=== PATIENT | male | born 1940 | race African-American/Black ===

== ENCOUNTER 2020-07-24 10:15 | Inpatient (IN) | payer OTHER ==
[~2020-07-24] VITALS: Ht 172.7 cm; Wt 78.9 kg
--- NOTE | 2020-07-24 00:32 | NUR ---
NURSE NOTES: Pt is on cardiac monitoring Afib and asymptomatic. Pt in confused and states no history of Afib. Notified MD. Will continue to monitor.
[2020-07-24 10:20] VITALS: BP 150/84
--- NOTE | 2020-07-24 10:20 | NUR ---
ED Nurse Note: Patient from home and brought in by RA 34 due to back pain and ,upper abd pain and chest pain x 4 days. States pain is worse when breathing. AAO x4, ambulatory with SOB upon exertion. Normally on oxygen at 5LPM.
--- NOTE | 2020-07-24 10:22 | Emergency Room Report ---
History of Present Illness General Chief Complaint: Chest Pain Source: Patient, EMS Present Illness HPI 79-year-old male past medical history of emphysema, history of smoking presents with abdominal pain sharp left lower abdomen to right abdomen severity is moderate, constant no known aggravating or alleviating factors, he states the pain also radiates to his chest patient denies shortness of breath no nausea no vomiting no fevers no chills, patient presents for evaluation and treatment no dysuria Allergies: Coded Allergies: No Known Allergies (Unverified , 07/24/20) COVID-19 Screening Contact w/high risk pt: No Experienced COVID-19 symptoms?: No COVID-19 Testing performed CLINICAL IMPLEMENTATION SPECIALIST: No Patient History Past Medical History: see triage record Reviewed Nursing Documentation: PMH: Agreed; PSxH: Agreed Nursing Documentation-PMH Past Medical History: No History, Except For Hx Hypertension: Yes Hx COPD: Yes Review of Systems All Other Systems: negative except mentioned in HPI Physical Exam Vital Signs Date Time Temp Pulse Resp B/P (MAP) Pulse Ox O2 Delivery O2 Flow Rate FiO2 07/24/20 10:10 97.9 66 18 118/68 (85) 99 Nasal Cannula 3.0 Sp02 EP Interpretation: reviewed, normal General Appearance: well appearing, no apparent distress, alert Head: normocephalic, atraumatic Eyes: bilateral eye PERRL, bilateral eye EOMI ENT: uvula midline, moist mucus membranes Neck: supple, thyroid normal, supple/symm/no masses Respiratory: no respiratory distress, no retraction, no accessory muscle use, decreased breath sounds Cardiovascular #1: normal peripheral pulses, no edema, no gallop, no murmur, irregularly irregular Gastrointestinal: soft, no guarding, no rebound, tenderness - Left middle left lower Musculoskeletal: normal inspection Neurologic: alert, oriented x3 Psychiatric: mood/affect normal Skin: no rash, warm/dry Medical Decision Making Diagnostic Impression: Primary Impression: Chest pain Qualified Codes: R07.9 - Chest pain, unspecified Additional Impression: Lung mass ER Course 79-year-old male presents with chest pain, abdominal pain differential includes AAA, pulmonary embolism, dissection CTA negative CTA shows a right pulmonary lung mass Patient will be admitted for ACS work-up as well as work-up of his pulmonary mass Patient admitted to Dr. Garcia Laboratory Tests Test 07/24/20 10:25 07/24/20 11:40 White Blood Count 6.8 K/UL (4.8-10.8) Red Blood Count 3.49 M/UL (4.70-6.10) L Hemoglobin 10.8 G/DL (14.2-18.0) L Hematocrit 33.7 % (42.0-52.0) L Mean Corpuscular Volume 96 FL (80-99) Mean Corpuscular Hemoglobin 30.9 PG (27.0-31.0) Mean Corpuscular Hemoglobin Concent 32.1 G/DL (32.0-36.0) Red Cell Distribution Width 14.1 % (11.6-14.8) Platelet Count 195 K/UL (150-450) Mean Platelet Volume 6.7 FL (6.5-10.1) Neutrophils (%) (Auto) 48.1 % (45.0-75.0) Lymphocytes (%) (Auto) 41.6 % (20.0-45.0) Monocytes (%) (Auto) 8.7 % (1.0-10.0) Eosinophils (%) (Auto) 0.2 % (0.0-3.0) Basophils (%) (Auto) 1.4 % (0.0-2.0) Prothrombin Time 12.4 SEC (9.30-11.50) H Prothrombin Time INR 1.1 (0.9-1.1) Activated Partial Thromboplast Time 32 SEC (23-33) Sodium Level 131 MMOL/L (136-145) L Potassium Level 4.3 MMOL/L (3.5-5.1) Chloride Level 100 MMOL/L (98-107) Carbon Dioxide Level 28 MMOL/L (21-32) Anion Gap 3 mmol/L (5-15) L Blood Urea Nitrogen 20 mg/dL (7-18) H Creatinine 1.4 MG/DL (0.55-1.30) H Estimated Glomerular Filtration Rate 59.4 mL/min (>60) Glucose Level 98 MG/DL (74-106) Calcium Level 12.0 MG/DL (8.5-10.1) H Total Bilirubin 0.4 MG/DL (0.2-1.0) Aspartate Amino Transferase (AST) 14 U/L (15-37) L Alanine Aminotransferase (ALT) 15 U/L (12-78) Alkaline Phosphatase 78 U/L (46-116) Troponin I 0.010 ng/mL (0.000-0.056) Pro-B-Type Natriuretic Peptide 1032 pg/mL (0-125) H Total Protein 8.7 G/DL (6.4-8.2) H Albumin 2.4 G/DL (3.4-5.0) L Globulin 6.3 g/dL Albumin/Globulin Ratio 0.4 (1.0-2.7) L Lipase 37 U/L (73-393) L Urine Color Pale yellow Urine Appearance Clear Urine pH 5 (4.5-8.0) Urine Specific [place] 1.010 (1.005-1.035) Urine Protein Negative (NEGATIVE) Urine Glucose (UA) Negative (NEGATIVE) Urine Ketones Negative (NEGATIVE) Urine Blood Negative (NEGATIVE) Urine Nitrite Negative (NEGATIVE) Urine Bilirubin Negative (NEGATIVE) Urine Urobilinogen Normal MG/DL (0.0-1.0) Urine Leukocyte Esterase Negative (NEGATIVE) Microbiology Date/Time Source Procedure Growth Status 07/24/20 10:25 Nasopharynx SARS-CoV-2 RdRp Gene Assay - Final Complete EKG Diagnostic Results Troponin ordered: Yes When was troponin ordered?: Jul 24, 2020 - 1013 EKG Time: 10:14 EP Interpretation: Atrial fibrillation, rate 71, QTc 393, no acute associations, left axis dev Rhythm Strip Diag. Results Rhythm Strip Time: 10:22 EP Interpretation: yes Rate: 71 Rhythm: other - Atrial fibrillation Chest X-Ray Diagnostic Results Chest X-Ray Diagnostic Results : Chest X-Ray Ordered: Yes # of Views/Limited/Complete: 1 View Indication: Chest Pain EP Interpretation: Yes Interpretation: no consolidation, no effusion, no pneumothorax, no acute cardiopulmonary disease Impression: No acute disease Electronically Signed by: Robin Fuchs MD CT/MRI/US Diagnostic Results CT/MRI/US Diagnostic Results : Impression Procedure: CTA Chest w Contrast ndication: Chest pain Technique: IV administration nonionic contrast. Spiral acquisitions obtained from the lung bases to the lung apices. Multiplanar and 3-D reconstructions were generated. Total dose length product 468 mGycm. CTDIvol(s) 3, 62, 4, 4 mGy. Dose reduction achieved using automated exposure control Comparison: none Findings: The pulmonary arteries are well-opacified. No intraluminal filling defects or other findings to suggest acute pulmonary embolus are evident. The main pulmonary artery is dilated, measuring 4.3 cm in diameter, and the right and left pulmonary arteries are also dilated. The ascending thoracic aorta is ectatic although not frankly aneurysmal, measuring up to 4.3 cm in diameter. There is a mass in the right upper lobe. This demonstrates peripheral enhancement, central attenuations just above necrosis. This measures 7 x 6.5 x 7 cm. There is right hilar adenopathy, with multiple nodes in the right hilum, largest measuring 4 cm in diameter, also demonstrating some central low-attenuation. There is also mediastinal lymphadenopathy, the largest precarinal node measuring 3.7 cm long axis dimension. The lymphadenopathy results in mild narrowing of some of the segmental pulmonary arteries. The lungs are hyperinflated. There is centrilobular emphysema and bilateral bullous changes, the latter predominantly in the upper lobes but with also considerable mostly interstitial bullae in the lower lobes. Areas of scarring are demonstrated bilaterally. There is a small left pleural effusion No infiltrates are demonstrated. The heart size is normal. There is a pericardial effusion mostly anteriorly which measures up to 11 mm in thickness. The included thyroid is unremarkable. There is bilateral gynecomastia. There is diffuse mild edema of the subcutaneous fat. Please refer to report of abdominal pelvic CT performed the same time for findings in the upper abdomen. Impression: Negative for evidence of acute pulmonary embolus or other acute pulmonary pathology. 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 Pericardial effusion Incidental finding of bilateral gynecomastia Evidence of mild anasarca, with diffuse edema of the subcutaneous fat. The CT scanner at [facility] is accredited by the [employer] and the scans are performed using protocols designed to limit radiation exposure to as low as reasonably achievable to attain images of sufficient resolution adequate for diagnostic evaluation. Dictated By: Joseph Mares MD Electronically Signed By:Joseph Mares MD Signed Date/Time07/24/20 1303 CC: Robin Fuchs MD Procedure: CT Abdomen Pelvis w/Contrast Clinical Indication: Abdominal pain Technique: No oral contrast utilized, per emergency room physician request IV administration nonionic contrast. Venous phase spiral acquisition obtained through the abdomen and pelvis. Multiplanar reconstructions were generated. Total dose length product 468 mGycm. CTDIvol(s) 3, 62, 4, 4 mGy. Dose reduction achieved using automated exposure control Comparison: none Findings: Lack of enteric contrast limits assessment of the GI tract. No evidence of colonic diverticulosis or diverticulitis. The appendix is not definitely visualized, but no findings to suggest acute appendicitis are evident. No small bowel distention. No free or loculated intraperitoneal gas or fluid is evident. Distal esophagus, stomach, duodenum are unremarkable. The gallbladder contains gallstones. No biliary ductal dilatation. The liver, bile ducts, pancreas, spleen, adrenals are unremarkable. The kidneys demonstrate multiple cysts. There is a complex septated cyst with calcification in the right upper pole. There are numerous subcentimeter low-attenuation renal lesions bilaterally, too small to characterize but most likely representing benign simple cysts. The bladder is markedly distended. It demonstrates numerous diverticula, several large. The prostate is mildly enlarged. There are degenerative changes of the lumbar spine. There is also evidence of multilevel prior laminectomies. Please refer to separate CTA chest report for findings in the visualized lung bases Impression: Limited assessment of the GI tract, due to lack of enteric contrast administration Markedly distended bladder. 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 Evidence of prior lumbar spine surgery Please refer to separate chest CT angiogram report for findings in the chest The CT scanner at [facility] is accredited by the [employer] and the scans are performed using protocols designed to limit radiation exposure to as low as reasonably achievable to attain images of sufficient resolution adequate for diagnostic evaluation. Dictated By: Joseph Mares MD Electronically Signed By:Joseph Mares MD Signed Date/Time07/24/20 1310 CC: Robin Fuchs MD Last Vital Signs Date Time Temp Pulse Resp B/P (MAP) Pulse Ox O2 Delivery O2 Flow Rate FiO2 07/24/20 10:10 97.9 66 18 118/68 (85) 99 Nasal Cannula 3.0 Disposition: ADMITTED INPATIENT Condition: Stable Robin Fuchs MD Jul 24, 2020 10:22
[2020-07-24] MEDS ORDERED: Morphine Sulfate 4mg/ml Inj (IV USE ONLY) IVP ONE (10:30)
[2020-07-24] MEDS ORDERED: Omnipaque 350 100ml vial INJ PRN (10:30)
[2020-07-24] MEDS ORDERED: Omnipaque-300 100ml vial INJ PRN (10:30)
--- NOTE | 2020-07-24 10:46 | NUR ---
ED Nurse Note: Collected blood and covid19 swab then sent.
--- NOTE | 2020-07-24 10:59 | NUR ---
ED Nurse Note: automotive brake technician Alysa at the bed side for CXR.
[2020-07-24 11:02] LABS: BASOPHILS % (AUTO) 1.4 % (0.0-2.0); EOSINOPHILS % (AUTO) 0.2 % (0.0-3.0); HEMATOCRIT 33.7 % (42.0-52.0); HEMOGLOBIN 10.8 G/DL (14.2-18.0); LYMPHOCYTES % (AUTO) 41.6 % (20.0-45.0); MEAN CORPUSCULAR VOLUME 96 FL (80-99); MONOCYTES % (AUTO) 8.7 % (1.0-10.0); NEUTROPHILS % (AUTO) 48.1 % (45.0-75.0); PLATELET COUNT 195 K/UL (150-450); RED BLOOD COUNT 3.49 M/UL (4.70-6.10); RED CELL DISTRIBUTION WIDTH 14.1 % (11.6-14.8); WHITE BLOOD COUNT 6.8 K/UL (4.8-10.8)
[2020-07-24 11:09] LABS: INR 1.1 (0.9-1.1)
[2020-07-24 11:10] LABS: CREATININE 1.4 MG/DL (0.55-1.30); POTASSIUM 4.3 MMOL/L (3.5-5.1)
[2020-07-24 11:20] LABS: ALBUMIN 2.4 G/DL (3.4-5.0); ALBUMIN/GLOBULIN RATIO 0.4 (1.0-2.7); BILIRUBIN,TOTAL 0.4 MG/DL (0.2-1.0)
--- NOTE | 2020-07-24 11:45 | NUR ---
ED Nurse Note: Collected urine specimen then sent.
--- NOTE | 2020-07-24 11:48 | NUR ---
ED Nurse Note: Left AC 20G IV placed for CTA
--- NOTE | 2020-07-24 11:53 | NUR ---
ED Nurse Note: Patient taken to CT via gurney in stable condition. Consent for CTA signed by patient.
[2020-07-24 11:54] LABS: APPEARANCE,URINE CLEAR; BILIRUBIN, URINE NEGATIVE (NEGATIVE); COLOR,URINE PALE YELLOW; GLUCOSE, URINE (UA) NEGATIVE (NEGATIVE); KETONES,URINE NEGATIVE (NEGATIVE); LEUKOCYTE ESTERASE ,URINE NEGATIVE (NEGATIVE); NITRITE,URINE NEGATIVE (NEGATIVE); PH,URINE 5 (4.5-8.0); PROTEIN,URINE NEGATIVE (NEGATIVE); UROBILINOGEN,URINE NORMAL MG/DL (0.0-1.0)
[2020-07-24 12:23] VITALS: BP 123/97
--- NOTE | 2020-07-24 13:08 | Diagnostic Imaging Report ---
ndication: Chest pain Technique: IV administration nonionic contrast. Spiral acquisitions obtained from the lung bases to the lung apices. Multiplanar and 3-D reconstructions were generated. Total dose length product 468 mGycm. CTDIvol(s) 3, 62, 4, 4 mGy. Dose reduction achieved using automated exposure control Comparison: none Findings: The pulmonary arteries are well-opacified. No intraluminal filling defects or other findings to suggest acute pulmonary embolus are evident. The main pulmonary artery is dilated, measuring 4.3 cm in diameter, and the right and left pulmonary arteries are also dilated. The ascending thoracic aorta is ectatic although not frankly aneurysmal, measuring up to 4.3 cm in diameter. There is a mass in the right upper lobe. This demonstrates peripheral enhancement, central attenuations just above necrosis. This measures 7 x 6.5 x 7 cm. There is right hilar adenopathy, with multiple nodes in the right hilum, largest measuring 4 cm in diameter, also demonstrating some central low-attenuation. There is also mediastinal lymphadenopathy, the largest precarinal node measuring 3.7 cm long axis dimension. The lymphadenopathy results in mild narrowing of some of the segmental pulmonary arteries. The lungs are hyperinflated. There is centrilobular emphysema and bilateral bullous changes, the latter predominantly in the upper lobes but with also considerable mostly interstitial bullae in the lower lobes. Areas of scarring are demonstrated bilaterally. There is a small left pleural effusion No infiltrates are demonstrated. The heart size is normal. There is a pericardial effusion mostly anteriorly which measures up to 11 mm in thickness. The included thyroid is unremarkable. There is bilateral gynecomastia. There is diffuse mild edema of the subcutaneous fat. Please refer to report of abdominal pelvic CT performed the same time for findings in the upper abdomen. Impression: Negative for evidence of acute pulmonary embolus or other acute pulmonary pathology. 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 Pericardial effusion Incidental finding of bilateral gynecomastia Evidence of mild anasarca, with diffuse edema of the subcutaneous fat. The CT scanner at [facility] is accredited by the [employer] and the scans are performed using protocols designed to limit radiation exposure to as low as reasonably achievable to attain images of sufficient resolution adequate for diagnostic evaluation.
--- NOTE | 2020-07-24 13:15 | Diagnostic Imaging Report ---
Clinical Indication: Abdominal pain Technique: No oral contrast utilized, per emergency room physician request IV administration nonionic contrast. Venous phase spiral acquisition obtained through the abdomen and pelvis. Multiplanar reconstructions were generated. Total dose length product 468 mGycm. CTDIvol(s) 3, 62, 4, 4 mGy. Dose reduction achieved using automated exposure control Comparison: none Findings: Lack of enteric contrast limits assessment of the GI tract. No evidence of colonic diverticulosis or diverticulitis. The appendix is not definitely visualized, but no findings to suggest acute appendicitis are evident. No small bowel distention. No free or loculated intraperitoneal gas or fluid is evident. Distal esophagus, stomach, duodenum are unremarkable. The gallbladder contains gallstones. No biliary ductal dilatation. The liver, bile ducts, pancreas, spleen, adrenals are unremarkable. The kidneys demonstrate multiple cysts. There is a complex septated cyst with calcification in the right upper pole. There are numerous subcentimeter low-attenuation renal lesions bilaterally, too small to characterize but most likely representing benign simple cysts. The bladder is markedly distended. It demonstrates numerous diverticula, several large. The prostate is mildly enlarged. There are degenerative changes of the lumbar spine. There is also evidence of multilevel prior laminectomies. Please refer to separate CTA chest report for findings in the visualized lung bases Impression: Limited assessment of the GI tract, due to lack of enteric contrast administration Markedly distended bladder. 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 Evidence of prior lumbar spine surgery Please refer to separate chest CT angiogram report for findings in the chest The CT scanner at [facility] is accredited by the [employer] and the scans are performed using protocols designed to limit radiation exposure to as low as reasonably achievable to attain images of sufficient resolution adequate for diagnostic evaluation.
[2020-07-24 14:32] VITALS: BP 106/79
[2020-07-24 16:25] VITALS: BP 112/75
--- NOTE | 2020-07-24 16:31 | NUR ---
ED Nurse Note: Telephone report given to DC Lorenzo for continuity of care.
--- NOTE | 2020-07-24 16:41 | Diagnostic Imaging Report ---
Indication: Chest pain Technique: One view of the chest Comparison: None Findings: Ovoid 9 x 6 cm masslike opacity is seen in the right lung periphery. There is some infiltrate at the left lung base. There is interstitial disease in the mid and lower lungs bilaterally. The heart size is upper limits normal. Impression: Right lung mass, also demonstrated on subsequent CT scan Left basilar infiltrate Bilateral interstitial disease
--- NOTE | 2020-07-24 17:19 | NUR ---
NURSE NOTES: received report from ED at 1630, waiting for pt to arrive.
--- NOTE | 2020-07-24 18:06 | NUR ---
ED Nurse Note: Patient transferred to telemetry unit with all his belongings. Pt was on portable cardiac cath technician and in stable condition.
--- NOTE | 2020-07-24 18:15 | NUR ---
NURSE NOTES: pt admitted in stable condition , pt has tremors and is very unstable on his feet. Urinal at bedside. conveyor monitor on pt. no signs of cardiac or respiratory distress at this time . Iv on L AC 20 and R hand 20. pt on 2L O2. pt is not stable to get up on his own. Bed in lowest position call light within reach, bed alarm on for safety. Belongings were reviewed with pt.
--- NOTE | 2020-07-24 19:38 | NUR ---
Pt received from DC U[place]. Pt is resting in bed and denies pain. Pt is A/Ox4 and unstable on feet with shakiness; states that shakiness started a few days ago. Pt is on cardiac monitoring SR and asymptomatic. Pt is on NC 2LPM and breathing unlabored. Pt uses urinal at bedside. Pt has LAC 20G and RH 20G patent with skin dry and intact. Bed is locked in lowest position with call light within reach. Will continue to monitor. Addendum: 07/25/20 at 0039 by Myles Thompson RN Pt has afib and asymptomatic. Notified Will continue to monitor.
[2020-07-24 20:00] VITALS: BP 135/73
[2020-07-24] MEDS ORDERED: HYDROcodone/Acetamin 5/325 tab ORAL PRN (22:00)
--- NOTE | 2020-07-24 22:30 | NUR ---
Received admission orders from MD. Will continue to monitor.
--- NOTE | 2020-07-24 22:45 | NUR ---
NURSE NOTES: Pt states he is from [facility] and cannot recall health history. No family contact provided. Social service consult implemented. Will continue to monitor. Addendum: 07/25/20 at 0043 by Myles Thompson RN Pt states taking home medications and cannot recall the names of the medications. Attempted to contact residence for family. Will continue to monitor.
[2020-07-25] VITALS: BP 122/74
--- NOTE | 2020-07-25 01:57 | NUR ---
Pt is using 2W walker. Will return. Will continue to monitor.
[2020-07-25 04:00] VITALS: BP 138/84
[2020-07-25 06:21] LABS: ANION GAP 2 mmol/L (5-15); BLOOD UREA NITROGEN 18 mg/dL (7-18); CALCIUM 12.2 MG/DL (8.5-10.1); CARBON DIOXIDE 31 MMOL/L (21-32); CHLORIDE 100 MMOL/L (98-107); CREATININE 1.2 MG/DL (0.55-1.30); PHOSPHORUS 2.6 MG/DL (2.5-4.9); POTASSIUM 4.4 MMOL/L (3.5-5.1); SODIUM 133 MMOL/L (136-145)
--- NOTE | 2020-07-25 07:22 | NUR ---
NURSE HAND-OFF REPORT: Important Events on Shift:Pt admitted to tele. Patient Status: Stable Diet: Cardiac Diet Pending Orders: Pending Results/Labs:AM Labs Pending MD notification: Latest Vital Signs: Temperature 97.9 , Pulse 106 , B/P 138 /84 , Respiratory Rate 22 , O2 SAT 94 , Nasal Cannula, O2 Flow Rate 4.0 . Vital Sign Comment: VSS EKG Rhythm: Sinus Tachycardia Rhythm change?: N MD Notified?: Stefania Garcia MD Response: Latest Knox Fall Score: 75 Fall Risk: High Risk Safety Measures: Call light Within Reach, Bed Alarm Zone 1, Side Rails Side Rails x2, Bed position Low and Locked. Fall Precautions: Report given to DC Agustin.
[2020-07-25 08:00] VITALS: BP 138/79
--- NOTE | 2020-07-25 08:01 | NUR ---
NURSE NOTES: Recvd pt and report. Pt is AOx1, appears to be very confused. pt is on NC @2L with no sign of sob or resp distress. Right hand tremor was noted, no previous records were sent with pt who came from a facility, pt is not from home. Mag level 1.0 and will be be replaced with 4 bags of Mag. Pt pulled out two IVs, new IV started on right FA 22g running NS @75/hr. Bed in lowest locked position, call light within reach, will continue with plan of care
[2020-07-25] MEDS: Aspirin Baby 81mg ORAL SCH (08:40)
[2020-07-25] MEDS: Morphine Sulfate 4mg/ml Inj (IV USE ONLY) IVP PRN ×2 (09:08→15:39)
--- NOTE | 2020-07-25 09:37 | NUR ---
SPORTS CLERK NOTE SW left a vm to DC Escudero from [facility] for call back. Office: [phone]
--- NOTE | 2020-07-25 09:41 | History & Physical ---
History of Present Illness General Reason for Hospitalization: Chest Pain Present Illness HPI 79-year-old male past medical history of emphysema, history of smoking presents with abdominal pain sharp left lower abdomen to right abdomen severity is moderate, constant no known aggravating or alleviating factors, he states the pain also radiates to his chest patient denies shortness of breath no nausea no vomiting no fevers no chills, patient presents for evaluation and treatment no dysuria Allergies: Coded Allergies: No Known Allergies (Unverified , 07/24/20) COVID-19 Screening Contact w/high risk pt: No Experienced COVID-19 symptoms?: No Medication History Medications Narrative Impression: Negative for evidence of acute pulmonary embolus or other acute pulmonary pathology. 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 Pericardial effusion Incidental finding of bilateral gynecomastia Evidence of mild anasarca, with diffuse edema of the subcutaneous fat. Patient History Healthcare decision maker Resuscitation status Advanced Directive on File Review of Systems Review of Symptoms General ROS: no weight loss or fever Psychological ROS: no depression or mood changes, no memory loss Ophthalmic ROS: no visual changes or eye irritation ENT ROS: no nasal congestion, hearing loss, dizziness Allergy and Immunology ROS: no allergic symptoms or urticaria Hematological and Lymphatic ROS: no swollen glands, unusual bleeding or bruising Endocrine ROS: no polyuria, polydipsia, weight changes, temperature intolerance Respiratory ROS: no cough, shortness of breath, or wheezing Cardiovascular ROS: no chest pain or dyspnea on exertion Gastrointestinal ROS: denies abdominal pain, bright red blood in stool. Musculoskeletal ROS: no myalgias or arthralgias Neurological ROS: no TIA or stroke symptoms Dermatological ROS: no new or changing skin lesions, rashes or pruritis Physical Exam Physical Exam General appearance: alert, cooperative, no distress, appears stated age Head: Normocephalic, without obvious abnormality, atraumatic Eyes: conjunctivae/corneas clear. PERRL, EOM's intact. Fundi benign Throat: Lips, mucosa, and tongue normal. Teeth and gums normal Neck: supple, symmetrical, trachea midline, no adenopathy, thyroid: not enlarged, symmetric, no tenderness/mass/nodules, no carotid bruit and no JVD Lungs: clear to auscultation bilaterally Heart: irr irr, S1, S2 normal, no murmur, click, rub or gallop Abdomen: soft, non-tender. Bowel sounds normal. No masses, no organomegaly Extremities: extremities normal, atraumatic, no cyanosis or edema Pulses: 2+ and symmetric Skin: Skin color, texture, turgor normal. No rashes or lesions Neurologic: Grossly normal Last 24 Hour Vital Signs Date Time Temp Pulse Resp B/P (MAP) Pulse Ox O2 Delivery O2 Flow Rate FiO2 07/25/20 08:00 98.1 83 20 138/79 (98) 100 07/25/20 04:00 97.9 61 22 138/84 (102) 94 07/25/20 04:00 106 07/25/20 00:00 85 07/25/20 00:00 96.6 83 22 122/74 (90) 93 07/24/20 23:00 91 07/24/20 21:48 Nasal Cannula 4.0 07/24/20 20:00 97.0 109 24 135/73 (93) 90 07/24/20 18:06 98.7 75 16 134/72 97 Nasal Cannula 2.0 07/24/20 16:25 98.3 67 20 112/75 96 Nasal Cannula 2.0 07/24/20 14:32 98.6 81 19 106/79 93 Nasal Cannula 2.0 07/24/20 12:23 98.4 76 18 123/97 94 Nasal Cannula 2.0 07/24/20 11:09 97.9 07/24/20 10:20 66 18 Nasal Cannula 5.0 07/24/20 10:20 97.9 80 16 150/84 97 Nasal Cannula 2.0 07/24/20 10:10 97.9 66 18 118/68 (85) 99 Nasal Cannula 3.0 Intake and Output 07/24/20 07/25/20 19:00 07:00 Intake Total 0 ml Balance 0 ml Intake Oral 0 ml # Voids 3 Laboratory Tests Test 07/24/20 10:25 07/24/20 11:40 07/25/20 00:20 07/25/20 04:54 White Blood Count 6.8 K/UL (4.8-10.8) Red Blood Count 3.49 M/UL (4.70-6.10) L Hemoglobin 10.8 G/DL (14.2-18.0) L Hematocrit 33.7 % (42.0-52.0) L Mean Corpuscular Volume 96 FL (80-99) Mean Corpuscular Hemoglobin 30.9 PG (27.0-31.0) Mean Corpuscular Hemoglobin Concent 32.1 G/DL (32.0-36.0) Red Cell Distribution Width 14.1 % (11.6-14.8) Platelet Count 195 K/UL (150-450) Mean Platelet Volume 6.7 FL (6.5-10.1) Neutrophils (%) (Auto) 48.1 % (45.0-75.0) Lymphocytes (%) (Auto) 41.6 % (20.0-45.0) Monocytes (%) (Auto) 8.7 % (1.0-10.0) Eosinophils (%) (Auto) 0.2 % (0.0-3.0) Basophils (%) (Auto) 1.4 % (0.0-2.0) Prothrombin Time 12.4 SEC (9.30-11.50) H Prothromb Time International Ratio 1.1 (0.9-1.1) Activated Partial Thromboplast Time 32 SEC (23-33) Sodium Level 131 MMOL/L (136-145) L 133 MMOL/L (136-145) L Potassium Level 4.3 MMOL/L (3.5-5.1) 4.4 MMOL/L (3.5-5.1) Chloride Level 100 MMOL/L (98-107) 100 MMOL/L (98-107) Carbon Dioxide Level 28 MMOL/L (21-32) 31 MMOL/L (21-32) Anion Gap 3 mmol/L (5-15) L 2 mmol/L (5-15) L Blood Urea Nitrogen 20 mg/dL (7-18) H 18 mg/dL (7-18) Creatinine 1.4 MG/DL (0.55-1.30) H 1.2 MG/DL (0.55-1.30) Estimat Glomerular Filtration Rate 59.4 mL/min (>60) > 60 mL/min (>60) Glucose Level 98 MG/DL (74-106) 89 MG/DL (74-106) Calcium Level 12.0 MG/DL (8.5-10.1) H 12.2 MG/DL (8.5-10.1) H Total Bilirubin 0.4 MG/DL (0.2-1.0) Aspartate Amino Transf (AST/SGOT) 14 U/L (15-37) L Alanine Aminotransferase (ALT/SGPT) 15 U/L (12-78) Alkaline Phosphatase 78 U/L (46-116) Troponin I 0.010 ng/mL (0.000-0.056) 0.025 ng/mL (0.000-0.056) 0.015 ng/mL (0.000-0.056) Pro-B-Type Natriuretic Peptide 1032 pg/mL (0-125) H Total Protein 8.7 G/DL (6.4-8.2) H Albumin 2.4 G/DL (3.4-5.0) L Globulin 6.3 g/dL Albumin/Globulin Ratio 0.4 (1.0-2.7) L Lipase 37 U/L (73-393) L Urine Color Pale yellow Urine Appearance Clear Urine pH 5 (4.5-8.0) Urine Specific [place] 1.010 (1.005-1.035) Urine Protein Negative (NEGATIVE) Urine Glucose (UA) Negative (NEGATIVE) Urine Ketones Negative (NEGATIVE) Urine Blood Negative (NEGATIVE) Urine Nitrite Negative (NEGATIVE) Urine Bilirubin Negative (NEGATIVE) Urine Urobilinogen Normal MG/DL (0.0-1.0) Urine Leukocyte Esterase Negative (NEGATIVE) Phosphorus Level 2.6 MG/DL (2.5-4.9) Magnesium Level 1.0 MG/DL (1.8-2.4) L Microbiology Date/Time Source Procedure Growth Status 07/24/20 10:25 Nasopharynx SARS-CoV-2 RdRp Gene Assay - Final Complete Height (Feet): 5 Height (Inches): 9.00 Weight (Pounds): 176 Medications Current Medications Medications (Trade) Dose Ordered Sig/Jordan Route PRN Reason Start Time Stop Time Status Last Admin Dose Admin Acetaminophen (Tylenol) 650 mg Q4H PRN ORAL Mild Pain (Pain Scale 1-3) 07/24/20 22:00 08/23/20 21:59 Acetaminophen/ Hydrocodone Bitart ([place] 5/325) 1 tab Q4H PRN ORAL Moderate Pain (Pain Scale 4-6) 07/24/20 22:00 07/31/20 21:59 Aspirin (ASA) 81 mg DAILY ORAL 07/25/20 09:00 09/08/20 08:59 07/25/20 08:40 Atorvastatin Calcium (Lipitor) 80 mg BEDTIME ORAL 07/25/20 21:00 10/23/20 20:59 Iohexol (OMNIPAQUE-300 100ml) 100 ml NOW PRN INJ Radiology Procedure 07/24/20 10:30 07/26/20 10:29 Iohexol (Omnipaque 350 100ml) 100 ml NOW PRN INJ Radiology Procedure 07/24/20 10:30 07/26/20 10:29 Magnesium Sulfate 100 ml @ 100 mls/hr Q1H IVPB 07/25/20 08:30 07/25/20 12:29 07/25/20 08:40 Morphine Sulfate (Morphine Sulfate) 4 mg Q4H PRN IVP Severe Pain (Pain Scale 7-10) 07/24/20 22:00 07/31/20 21:59 07/25/20 09:08 Ondansetron HCl (Zofran) 4 mg Q4H PRN IVP Nausea & Vomiting 07/24/20 22:00 08/23/20 21:59 Sodium Chloride 1,000 ml @ 75 mls/hr [id number] IV 07/24/20 23:00 08/23/20 22:59 07/24/20 23:19 Assessment/Plan Diagnosis [place] I: # Hypercalcemia likely due to maligancacy # New vs Paroxsymal Afib # Acute vs Chronic Encephalopathy 2/2 Hypercalcemia, worsening Parkinson/dementia # 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, 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 # Pulmonary HTN likely Class 3 # Hypercalcemia 2/2 ?Malignancy (MM) vs vs paraneoplastic syndrome ( squamous cell cancer) vs PHPTH # ?Chronic HFpEF 2/2 ischemic vs non-ischemic vs tachyarrhythmia induced cardiomyopathy - compensated # ?Chronic Respiratory Acidosis on home O2 # Normocytic Anemia 2/2 ACD vs DEYANIRA # Hx of COPD # Hx of Dementia # ?Parkinson's related dementia # Essential HTN - admit inpatient - check free calcium - vitamin D - PTH - pulm eval - surg eval - IVF - s/p lasix - monitor calcium level - continue with steroids - check echo - monitor BP - avoid nephrotoxins [facility] Hospital declaration Disposition: Once the patient is stable to leave the hospital, I anticipate the patient will likely be discharged to the following environment: SNf Estimated discharge date: 07/28/20 I spent 70 minutes on this patient's case, and 35 minutes was dedicated to counseling and/or care coordination. MIPS (Merit-based Incentive Payment System) Applicable CPT: 30941, 63046 CHECK ALL THAT ARE MET: Measure #5 (CHF): All ages. Prescribe KELLY/ARB upon discharge for patients with left ventricular systolic dysfunction. If not, the reason is clearly documented in the medical chart. Measure #8 (CHF): All ages. Prescribe a beta geraldine upon discharge for patients with left ventricular systolic dysfunction. If not, the reason is clearly documented in the medical chart. Measure #47 Advance care plan or surrogate decision maker documented in the medical record. Measure #130 The provider has documented, updated, or reviewed the patients current medication list and has documented it in the patients note. Measure #374 (All): Send report to referring provider. Measure #407(Sepsis due to MSSA bacteremia): Age 18+ Patient treated with a beta-lactam antibiotic (Nafcillin, Oxacillin or Cefazolin) as definitive therapy. MEDICAL COMPLEXITY High complexity medical decision making (need 2/3 categories) Problem - need 4 points Acute/new problem with new plan for workup (4 points, 1 max) Acute/new problem without additional workup (3 points, 1 max) Unstable chronic problem actively being managed (2 point each, 2 max) Stable chronic problem actively being managed (1 point each, 2 max) Self-limited/transient process (constipation, muscle ache, etc) (1 point each, 2 max) Data - need 4 points Reviewed labs/imaging studies (1 points, 2 max) Independent review of imaging (EKG, xrays, etc) (2 points, 2 max) Discussed case with consult/other MD/RN (2 points, 2 max) High Risk - qualify if have one of the following: Severe exacerbation of acute problem, acute mental status change, IV narcotics, monitoring drug levels (vancomycin, INR, tacrolimus etc) Terence Garcia M.D. Jul 25, 2020 09:41
[2020-07-25 12:00] VITALS: BP 134/78
[2020-07-25] MEDS ORDERED: Lidocaine 1% Plain 30 ml INJ PRN (12:00)
--- NOTE | 2020-07-25 12:15 | NUR ---
CASE MANAGEMENT: INITIAL REVIEW 79 YO M PRESENTED TO ED FROM HOME CC: CP PMHx; COPD. HTN. SI:CP. VS: T 97.9 HR 66 RR 18 B/P 118/68 SATS 99% ON 3L/NC LABS: NA 131 BUN 20 CR 1.4 CA 12 AST 14 BNP 1032 IS: ASA PO X1 MORPHINE IV X1 ZOFRAN IV X1 CTA shows a right pulmonary lung mass PATIENT ADMITTED TO TELE 07/24/2020 @ 1327 DCP HOME PLAN OF CARE: PULMO EVAL CONCURRENT REVIEW FOR 07/25/2020 SI:CP. LUNG MASS. VS: T 98.1 HR 83 RR 20 B/P 138/79 SATS 100% ON 4L/NC LABS: NA 133 CA 12.2 MG 1 IS;NS @ 75 ML/HR LIPITOR PO QHS ASA PO QD MAG SULFATE IV Q1H DECADRON IV Q6H TELE DCP: HOME PLAN OF CARE: CT BIOPSY>> LUNG MASS
--- NOTE | 2020-07-25 12:26 | General Progress Note ---
Subjective ROS Limited/Unobtainable: Yes - patient AOx2, unable to answer most questions appropriately Allergies: Coded Allergies: No Known Allergies (Unverified , 07/24/20) Subjective Mr. Blum is a 79M with PMH of Parkinsons, COPD, and HTN who presents from [facility] for chest pain and weakness. No other hx able to be obtained due to patient being poor historian and confused. He is able to answer very basic questions but otherwise unable to answer most of historical questions. Currently resting comfortably in chair, but confused. Objective Last 24 Hour Vital Signs Date Time Temp Pulse Resp B/P (MAP) Pulse Ox O2 Delivery O2 Flow Rate FiO2 07/25/20 09:45 98.1 07/25/20 08:00 98.1 83 20 138/79 (98) 100 07/25/20 08:00 92 07/25/20 04:00 97.9 61 22 138/84 (102) 94 07/25/20 04:00 106 07/25/20 00:00 85 07/25/20 00:00 96.6 83 22 122/74 (90) 93 07/24/20 23:00 91 07/24/20 21:48 Nasal Cannula 4.0 07/24/20 20:00 97.0 109 24 135/73 (93) 90 07/24/20 18:06 98.7 75 16 134/72 97 Nasal Cannula 2.0 07/24/20 16:25 98.3 67 20 112/75 96 Nasal Cannula 2.0 07/24/20 14:32 98.6 81 19 106/79 93 Nasal Cannula 2.0 07/24/20 12:23 98.4 76 18 123/97 94 Nasal Cannula 2.0 Intake and Output 07/24/20 07/25/20 19:00 07:00 Intake Total 0 ml Balance 0 ml Intake Oral 0 ml # Voids 3 Laboratory Tests 07/25/20 00:20: Troponin I 0.025 07/25/20 04:54: Troponin I 0.015, Sodium Level 133L, Potassium Level 4.4, Chloride Level 100, Carbon Dioxide Level 31, Anion Gap 2L, Blood Urea Nitrogen 18, Creatinine 1.2, Estimat Glomerular Filtration Rate > 60, Glucose Level 89, Calcium Level 12.2H, Phosphorus Level 2.6, Magnesium Level 1.0L Height (Feet): 5 Height (Inches): 9.00 Weight (Pounds): 176 General Appearance: no apparent distress, alert, confused EENT: PERRL/EOMI, normal ENT inspection Neck: non-tender, normal inspection Cardiovascular: normal peripheral pulses, regularly irregular, no JVD Respiratory/Chest: lungs clear, normal breath sounds, respiratory distress Abdomen: non tender, soft, no organomegaly Extremities: normal range of motion, non-tender Edema: no edema noted Arm (L), no edema noted Arm (R), no edema noted Leg (L), no edema noted Leg (R), no edema noted Pedal (L), no edema noted Pedal (R), no edema noted Generalized Edema: trace edema 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 Blum is a 79M with PMH of Dementia, COPD, and HTN who presents from [facility] for chest pain, weakness. 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 # Pulmonary HTN likely Class 3 # Hypercalcemia 2/2 ?Malignancy (MM) vs vs paraneoplastic syndrome ( squamous cell cancer) vs PHPTH # ?Chronic HFpEF 2/2 ischemic vs non-ischemic vs tachyarrhythmia induced cardiomyopathy - compensated # ?Chronic Respiratory Acidosis on home O2 # Normocytic Anemia 2/2 ACD vs DEYANIRA # Hx of COPD # Hx of Dementia # ?Parkinson's related dementia # Essential HTN P: - hemodynamically stable - on 4L NC, Keep O2 > 88% - duonebs prn - CTA: neg PE; large 7 x 6.5 x 7 cm right lung mass w/ mediastinal lymphadenopathy; unsure if patient aware as he is poor historian - will need biopsy for diagnosing and staging - ECHO: EF 60%, mild diastolic dysfunction, RSVP 65 - trops neg - ekg: afib w/o RVR - CHADVASC: 4 - Has-bled: 2 - keep K > 4, Mg > 2 - metoprolol 25 mg BID, defer anticoags to cardio - monitor renal function - f/u PTH, Iron studies, Ferritin, B12, folic acid, TSH - f/u SPEP, Immunofixation, LDH, B2 microglobulin - consult Dr. Chester, Pulm, recs appreciated - consult Dr. Otero, Cardio, recs appreciated - consult Dr. Laura, Heme/onc, recs appreciated - tried calling [facility] several times for further history, unable to reach them several times, [phone] CODE: Full Diet: Cardio GI: none DVT: Heparin 5000U BID Dispo: pending cardiology evaluation, work up of lung mass and possible malignancies Time spent on this encounter was 45 minutes which included 25 minutes of counseling and care coordination. I discussed with the nurse at bedside. Time of note may not reflect time patient was seen. Indio Gunn D.O Jul 25, 2020 12:26
--- NOTE | 2020-07-25 12:35 | NUR ---
[employer] FAX [phone] TELE [phone] [facility]- NEVIN Herbert PENDING [facility] FAX [phone] TELE [phone] [facility] [id number]
[2020-07-25] MEDS ORDERED: HydrALAZINE 25mg tab ORAL PRN (12:45)
--- NOTE | 2020-07-25 13:09 | NUR ---
BACK WEDGER NOTE SW met w/ pt to discuss his emergency contact. Pt reports he is single and does not have any children. Pt resides alone in his apartment. Pt reports having sisters. Pt was unable to recall the numbers. Pt denies having POA/AD. PT uses a walker and does not have a caregiver. SW is awaiting for call back from the residential RN. Addendum: 07/25/20 at 1344 by MARTHA HURD SW received a call back from DC Escudero. Emergency contacts: Rosalina Blum (sister) [phone] and Yusuf Blum (brother) [phone]. Both living in [facility].
--- NOTE | 2020-07-25 13:14 | Diagnostic Imaging Report ---
Indication: Chest pain Technique: One view of the chest Comparison: 07/24/2020 Findings: Right lung mass, bilateral basilar reticular opacities are unchanged. Normal heart size. Impression: Unchanged, over one day, findings as above.
[2020-07-25] MEDS ORDERED: Albuterol/Ipratropium 3ml neb HHN PRN (13:15)
--- NOTE | 2020-07-25 13:30 | Consultation ---
DATE OF CONSULTATION: 07/25/2020 PULMONARY CONSULTATION CONSULTING PHYSICIAN: Solitario Chester MD. HISTORY OF PRESENT ILLNESS: This is a 79-year-old male with history of advanced emphysema, chronic tobacco use. He came to the hospital with left lower quadrant pain. He was seen, admitted for workup of this condition. He underwent imaging studies in the emergency room including a chest CT pulmonary angiogram, which showed evidence of a right upper lobe mass. There is also right hilar and mediastinal adenopathy. He has severe bullous emphysema as well as evidence of pulmonary arterial hypertension. The patient is a very poor historian and cannot provide any further information regarding his medical conditions. PAST MEDICAL HISTORY: Notable for hypertension, emphysema. CURRENT MEDICATIONS: Include Tylenol, aspirin, Lipitor, and [place]. REVIEW OF SYSTEMS: Denies any headaches, hematemesis, melena, hematochezia or night sweats. He admits to having weight loss. PHYSICAL EXAMINATION: GENERAL: Reveals a 79-year-old male. VITAL SIGNS: Blood pressure 130/70, heart rate 84, respirations , he is afebrile. HEENT: Unremarkable. CHEST: breath sounds bilaterally. HEART: Normal heart sounds. ABDOMEN: Soft. EXTREMITIES: There is no edema. LABORATORY DATA: Lab testing shows hemoglobin 10.8, otherwise normal CBC and BMP. Calcium is high at 12.0 with an albumin of 2.4. IMPRESSION: 1. Hypercalcemia, suspect secondary to malignancy. 2. Lung mass. 3. Emphysema. 4. Hypertension. DISCUSSION: Admit to the hospital. Agree with IV fluid hydration. We will request CT-guided lung biopsy. The patient will benefit from steroid, which I will initiate. We will follow carefully. Solitario Chester M.D. DR: CALVIN JOB#: [id number] CC:
--- NOTE | 2020-07-25 13:45 | NUR ---
DC NOTIFICATION TO [facility] DC Escudero RN from [facility] Office: [phone]
--- NOTE | 2020-07-25 14:13 | Consultation ---
History of Present Illness General Date patient seen: Jul 25, 2020 Reason for Hospitalization: Chest Pain Present Illness HPI this is a 79-year-old male with past medical history of emphysema, history of smoking presents with abdominal pain sharp left lower abdomen to right abdomen severity is moderate, constant no known aggravating or alleviating factors, he states the pain also radiates to his chest patient denies shortness of breath no nausea no vomiting no fevers no chills, patient presents for evaluation and treatment no dysuria Noted with large lung mass. surgery called to evaluate and assist with care Allergies: Coded Allergies: No Known Allergies (Unverified , 07/24/20) COVID-19 Screening Contact w/high risk pt: No Experienced COVID-19 symptoms?: No Medication History No Active Prescriptions or Reported Meds Patient History History Provided By: Patient, Medical Record, PMD Healthcare decision maker Resuscitation status Advanced Directive on File Past Medical/Surgical History Past Medical/Surgical History: (1) Lung mass (2) Chest pain Review of Systems Review of Symptoms General ROS: no weight loss or fever Psychological ROS: no depression or mood changes, no memory loss Ophthalmic ROS: no visual changes or eye irritation ENT ROS: no nasal congestion, hearing loss, dizziness Allergy and Immunology ROS: no allergic symptoms or urticaria Hematological and Lymphatic ROS: no swollen glands, unusual bleeding or bruising Endocrine ROS: no polyuria, polydipsia, weight changes, temperature intolerance Respiratory ROS: no cough, shortness of breath, or wheezing Cardiovascular ROS: no chest pain or dyspnea on exertion Gastrointestinal ROS: denies abdominal pain, bright red blood in stool. Musculoskeletal ROS: no myalgias or arthralgias Neurological ROS: no TIA or stroke symptoms Dermatological ROS: no new or changing skin lesions, rashes or pruritis Physical Exam Physical Exam General appearance: alert, cooperative, no distress, appears stated age Head: Normocephalic, without obvious abnormality, atraumatic Eyes: conjunctivae/corneas clear. PERRL, EOM's intact. Fundi benign Throat: Lips, mucosa, and tongue normal. Teeth and gums normal Neck: supple, symmetrical, trachea midline, no adenopathy, thyroid: not enlarged, symmetric, no tenderness/mass/nodules, no carotid bruit and no JVD Lungs: clear to auscultation bilaterally Heart: regular rate and rhythm, S1, S2 normal, no murmur, click, rub or gallop Abdomen: soft, non-tender. Bowel sounds normal. No masses, no organomegaly Extremities: extremities normal, atraumatic, no cyanosis or edema Pulses: 2+ and symmetric Skin: Skin color, texture, turgor normal. No rashes or lesions Neurologic: Grossly normal Last 24 Hour Vital Signs Date Time Temp Pulse Resp B/P (MAP) Pulse Ox O2 Delivery O2 Flow Rate FiO2 07/25/20 12:00 97.5 65 20 134/78 (96) 98 07/25/20 12:00 82 07/25/20 09:45 98.1 07/25/20 09:00 Room Air 07/25/20 08:00 98.1 83 20 138/79 (98) 100 07/25/20 08:00 92 07/25/20 04:00 97.9 61 22 138/84 (102) 94 07/25/20 04:00 106 07/25/20 00:00 85 07/25/20 00:00 96.6 83 22 122/74 (90) 93 07/24/20 23:00 91 07/24/20 21:48 Nasal Cannula 4.0 07/24/20 20:00 97.0 109 24 135/73 (93) 90 07/24/20 18:06 98.7 75 16 134/72 97 Nasal Cannula 2.0 07/24/20 16:25 98.3 67 20 112/75 96 Nasal Cannula 2.0 07/24/20 14:32 98.6 81 19 106/79 93 Nasal Cannula 2.0 Intake and Output 07/24/20 07/25/20 19:00 07:00 Intake Total 0 ml Balance 0 ml Intake Oral 0 ml # Voids 3 Laboratory Tests Test 07/25/20 00:20 07/25/20 04:54 Troponin I 0.025 ng/mL (0.000-0.056) 0.015 ng/mL (0.000-0.056) Sodium Level 133 MMOL/L (136-145) L Potassium Level 4.4 MMOL/L (3.5-5.1) Chloride Level 100 MMOL/L (98-107) Carbon Dioxide Level 31 MMOL/L (21-32) Anion Gap 2 mmol/L (5-15) L Blood Urea Nitrogen 18 mg/dL (7-18) Creatinine 1.2 MG/DL (0.55-1.30) Estimat Glomerular Filtration Rate > 60 mL/min (>60) Glucose Level 89 MG/DL (74-106) Calcium Level 12.2 MG/DL (8.5-10.1) H Phosphorus Level 2.6 MG/DL (2.5-4.9) Magnesium Level 1.0 MG/DL (1.8-2.4) L Height (Feet): 5 Height (Inches): 9.00 Weight (Pounds): 176 Medications Current Medications Medications (Trade) Dose Ordered Sig/Jordan Route PRN Reason Start Time Stop Time Status Last Admin Dose Admin Acetaminophen (Tylenol) 650 mg Q4H PRN ORAL Mild Pain (Pain Scale 1-3) 07/24/20 22:00 08/23/20 21:59 Acetaminophen/ Hydrocodone Bitart (Wellpinit 5/325) 1 tab Q4H PRN ORAL Moderate Pain (Pain Scale 4-6) 07/24/20 22:00 07/31/20 21:59 Albuterol/ Ipratropium (Albuterol/ Ipratropium) 3 ml Q4H PRN HHN Shortness of Breath 07/25/20 13:15 07/30/20 13:14 Aspirin (ASA) 81 mg DAILY ORAL 07/25/20 09:00 09/08/20 08:59 07/25/20 08:40 Atorvastatin Calcium (Lipitor) 80 mg BEDTIME ORAL 07/25/20 21:00 10/23/20 20:59 Dexamethasone Sodium Phosphate (Decadron 4mg/ml vial) 4 mg Q6HR IVP 07/25/20 12:00 10/23/20 11:59 07/25/20 13:01 Heparin Sodium (Porcine) (Heparin 5000 units/ml) 5,000 units EVERY 12 HOURS SUBQ 07/25/20 21:00 09/08/20 20:59 Hydralazine HCl (Apresoline) 25 mg Q6HR PRN ORAL For High Blood Pressure >170 07/25/20 12:45 10/23/20 12:44 Iohexol (OMNIPAQUE-300 100ml) 100 ml NOW PRN INJ Radiology Procedure 07/24/20 10:30 07/26/20 10:29 Iohexol (Omnipaque 350 100ml) 100 ml NOW PRN INJ Radiology Procedure 07/24/20 10:30 07/26/20 10:29 Lidocaine HCl (Xylocaine 1% 30ml) 30 ml NOW PRN INJ Radiology Procedure 07/25/20 12:00 07/28/20 11:59 Metoprolol Tartrate (Lopressor) 25 mg Q12HR ORAL 07/25/20 21:00 10/23/20 20:59 Morphine Sulfate (Morphine Sulfate) 4 mg Q4H PRN IVP Severe Pain (Pain Scale 7-10) 07/24/20 22:00 07/31/20 21:59 07/25/20 09:08 Ondansetron HCl (Zofran) 4 mg Q4H PRN IVP Nausea & Vomiting 07/24/20 22:00 08/23/20 21:59 Sodium Chloride 1,000 ml @ 75 mls/hr [id number] IV 07/24/20 23:00 08/23/20 22:59 07/25/20 13:01 Assessment/Plan Problem List: (1) Abdominal pain ICD Codes: R10.9 - Unspecified abdominal pain SNOMED: 08736320 (2) Lung mass Assessment & Plan: The pulmonary arteries are well-opacified. No intraluminal filling defects or other findings to suggest acute pulmonary embolus are evident. The main pulmonary artery is dilated, measuring 4.3 cm in diameter, and the right and left pulmonary arteries are also dilated. The ascending thoracic aorta is ectatic although not frankly aneurysmal, measuring up to 4.3 cm in diameter. There is a mass in the right upper lobe. This demonstrates peripheral enhancement, central attenuations just above necrosis. This measures 7 x 6.5 x 7 cm. There is right hilar adenopathy, with multiple nodes in the right hilum, largest measuring 4 cm in diameter, also demonstrating some central low-attenuation. There is also mediastinal lymphadenopathy, the largest precarinal node measuring 3.7 cm long axis dimension. The lymphadenopathy results in mild narrowing of some of the segmental pulmonary arteries. The lungs are hyperinflated. There is centrilobular emphysema and bilateral bullous changes, the latter predominantly in the upper lobes but with also considerable mostly interstitial bullae in the lower lobes. Areas of scarring are demonstrated bilaterally. There is a small left pleural effusion No infiltrates are dem onstrated. The heart size is normal. There is a pericardial effusion mostly anteriorly which measures up to 11 mm in thickness. The included thyroid is unremarkable. There is bilateral gynecomastia. There is diffuse mild edema of the subcutaneous fat. Please refer to report of abdominal pelvic CT performed the same time for findings in the upper abdomen. Impression: Negative for evidence of acute pulmonary embolus or other acute pulmonary pathology. 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 Pericardial effusion Incidental finding of bilateral gynecomastia Evidence of mild anasarca, with diffuse edema of the subcutaneous fat. ICD Codes: R91.8 - Other nonspecific abnormal finding of lung field SNOMED: 905128810 (3) Chest pain ICD Codes: R07.9 - Chest pain, unspecified SNOMED: 53244943 Qualifiers: Qualified Codes: R07.9 - Chest pain, unspecified Pedro Burton Jul 25, 2020 14:13
[2020-07-25 15:20] LABS: FERRITIN 1120 NG/ML (8-388); LACTATE DEHYDROGENASE 200 U/L (81-234)
[2020-07-25 16:00] VITALS: BP 127/80
[2020-07-25 17:20] LABS: % IRON SATURATION 22 % (15-50); IRON 33 ug/dL (50-175); TOTAL IRON BINDING CAPACITY 150 ug/dL (250-450)
--- NOTE | 2020-07-25 19:20 | NUR ---
NURSE NOTES: Patient received from DC Agustin. Patient is A/O x 2. Patient is on 2 L Nasal cannula and no respiratory distress noted. Patient has no complains as of this moment. Patient's urinal is on his bed, able to reach. Patient has a sequential compression device on and running. Patient has a right forearm 22 gauge patent and flushed. Patient's bed is in lowest position and locked, call light within reach. Will continue to monitor.
[2020-07-25 20:00] VITALS: BP 135/63
--- NOTE | 2020-07-25 20:10 | NUR ---
NURSE NOTES: Notified and left a message to Dr. Gunn regarding patient's CT lung biopsy consent as patient is confused. Awaiting for call back.
[2020-07-25] MEDS: Heparin 5000 units/ml inj SUBQ SCH (21:00)
[2020-07-25] MEDS: Atorvastatin 80mg tab ORAL SCH (21:52)
[2020-07-26] VITALS (9 sets, daily range): BP systolic 120–157; BP diastolic 42–98
[2020-07-26] MEDS ORDERED: LORazepam 0.5mg tab ORAL PRN (06:45)
--- NOTE | 2020-07-26 07:14 | NUR ---
NURSES NOTES: Pt received from DC Pitts. Pt is resting in bed and denies pain. Pt is A/Ox1-2 and drowsy. Pt is on cardiac monitoring SR and asymptomatic. Pt is on NC 2LPM and SATing @ 96%. Pt has a condom catheter in place and draining well. No pain noted. Pt has LAC 20G which is patent with skin dry and intact. Bed is locked in lowest position with call light within reach. Will continue to monitor.
[2020-07-26 07:16] LABS: BASOPHILS % (AUTO) 0.6 % (0.0-2.0); HEMATOCRIT 32.6 % (42.0-52.0); HEMOGLOBIN 10.8 G/DL (14.2-18.0); LYMPHOCYTES % (AUTO) 22.1 % (20.0-45.0); MEAN CORPUSCULAR VOLUME 94 FL (80-99); MONOCYTES % (AUTO) 3.6 % (1.0-10.0); NEUTROPHILS % (AUTO) 73.7 % (45.0-75.0); PLATELET COUNT 202 K/UL (150-450); RED BLOOD COUNT 3.48 M/UL (4.70-6.10); RED CELL DISTRIBUTION WIDTH 14.3 % (11.6-14.8); WHITE BLOOD COUNT 5.7 K/UL (4.8-10.8)
[2020-07-26 07:20] LABS: ANION GAP 5 mmol/L (5-15); BLOOD UREA NITROGEN 21 mg/dL (7-18); CALCIUM 12.2 MG/DL (8.5-10.1); CARBON DIOXIDE 27 MMOL/L (21-32); CHLORIDE 103 MMOL/L (98-107); CREATININE 1.3 MG/DL (0.55-1.30); PHOSPHORUS 2.6 MG/DL (2.5-4.9); POTASSIUM 4.4 MMOL/L (3.5-5.1); SODIUM 135 MMOL/L (136-145)
--- NOTE | 2020-07-26 07:30 | NUR ---
NURSE HAND-OFF REPORT: Important Events on Shift:[Patient scheduled to have CT biopsy. Unable to have consent sign as patient is confused. Notified doctor and endorse to morning shift] Patient Status: [Stable] Diet: [NPO] Pending Orders: [] Pending Results/Labs:[] Pending MD notification:[] Latest Vital Signs: Temperature 96.8 , Pulse 69 , B/P 126 /67 , Respiratory Rate 24 , O2 SAT 97 , Nasal Cannula, O2 Flow Rate 2.0 . Vital Sign Comment: [] EKG Rhythm: SR with 1 degree AVB Rhythm change?: N MD Notified?: Stefania Garcia MD Response: Latest Knox Fall Score: 75 Fall Risk: High Risk Safety Measures: Call light Within Reach, Bed Alarm Zone 1, Side Rails Side Rails x2, Bed position Low and Locked. Fall Precautions: Yellow Socks Yellow Gown Door Sign Patient Fall Education Report given to [DC Ferrer].
--- NOTE | 2020-07-26 08:59 | Consultation ---
History of Present Illness General Chief Complaint: Chest Pain Present Illness Allergies: Coded Allergies: No Known Allergies (Unverified , 07/24/20) Patient History Healthcare decision maker Resuscitation status Advanced Directive on File Physical Exam Last 24 Hour Vital Signs Date Time Temp Pulse Resp B/P (MAP) Pulse Ox O2 Delivery O2 Flow Rate FiO2 07/26/20 04:00 69 07/26/20 04:00 96.8 72 24 126/67 (86) 97 07/26/20 00:00 68 07/26/20 00:00 96.7 79 22 157/93 (114) 100 07/25/20 21:52 81 135/63 07/25/20 21:00 Nasal Cannula 2.0 07/25/20 20:00 96.3 81 22 135/63 (87) 92 07/25/20 20:00 64 07/25/20 16:09 97.5 07/25/20 16:00 97.5 67 20 127/80 (96) 98 07/25/20 16:00 82 07/25/20 12:00 97.5 65 20 134/78 (96) 98 07/25/20 12:00 82 07/25/20 09:45 98.1 07/25/20 09:00 Room Air Intake and Output 07/25/20 07/26/20 19:00 07:00 Intake Total 520 ml Output Total 1750 ml 250 ml Balance -1230 ml -250 ml Intake Oral 120 ml IV Total 400 ml Output Urine Total 1750 ml 250 ml # Voids 1 Laboratory Tests Test 07/25/20 14:20 07/26/20 01:57 07/26/20 06:15 Calcium (Send out) Pending Iron Level 33 ug/dL (50-175) L Total Iron Binding Capacity 150 ug/dL (250-450) L Percent Iron Saturation 22 % (15-50) Unsaturated Iron Binding 117 ug/dL (112-346) Ferritin 1120 NG/ML (8-388) H Lactate Dehydrogenase 200 U/L (81-234) Total Protein (PEP) Pending Albumin (PEP) Pending Globulin (PEP) Pending Albumin/Globulin Ratio Pending [id number] Pending [id number] Pending Beta Globulins Pending [id number] Pending Beta Gamma Globulin Pending PEP Abnormal Protein Bands Pending Protein Electrophoresis Interpret Pending Vitamin B12 Level 828 PG/ML (193-986) Folate 43.0 NG/ML (8.6-58.9) Thyroid Stimulating Hormone (TSH) 0.668 uiU/mL (0.358-3.740) Parathyroid Hormone (Intact) Pending Immunoglobulin G Pending Immunoglobulin A Pending Immunoglobulin M Pending Immunofixation Screen Pending POC Whole Blood Glucose 146 MG/DL (74-106) H White Blood Count 5.7 K/UL (4.8-10.8) Red Blood Count 3.48 M/UL (4.70-6.10) L Hemoglobin 10.8 G/DL (14.2-18.0) L Hematocrit 32.6 % (42.0-52.0) L Mean Corpuscular Volume 94 FL (80-99) Mean Corpuscular Hemoglobin 31.1 PG (27.0-31.0) H Mean Corpuscular Hemoglobin Concent 33.1 G/DL (32.0-36.0) Red Cell Distribution Width 14.3 % (11.6-14.8) Platelet Count 202 K/UL (150-450) Mean Platelet Volume 6.8 FL (6.5-10.1) Neutrophils (%) (Auto) 73.7 % (45.0-75.0) Lymphocytes (%) (Auto) 22.1 % (20.0-45.0) Monocytes (%) (Auto) 3.6 % (1.0-10.0) Eosinophils (%) (Auto) 0.0 % (0.0-3.0) Basophils (%) (Auto) 0.6 % (0.0-2.0) Sodium Level 135 MMOL/L (136-145) L Potassium Level 4.4 MMOL/L (3.5-5.1) Chloride Level 103 MMOL/L (98-107) Carbon Dioxide Level 27 MMOL/L (21-32) Anion Gap 5 mmol/L (5-15) Blood Urea Nitrogen 21 mg/dL (7-18) H Creatinine 1.3 MG/DL (0.55-1.30) Estimat Glomerular Filtration Rate > 60 mL/min (>60) Glucose Level 114 MG/DL (74-106) H Calcium Level 12.2 MG/DL (8.5-10.1) H Ionized Calcium (Measured) Pending Phosphorus Level 2.6 MG/DL (2.5-4.9) Magnesium Level 1.5 MG/DL (1.8-2.4) L Vitamin D 25-Hydroxy Pending 25-Hydroxy Vitamin D2 Pending 25-Hydroxy Vitamin D3 Pending Height (Feet): 5 Height (Inches): 9.00 Weight (Pounds): 176 Medications Current Medications Medications (Trade) Dose Ordered Sig/Jordan Route PRN Reason Start Time Stop Time Status Last Admin Dose Admin Acetaminophen (Tylenol) 650 mg Q4H PRN ORAL Mild Pain (Pain Scale 1-3) 07/24/20 22:00 08/23/20 21:59 Acetaminophen/ Hydrocodone Bitart ([place] 5/325) 1 tab Q4H PRN ORAL Moderate Pain (Pain Scale 4-6) 07/24/20 22:00 07/31/20 21:59 Albuterol/ Ipratropium (Albuterol/ Ipratropium) 3 ml Q4H PRN HHN Shortness of Breath 07/25/20 13:15 07/30/20 13:14 Aspirin (ASA) 81 mg DAILY ORAL 07/25/20 09:00 09/08/20 08:59 07/25/20 08:40 Atorvastatin Calcium (Lipitor) 80 mg BEDTIME ORAL 07/25/20 21:00 10/23/20 20:59 07/25/20 21:52 Dexamethasone Sodium Phosphate (Decadron 4mg/ml vial) 4 mg Q6HR IVP 07/25/20 12:00 10/23/20 11:59 07/26/20 06:00 Heparin Sodium (Porcine) (Heparin 5000 units/ml) 5,000 units EVERY 12 HOURS SUBQ 07/25/20 21:00 09/08/20 20:59 Hydralazine HCl (Apresoline) 25 mg Q6HR PRN ORAL For High Blood Pressure >170 07/25/20 12:45 10/23/20 12:44 Iohexol (OMNIPAQUE-300 100ml) 100 ml NOW PRN INJ Radiology Procedure 07/24/20 10:30 07/26/20 10:29 Iohexol (Omnipaque 350 100ml) 100 ml NOW PRN INJ Radiology Procedure 07/24/20 10:30 07/26/20 10:29 Lidocaine HCl (Xylocaine 1% 30ml) 30 ml NOW PRN INJ Radiology Procedure 07/25/20 12:00 07/28/20 11:59 Lorazepam (Ativan) 0.5 mg Q4H PRN ORAL For Anxiety 07/26/20 06:45 08/02/20 06:44 Magnesium Sulfate 100 ml @ 100 mls/hr ONCE ONCE IVPB 07/26/20 09:00 07/26/20 09:59 Metoprolol Tartrate (Lopressor) 25 mg Q12HR ORAL 07/25/20 21:00 10/23/20 20:59 07/25/20 21:52 Morphine Sulfate (Morphine Sulfate) 4 mg Q4H PRN IVP Severe Pain (Pain Scale 7-10) 07/24/20 22:00 07/31/20 21:59 07/25/20 15:39 Ondansetron HCl (Zofran) 4 mg Q4H PRN IVP Nausea & Vomiting 07/24/20 22:00 08/23/20 21:59 Pamidronate Disodium 60 mg/ Sodium Chloride 550 ml @ 137.5 mls/ hr ONCE ONCE IVPB 07/26/20 10:00 07/26/20 13:59 Sodium Chloride 1,000 ml @ 150 mls/hr Q6H40M IV 07/24/20 23:00 08/23/20 22:59 07/26/20 02:28 Assessment/Plan Assessment/Plan: Oncology Consultation RESrinivasa MD: Genny RFC: Primary Lung mass DOS 07/26/2020 HPI 79-year-old male past medical history of emphysema, history of smoking presents with abdominal pain sharp left lower abdomen to right abdomen severity is moderate, constant no known aggravating or alleviating factors, he states the pain also radiates to his chest patient denies shortness of breath no nausea no vomiting no fevers no chills, patient presents for evaluation and treatment no dysuria Noted with large lung mass and onc was consulted. Allergies: No Known Allergies (Unverified , 07/24/20) COVID-19 Screening Contact w/high risk pt: No Experienced COVID-19 symptoms?: No Medication History Medications Narrative ImaginG: Impression: Negative for evidence of acute pulmonary embolus or other acute pulmonary pathology. 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 Pericardial effusion Incidental finding of bilateral gynecomastia Evidence of mild anasarca, with diffuse edema of the subcutaneous fat. Patient History Healthcare decision maker Resuscitation status Review of Systems General: no weight loss or fever Psychological: no depression or mood changes, no memory loss Ophthalmic no visual changes or eye irritation ENT ROS: no nasal congestion, hearing loss, dizziness Allergy and Immunology ROS: no allergic symptoms or urticaria Hematological and Lymphatic ROS: no swollen glands, unusual bleeding or bruising Endocrine ROS: no polyuria, polydipsia, weight changes, temperature intolerance Respiratory ROS: no cough, shortness of breath, or wheezing Cardiovascular ROS: no chest pain or dyspnea on exertion Gastrointestinal ROS: denies abdominal pain, bright red blood in stool. Musculoskeletal ROS: no myalgias or arthralgias Neurological ROS: no TIA or stroke symptoms Dermatological ROS: no new or changing skin lesions, rashes or pruritis Physical Exam General appearance: alert, cooperative, no distress Heent: Normocephalic, without obvious abnormality, atraumatic, EOM's intact. Fundi benign supple, symmetrical, trachea midline, no adenopathy Lungs: clear to auscultation bilaterally CV: irr irr, S1, S2 normal, no murmur, click, rub or gallop Abd: soft, non-tender. 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 (stage III v IV) --> recommend a ct guided biopsy --> also r/o mets with ct a/p-->unremarkable --> PET recommend outpatient --> tumor markers have been ordered # Hypercalcemia likely due to maligancacy --> ivfs as needed, zometa/pamidronate if remains elevated --> lasix can be given prn # New vs Paroxsymal Afib --> as per cards # Acute vs Chronic Encephalopathy 2/2 Hypercalcemia, worsening Parkinson/dementia --> r/o infectious etiology # Normocytic Anemia 2/2 ACD vs DEYANIRA --> anemia panel if lower # Pulmonary HTN likely Class 3 # ?Chronic HFpEF 2/2 ischemic vs non-ischemic vs tachyarrhythmia induced cardiomyopathy - compensated # ?Chronic Respiratory Acidosis on home O2 # Hx of COPD # Hx of Dementia # ?Parkinson's related dementia # Essential HTN Appreciate consultation and dw Al Lema MD Jul 26, 2020 08:59
[2020-07-26] MEDS: Heparin 5000 units/ml inj SUBQ SCH ×2 (09:00→21:30)
[2020-07-26] MEDS: Aspirin Baby 81mg ORAL SCH (09:27)
--- NOTE | 2020-07-26 09:32 | NUR ---
NURSES NOTES: Heparin on hold due to procedure today clicked medication as administered but was not administered.
--- NOTE | 2020-07-26 09:34 | General Progress Note ---
Subjective ROS Limited/Unobtainable: Yes - altered, unable to answer any question appropriately Allergies: Coded Allergies: No Known Allergies (Unverified , 07/24/20) Subjective no acute events overnight. Patient a little more confused today. Does not follow any commands. Scheduled for CT guided biopsy. Objective Last 24 Hour Vital Signs Date Time Temp Pulse Resp B/P (MAP) Pulse Ox O2 Delivery O2 Flow Rate FiO2 07/26/20 04:00 69 07/26/20 04:00 96.8 72 24 126/67 (86) 97 07/26/20 00:00 68 07/26/20 00:00 96.7 79 22 157/93 (114) 100 07/25/20 21:52 81 135/63 07/25/20 21:00 Nasal Cannula 2.0 07/25/20 20:00 96.3 81 22 135/63 (87) 92 07/25/20 20:00 64 07/25/20 16:09 97.5 07/25/20 16:00 97.5 67 20 127/80 (96) 98 07/25/20 16:00 82 07/25/20 12:00 97.5 65 20 134/78 (96) 98 07/25/20 12:00 82 07/25/20 09:45 98.1 Intake and Output 07/25/20 07/26/20 19:00 07:00 Intake Total 520 ml Output Total 1750 ml 250 ml Balance -1230 ml -250 ml Intake Oral 120 ml IV Total 400 ml Output Urine Total 1750 ml 250 ml # Voids 1 Laboratory Tests 07/25/20 14:20: Calcium (Send out) 12.3H, Iron Level 33L, Total Iron Binding Capacity 150L, Percent Iron Saturation 22, Unsaturated Iron Binding 117, Ferritin 1120H, Lactate Dehydrogenase 200, Total Protein (PEP) [Pending], Albumin (PEP) [Pending], Globulin (PEP) [Pending], Albumin/Globulin Ratio [Pending], Cbivy-8-Gbgkkdqpk [Pending], Qncbe-9-Yvcdrwwpk [Pending], Beta Globulins [Pending], Livz-3-Jmmamlxcxcsjc [Pending], Beta Gamma Globulin [Pending], PEP Abnormal Protein Bands [Pending], Protein Electrophoresis Interpret [Pending], Vitamin B12 Level 828, Folate 43.0, Thyroid Stimulating Hormone (TSH) 0.668, PTH (Intact) Whole Molecule Comment, Parathyroid Hormone (Intact) 11L, Immunoglobulin G [Pending], Immunoglobulin A [Pending], Immunoglobulin M [Pending], Immunofixation Screen [Pending] 07/26/20 01:57: POC Whole Blood Glucose 146H 07/26/20 06:15: White Blood Count 5.7, Red Blood Count 3.48L, Hemoglobin 10.8L, Hematocrit 32.6L , Mean Corpuscular Volume 94, Mean Corpuscular Hemoglobin 31.1H, Mean Corpuscular Hemoglobin Concent 33.1, Red Cell Distribution Width 14.3, Platelet Count 202, Mean Platelet Volume 6.8, Neutrophils (%) (Auto) 73.7, Lymphocytes (%) (Auto) 22.1, Monocytes (%) (Auto) 3.6, Eosinophils (%) (Auto) 0.0, Basophils (%) (Auto) 0.6, Sodium Level 135L, Potassium Level 4.4, Chloride Level 103, Carbon Dioxide Level 27, Anion Gap 5, Blood Urea Nitrogen 21H, Creatinine 1.3, Estimat Glomerular Filtration Rate > 60, Glucose Level 114H, Calcium Level 12.2H , Ionized Calcium (Measured) [Pending], Phosphorus Level 2.6, Magnesium Level 1.5L, Vitamin D 25-Hydroxy [Pending], 25-Hydroxy Vitamin D2 [Pending], 25- Hydroxy Vitamin D3 [Pending] Height (Feet): 5 Height (Inches): 9.00 Weight (Pounds): 176 General Appearance: no apparent distress, confused EENT: PERRL/EOMI Neck: non-tender, supple Cardiovascular: normal rate, regular rhythm, no JVD Respiratory/Chest: lungs clear, normal breath sounds, respiratory distress Abdomen: normal bowel sounds, non tender, soft Extremities: normal range of motion, non-tender Edema: no edema noted Arm (L), no edema noted Arm (R), no edema noted Leg (L), no edema noted Leg (R), no edema noted Pedal (L), no edema noted Pedal (R), no edema noted Generalized 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 Blum is a 79M with PMH of Dementia, COPD, and HTN who presents from [facility] for chest pain, weakness. 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 # Pulmonary HTN likely Class 3 # Hypercalcemia 2/2 ?Malignancy (MM) vs vs paraneoplastic syndrome ( squamous cell cancer) vs PHPTH # New vs Chronic HFpEF 2/2 ischemic vs non-ischemic vs tachyarrhythmia induced cardiomyopathy - compensated # Chronic Respiratory Failure on home O2 # Normocytic Anemia 2/2 ACD vs DEYANIRA # Hx of COPD # Hx of Dementia # ?Parkinson's related dementia # Essential HTN P: - hemodynamically stable - on 4L NC, Keep O2 > 88% - duonebs prn - CTA: neg PE; large 7 x 6.5 x 7 cm right lung mass w/ mediastinal lymphadenopathy; unsure if patient aware as he is poor historian - scheduled for CT guided biopsy; patient does not have capacity or POA or any contacts. This procedure is required in the best interest of the patient as a diagnosis is required to assess this lung mass w/ lymphadenopathy. Without biopsy we will be unable to manage his issues with the best care. - ECHO: EF 60%, mild diastolic dysfunction, RSVP 65 - ekg: afib w/o RVR - CHADVASC: 4 - Has-bled: 2 - keep K > 4, Mg > 2 - metoprolol 25 mg BID, defer anticoags to cardio - monitor renal function - PTH low > indicating secondary causes of hypercalcemia likely malignancy - s/p Pamidronate - aggressive IVF - TSH, Folic acid, B12 WNL - f/u SPEP, Immunofixation, LDH, B2 microglobulin - consult Dr. Chester, Pulm, recs appreciated - consult Dr. Otero, Cardio, recs appreciated - consult Dr. Laura, Heme/onc, recs appreciated - CM/SW - for POA and medical decision making, patient with no family in records and apparently came from home. He likely has lung cancer 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 and advanced Parkinson's, will need to know who is making medical decisions for patient as he has zero capacity at this time. CODE: Full Diet: Cardio GI: none DVT: Heparin 5000U BID Dispo: pending cardiology evaluation, work up of lung mass and possible malignancies, and SW for POA and medical decision making Time spent on this encounter was 35 minutes which included 25 minutes of counseling and care coordination. I discussed with the nurse at bedside. Time of note may not reflect time patient was seen. Indio Gunn D.O Jul 26, 2020 09:34
[2020-07-26] MEDS ORDERED: Pamidronate Disodium Inj 60 MG in Sodium Chloride 550 ML IVPB ONE (10:00)
--- NOTE | 2020-07-26 10:20 | Pulmonology Progress Note ---
Subjective ROS Limited/Unobtainable: Yes - altered, unable to answer any question appropriately Interval Events: Awake and comfortable Constitutional: Reports: no symptoms HEENT: Repors: no symptoms Respiratory: Reports: no symptoms Cardiovascular: Reports: no symptoms Gastrointestinal/Abdominal: Reports: no symptoms Genitourinary: Reports: no symptoms Allergies: Coded Allergies: No Known Allergies (Unverified , 07/24/20) Objective Last 24 Hour Vital Signs Date Time Temp Pulse Resp B/P (MAP) Pulse Ox O2 Delivery O2 Flow Rate FiO2 07/26/20 09:27 70 124/67 07/26/20 04:00 69 07/26/20 04:00 96.8 72 24 126/67 (86) 97 07/26/20 00:00 68 07/26/20 00:00 96.7 79 22 157/93 (114) 100 07/25/20 21:52 81 135/63 07/25/20 21:00 Nasal Cannula 2.0 07/25/20 20:00 96.3 81 22 135/63 (87) 92 07/25/20 20:00 64 07/25/20 16:09 97.5 07/25/20 16:00 97.5 67 20 127/80 (96) 98 07/25/20 16:00 82 07/25/20 12:00 97.5 65 20 134/78 (96) 98 07/25/20 12:00 82 Intake and Output 07/25/20 07/26/20 18:59 06:59 Intake Total 520 ml Output Total 1750 ml 250 ml Balance -1230 ml -250 ml Intake Oral 120 ml IV Total 400 ml Output Urine Total 1750 ml 250 ml # Voids 1 General Appearance: no acute distress HEENT: normocephalic Respiratory: chest wall non-tender, decreased breath sounds Cardiovascular: normal peripheral pulses, normal rate Abdomen: normal bowel sounds Extremities: no cyanosis Microbiology Date/Time Source Procedure Growth Status 07/24/20 10:25 Nasopharynx SARS-CoV-2 RdRp Gene Assay - Final Complete Laboratory Tests 07/25/20 14:20: Calcium (Send out) 12.3H, Iron Level 33L, Total Iron Binding Capacity 150L, Percent Iron Saturation 22, Unsaturated Iron Binding 117, Ferritin 1120H, Lactate Dehydrogenase 200, Total Protein (PEP) [Pending], Albumin (PEP) [Pending], Globulin (PEP) [Pending], Albumin/Globulin Ratio [Pending], Aobqz-5-Pckhcqgan [Pending], Ascks-1-Oeqpqpksx [Pending], Beta Globulins [Pending], Njgg-9-Ajxkstkiccdau [Pending], Beta Gamma Globulin [Pending], PEP Abnormal Protein Bands [Pending], Protein Electrophoresis Interpret [Pending], Vitamin B12 Level 828, Folate 43.0, Thyroid Stimulating Hormone (TSH) 0.668, PTH (Intact) Whole Molecule Comment, Parathyroid Hormone (Intact) 11L, Immunoglobulin G [Pending], Immunoglobulin A [Pending], Immunoglobulin M [Pending], Immunofixation Screen [Pending] 07/26/20 01:57: POC Whole Blood Glucose 146H 07/26/20 06:15: White Blood Count 5.7, Red Blood Count 3.48L, Hemoglobin 10.8L, Hematocrit 32.6L , Mean Corpuscular Volume 94, Mean Corpuscular Hemoglobin 31.1H, Mean Corpuscular Hemoglobin Concent 33.1, Red Cell Distribution Width 14.3, Platelet Count 202, Mean Platelet Volume 6.8, Neutrophils (%) (Auto) 73.7, Lymphocytes (%) (Auto) 22.1, Monocytes (%) (Auto) 3.6, Eosinophils (%) (Auto) 0.0, Basophils (%) (Auto) 0.6, Sodium Level 135L, Potassium Level 4.4, Chloride Level 103, Carbon Dioxide Level 27, Anion Gap 5, Blood Urea Nitrogen 21H, Creatinine 1.3, Estimat Glomerular Filtration Rate > 60, Glucose Level 114H, Calcium Level 12.2H , Ionized Calcium (Measured) [Pending], Phosphorus Level 2.6, Magnesium Level 1.5L, Vitamin D 25-Hydroxy [Pending], 25-Hydroxy Vitamin D2 [Pending], 25- Hydroxy Vitamin D3 [Pending] Current Medications Medications (Trade) Dose Ordered Sig/Jordan Route PRN Reason Start Time Stop Time Status Last Admin Dose Admin Acetaminophen (Tylenol) 650 mg Q4H PRN ORAL Mild Pain (Pain Scale 1-3) 07/24/20 22:00 08/23/20 21:59 Acetaminophen/ Hydrocodone Bitart (Canaan 5/325) 1 tab Q4H PRN ORAL Moderate Pain (Pain Scale 4-6) 07/24/20 22:00 07/31/20 21:59 Albuterol/ Ipratropium (Albuterol/ Ipratropium) 3 ml Q4H PRN HHN Shortness of Breath 07/25/20 13:15 07/30/20 13:14 Aspirin (ASA) 81 mg DAILY ORAL 07/25/20 09:00 09/08/20 08:59 07/26/20 09:27 Atorvastatin Calcium (Lipitor) 80 mg BEDTIME ORAL 07/25/20 21:00 10/23/20 20:59 07/25/20 21:52 Dexamethasone Sodium Phosphate (Decadron 4mg/ml vial) 4 mg Q6HR IVP 07/25/20 12:00 10/23/20 11:59 07/26/20 06:00 Heparin Sodium (Porcine) (Heparin 5000 units/ml) 5,000 units EVERY 12 HOURS SUBQ 07/25/20 21:00 09/08/20 20:59 Hydralazine HCl (Apresoline) 25 mg Q6HR PRN ORAL For High Blood Pressure >170 07/25/20 12:45 10/23/20 12:44 Iohexol (OMNIPAQUE-300 100ml) 100 ml NOW PRN INJ Radiology Procedure 07/24/20 10:30 07/26/20 10:29 Iohexol (Omnipaque 350 100ml) 100 ml NOW PRN INJ Radiology Procedure 07/24/20 10:30 07/26/20 10:29 Lidocaine HCl (Xylocaine 1% 30ml) 30 ml NOW PRN INJ Radiology Procedure 07/25/20 12:00 07/28/20 11:59 Lorazepam (Ativan) 0.5 mg Q4H PRN ORAL For Anxiety 07/26/20 06:45 08/02/20 06:44 Metoprolol Tartrate (Lopressor) 25 mg Q12HR ORAL 07/25/20 21:00 10/23/20 20:59 07/26/20 09:27 Morphine Sulfate (Morphine Sulfate) 4 mg Q4H PRN IVP Severe Pain (Pain Scale 7-10) 07/24/20 22:00 07/31/20 21:59 07/25/20 15:39 Ondansetron HCl (Zofran) 4 mg Q4H PRN IVP Nausea & Vomiting 07/24/20 22:00 08/23/20 21:59 Pamidronate Disodium 60 mg/ Sodium Chloride 550 ml @ 137.5 mls/ hr ONCE ONCE IVPB 07/26/20 10:00 07/26/20 13:59 Sodium Chloride 1,000 ml @ 150 mls/hr Q6H40M IV 07/24/20 23:00 08/23/20 22:59 07/26/20 02:28 Assessment/Plan Assessment/Plan IMPRESSION: 1. Hypercalcemia, suspect secondary to malignancy. 2. Lung mass. 3. Emphysema. 4. Hypertension. DISCUSSION: Continue IV fluid hydration. Await CT-guided lung biopsy. Continue Decadron I attest that a lung biopsy is necessary to diagnose and potentially treat a life-threatening process (lung cancer possibly) No next of kin available Oly Lara Omar Syed MD Jul 26, 2020 10:20
--- NOTE | 2020-07-26 10:34 | NUR ---
CHANNEL SALES MANAGER NOTE SW spoke w/ Rosalina Blum [phone] that pt does not have POA/children. Per Rosalina Blum, she would not be able to provide any consent for pt. Rosalina encouraged this SW to contact her brother, Yusuf Blum [phone], if he does not answer, call other sister, Homer Esteves home:[phone]/cell:[phone]. VICKEY attempted to call all numbers above 2x and left voicemail for call back.
--- NOTE | 2020-07-26 11:00 | NUR ---
NURSES NOTES: Spoke to Dr. Chester regarding radiology refusing to do biopsy because family has not returned any calls and they are saying it not medically urgent. Dr. Chester called radiology himself.
--- NOTE | 2020-07-26 11:18 | NUR ---
NURSES NOTES: Tried calling Yusuf Blum and Homer Esteves regarding consent for a lung biopsy that was ordered. Voicemail left on all numbers that were provided by VICKEY. Awaiting a callback.
--- NOTE | 2020-07-26 12:23 | NUR ---
SUPERVISOR CARPENTERS NOTE SW received a return call from pt's brother, Yusuf Blum cell#[phone] and obtained consent for lung biopsy. Pt's brother is willing to provide consent for pt in the future. Assigned RN was notified of this consent.
--- NOTE | 2020-07-26 12:31 | NUR ---
CASE MANAGEMENT:REVIEW 07/26/20 SI: ATYPICAL CHEST PAIN. PAFIB. PULM MASS DEMENTIA. PARKINSON'S 97.9 68 18 132/57 97% ON RA H/H-10.8/32.6 NA-135 BUN+21 MAG-1.5 IS: IV AREDIA X1 IVF@150/HR IV DECADRON Q6HRS HEPARIN SQ Q12 LOPRESSOR PO Q12 LIPITOR PO QHS ASA PO QD : TELEMETRY STATUS DCP: FROM HOME ALONE PLAN: CT GUIDED LUNG BIOPSY PATIENT IS CONFUSED ~ BROTHER WAS CONTACTED FOR CONSENT WILL NEED SNF PLACEMENT UPON DISCHARGE ~ AMBULATING 25 FT
--- NOTE | 2020-07-26 13:20 | Nephrology Progress Note ---
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 # Pulmonary HTN likely Class 3 # Hypercalcemia 2/2 ?Malignancy (MM) vs vs paraneoplastic syndrome ( squamous cell cancer) vs PHPTH # ?Chronic HFpEF 2/2 ischemic vs non-ischemic vs tachyarrhythmia induced cardiomyopathy - compensated # ?Chronic Respiratory Acidosis on home O2 # Normocytic Anemia 2/2 ACD vs DEYANIRA # Hx of COPD # Hx of Dementia # ?Parkinson's related dementia # Essential HTN - monitor free calcium - pamindronate 60 today - will give NS + lasix - pulm eval - surg eval - monitor calcium level - continue with steroids - check echo - monitor BP - avoid nephrotoxins Subjective ROS Limited/Unobtainable: No Constitutional: Reports: weakness HEENT: Denies: no symptoms, eye pain, blurred vision, tearing, double vision, ear pain, ear discharge, nose pain, nose congestion, throat pain, throat swelling, mouth pain, mouth swelling, other Neurologic/Psychiatric: Denies: no symptoms, anxiety, depressed, emotional problems, headache, numbness, paresthesia, pre-existing deficit, seizure, tingli ng, tremors, weakness, other Subjective intermittently agitated and combative continues to have tremors Will add sinemet Objective Objective Last 24 Hour Vital Signs Date Time Temp Pulse Resp B/P (MAP) Pulse Ox O2 Delivery O2 Flow Rate FiO2 07/26/20 12:00 70 07/26/20 12:00 96.6 75 20 120/98 (105) 97 07/26/20 09:27 70 124/67 07/26/20 09:00 Nasal Cannula 2.0 07/26/20 08:00 88 07/26/20 08:00 96.6 60 22 141/56 (84) 92 07/26/20 04:00 69 07/26/20 04:00 96.8 72 24 126/67 (86) 97 07/26/20 00:00 68 07/26/20 00:00 96.7 79 22 157/93 (114) 100 07/25/20 21:52 81 135/63 07/25/20 21:00 Nasal Cannula 2.0 07/25/20 20:00 96.3 81 22 135/63 (87) 92 07/25/20 20:00 64 07/25/20 16:09 97.5 07/25/20 16:00 97.5 67 20 127/80 (96) 98 07/25/20 16:00 82 Intake and Output 07/25/20 07/26/20 19:00 07:00 Intake Total 520 ml Output Total 1750 ml 250 ml Balance -1230 ml -250 ml Intake Oral 120 ml IV Total 400 ml Output Urine Total 1750 ml 250 ml # Voids 1 Laboratory Tests 07/25/20 14:20: Calcium (Send out) 12.3H, Iron Level 33L, Total Iron Binding Capacity 150L, Percent Iron Saturation 22, Unsaturated Iron Binding 117, Ferritin 1120H, Lactate Dehydrogenase 200, Total Protein (PEP) [Pending], Albumin (PEP) [Pending], Globulin (PEP) [Pending], Albumin/Globulin Ratio [Pending], Wvpin-0-Dhwapjrcy [Pending], Evhfs-6-Smphwyhmc [Pending], Beta Globulins [Pending], Drbq-2-Pthjyezhxssfk [Pending], Beta Gamma Globulin [Pending], PEP Abnormal Protein Bands [Pending], Protein Electrophoresis Interpret [Pending], Vitamin B12 Level 828, Folate 43.0, Thyroid Stimulating Hormone (TSH) 0.668, PTH (Intact) Whole Molecule Comment, Parathyroid Hormone (Intact) 11L, Immunoglobulin G [Pending], Immunoglobulin A [Pending], Immunoglobulin M [Pending], Immunofixation Screen [Pending] 07/26/20 01:57: POC Whole Blood Glucose 146H 07/26/20 06:15: White Blood Count 5.7, Red Blood Count 3.48L, Hemoglobin 10.8L, Hematocrit 32.6L , Mean Corpuscular Volume 94, Mean Corpuscular Hemoglobin 31.1H, Mean Corpus cular Hemoglobin Concent 33.1, Red Cell Distribution Width 14.3, Platelet Count 202, Mean Platelet Volume 6.8, Neutrophils (%) (Auto) 73.7, Lymphocytes (%) (Auto) 22.1, Monocytes (%) (Auto) 3.6, Eosinophils (%) (Auto) 0.0, Basophils (%) (Auto) 0.6, Sodium Level 135L, Potassium Level 4.4, Chloride Level 103, Carbon Dioxide Level 27, Anion Gap 5, Blood Urea Nitrogen 21H, Creatinine 1.3, Estimat Glomerular Filtration Rate > 60, Glucose Level 114H, Calcium Level 12.2H, Ionized Calcium (Measured) 1.59H, Phosphorus Level 2.6, Magnesium Level 1.5L, Vitamin D 25-Hydroxy [Pending], 25-Hydroxy Vitamin D2 [Pending], 25-Hydroxy Vitamin D3 [Pending] Height (Feet): 5 Height (Inches): 9.00 Weight (Pounds): 176 General Appearance: no apparent distress EENT: PERRL/EOMI Neck: non-tender Cardiovascular: normal rate, regular rhythm, regularly irregular Respiratory/Chest: chest wall non-tender Abdomen: normal bowel sounds, non tender, soft Extremities: non-tender Terence Garcia M.D. Jul 26, 2020 13:20
[2020-07-26] MEDS: Haloperidol 5mg/ml Inj IM PRN ×2 (14:46→21:11)
--- NOTE | 2020-07-26 15:59 | NUR ---
P.T Note: Skilled P.T services not performed despite attempts due to pt being uncooperative and resistive. RN present/aware during attempt.
--- NOTE | 2020-07-26 16:19 | Surgery Progress Note ---
Surgery Progress Note Subjective Additional Comments labs noted exam stable pending ct biopsy Objective Last 24 Hour Vital Signs Date Time Temp Pulse Resp B/P (MAP) Pulse Ox O2 Delivery O2 Flow Rate FiO2 07/26/20 15:24 88 20 142/75 (97) 98 07/26/20 15:19 85 18 129/72 (91) 98 07/26/20 15:14 89 18 138/72 (94) 99 07/26/20 14:39 82 2.0 07/26/20 12:00 70 07/26/20 12:00 96.6 75 20 120/98 (105) 97 07/26/20 09:27 70 124/67 07/26/20 09:00 Nasal Cannula 2.0 07/26/20 08:00 88 07/26/20 08:00 96.6 60 22 141/56 (84) 92 07/26/20 04:00 69 07/26/20 04:00 96.8 72 24 126/67 (86) 97 07/26/20 00:00 68 07/26/20 00:00 96.7 79 22 157/93 (114) 100 07/25/20 21:52 81 135/63 07/25/20 21:00 Nasal Cannula 2.0 07/25/20 20:00 96.3 81 22 135/63 (87) 92 07/25/20 20:00 64 I&O Intake and Output 07/25/20 07/26/20 19:00 07:00 Intake Total 520 ml Output Total 1750 ml 250 ml Balance -1230 ml -250 ml Intake Oral 120 ml IV Total 400 ml Output Urine Total 1750 ml 250 ml # Voids 1 Dressing: saturated Cardiovascular: RSR Respiratory: decreased breath sounds Abdomen: non-tender, present bowel sounds Extremities: no tenderness, no cyanosis Laboratory Tests Test 07/26/20 01:57 07/26/20 06:15 POC Whole Blood Glucose 146 MG/DL (74-106) H White Blood Count 5.7 K/UL (4.8-10.8) Red Blood Count 3.48 M/UL (4.70-6.10) L Hemoglobin 10.8 G/DL (14.2-18.0) L Hematocrit 32.6 % (42.0-52.0) L Mean Corpuscular Volume 94 FL (80-99) Mean Corpuscular Hemoglobin 31.1 PG (27.0-31.0) H Mean Corpuscular Hemoglobin Concent 33.1 G/DL (32.0-36.0) Red Cell Distribution Width 14.3 % (11.6-14.8) Platelet Count 202 K/UL (150-450) Mean Platelet Volume 6.8 FL (6.5-10.1) Neutrophils (%) (Auto) 73.7 % (45.0-75.0) Lymphocytes (%) (Auto) 22.1 % (20.0-45.0) Monocytes (%) (Auto) 3.6 % (1.0-10.0) Eosinophils (%) (Auto) 0.0 % (0.0-3.0) Basophils (%) (Auto) 0.6 % (0.0-2.0) Sodium Level 135 MMOL/L (136-145) L Potassium Level 4.4 MMOL/L (3.5-5.1) Chloride Level 103 MMOL/L (98-107) Carbon Dioxide Level 27 MMOL/L (21-32) Anion Gap 5 mmol/L (5-15) Blood Urea Nitrogen 21 mg/dL (7-18) H Creatinine 1.3 MG/DL (0.55-1.30) Estimat Glomerular Filtration Rate > 60 mL/min (>60) Glucose Level 114 MG/DL (74-106) H Calcium Level 12.2 MG/DL (8.5-10.1) H Ionized Calcium (Measured) 1.59 mmol/L (1.10-1.35) H Phosphorus Level 2.6 MG/DL (2.5-4.9) Magnesium Level 1.5 MG/DL (1.8-2.4) L Vitamin D 25-Hydroxy Pending 25-Hydroxy Vitamin D2 Pending 25-Hydroxy Vitamin D3 Pending Plan Problems: (1) Abdominal pain (2) Lung mass Assessment & Plan: ct guided biopsy pending path likely neoplasm The pulmonary arteries are well-opacified. No intraluminal filling defects or other findings to suggest acute pulmonary embolus are evident. The main pulmonary artery is dilated, measuring 4.3 cm in diameter, and the right and left pulmonary arteries are also dilated. The ascending thoracic aorta is ectatic although not frankly aneurysmal, measuring up to 4.3 cm in diameter. There is a mass in the right upper lobe. This demonstrates peripheral enhancement, central attenuations just above necrosis. This measures 7 x 6.5 x 7 cm. There is right hilar adenopathy, with multiple nodes in the right hilum, largest measuring 4 cm in diameter, also demonstrating some central low-attenuation. There is also mediastinal lymphadenopathy, the largest precarinal node measuring 3.7 cm long axis dimension. The lymphadenopathy results in mild narrowing of some of the segmental pulmonary arteries. The lungs are hyperinflated. There is centrilobular emphysema and bilateral bullous changes, the latter predominantly in the upper lobes but with also considerable mostly interstitial bullae in the lower lobes. Areas of scarring are demonstrated bilaterally. There is a small left pleural effusion No infiltrates are demonstrated. The heart size is normal. There is a pericardial effusion mostly anteriorly which measures up to 11 mm in thickness. The included thyroid is unremarkable. There is bilateral gynecomastia. There is diffuse mild edema of the subcutaneous fat. Please refer to report of abdominal pelvic CT performed the same time for findings in the upper abdomen. Impression: Negative for evidence of acute pulmonary embolus or other acute pulmonary pathology. 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 Pericardial effusion Incidental finding of bilateral gynecomastia Evidence of mild anasarca, with diffuse edema of the subcutaneous fat. (3) Chest pain Pedro Burton Jul 26, 2020 16:19
[2020-07-26] MEDS ORDERED: Tubing IV Secondary IV ONE (16:34)
[2020-07-26] MEDS ORDERED: NS 275ml ONE (16:34)
--- NOTE | 2020-07-26 16:43 | NUR ---
PAINTINGS CONSERVATOR NOTE CALL RECEIVED FROM [facility] [phone] [facility], ANY ORDERS FOR DC PLANNING AND SNF PLACEMENT TO BE FAXED TO [phone]
--- NOTE | 2020-07-26 17:12 | Brief Operative Note ---
Immediate Post Operative Note Operative Note Pre-op Diagnosis: Lung mass Procedure: Lung bx Post-op Diagnosis: same as pre-op Surgeon: Brian Friedman Anesthesia: local Specimen: none Complications: none Fluids: none Implant(s) used?: No Joseph Friedman MD Jul 26, 2020 17:12
[2020-07-26] MEDS: Levodopa/Carbidopa 10/100 tab ORAL SCH (17:13)
--- NOTE | 2020-07-26 18:09 | Diagnostic Imaging Report ---
Indication: Post lung biopsy Technique: One view of the chest Comparison: 07/25/2020 Findings: No pneumothorax, status post lung biopsy. Large right lung mass is again demonstrated. Interstitial changes are stable. Impression: No evidence of postbiopsy pneumothorax.
--- NOTE | 2020-07-26 18:20 | Diagnostic Imaging Report ---
Indication: Right lung mass Technique: Prior imaging studies reviewed. Emergency physician consent was on the chart, improved mild risk management. Procedural timeout performed. Localizing spiral acquisitions obtained through the chest. Intended puncture site was marked, sterilely prepped and draped. Local anesthesia with 1% lidocaine. Under CT visualization, a 17-gauge guide needle was advanced into the periphery of the target lesion. Total 3 needle passes then made using coaxially inserted 18-gauge automated biopsy gun. Specimens placed in formalin, submitted to pathology. Follow-up CT images demonstrated a small amount of air within the target lesion, and a small superficial hematoma at the puncture site. The patient otherwise tolerated the procedure well, without immediate complication. Total dose length product 900 mGycm. CTDIvol(s) 4, 6.7 x 9 mGy. Radiation dose was minimized using automated exposure control Comparison: none Findings: Intraoperative images document successful needle placement into the target lesion. Final images demonstrate small superficial hematoma at the puncture site Impression: Apparently successful right lung mass biopsy, as described. Final pathology pending The CT scanner at [facility] is accredited by the [employer] and the scans are performed using protocols designed to limit radiation exposure to as low as reasonably achievable to attain images of sufficient resolution adequate for diagnostic evaluation.
--- NOTE | 2020-07-26 19:05 | NUR ---
NURSE HAND-OFF REPORT: Important Events on Shift: Luing biospy done and awaiting results. 3gm Mag given. along with 60mg of Aremida for elevated calcium Patient Status: Stable but has bad sundowners Diet: Cardiac Pending Orders: Pending Results/Labs: Pending MD notification: Latest Vital Signs: Temperature 98.0 , Pulse 86 , B/P 142 /75 , Respiratory Rate 20 , O2 SAT 98 , Nasal Cannula, O2 Flow Rate 2.0 . Vital Sign Comment: EKG Rhythm: SR with 1 AVB Rhythm change?: N Notified?: Stefania Garcia MD Response: Latest Knox Fall Score: 75 Fall Risk: High Risk Safety Measures: Call light Within Reach, Bed Alarm Zone 1, Side Rails Side Rails x2, Bed position Low and Locked. Fall Precautions: Yellow Socks Yellow Gown Door Sign Patient Fall Education Report given to win.
--- NOTE | 2020-07-26 19:10 | NUR ---
NURSE NOTES: Patient received from DC Ferrer. Patient is A/O x 1. Patient is confused and tries to get out of bed. Patient also tries to stand up but appears to be weak. Needs to be assisted. Patient has 20 gauge IV on his left hand. Patient is on 2 L nasal cannula satting at 95% with no respiratory distress noted. Patient's bed is in the lowest position and locked, call light within reach. Will continue to monitor.
[2020-07-26] MEDS: Atorvastatin 80mg tab ORAL SCH (21:28)
--- NOTE | 2020-07-26 23:43 | Psychiatric Progress Note ---
Psychiatry Progress Note Psychiatry Progress Note Medications Current Medications Medications (Trade) Dose Ordered Sig/Jordan Route PRN Reason Start Time Stop Time Status Last Admin Dose Admin Acetaminophen (Tylenol) 650 mg Q4H PRN ORAL Mild Pain (Pain Scale 1-3) 07/24/20 22:00 08/23/20 21:59 Acetaminophen/ Hydrocodone Bitart ([place] 5/325) 1 tab Q4H PRN ORAL Moderate Pain (Pain Scale 4-6) 07/24/20 22:00 07/31/20 21:59 Albuterol/ Ipratropium (Albuterol/ Ipratropium) 3 ml Q4H PRN HHN Shortness of Breath 07/25/20 13:15 07/30/20 13:14 Aspirin (ASA) 81 mg DAILY ORAL 07/25/20 09:00 09/08/20 08:59 07/26/20 09:27 Atorvastatin Calcium (Lipitor) 80 mg BEDTIME ORAL 07/25/20 21:00 10/23/20 20:59 07/26/20 21:28 Carbidopa/Levodopa (Sinemet 10/100) 1 tab THREE TIMES A DAY ORAL 07/26/20 18:00 08/25/20 17:59 07/26/20 17:13 Dexamethasone Sodium Phosphate (Decadron 4mg/ml vial) 4 mg Q6HR IVP 07/25/20 12:00 10/23/20 11:59 07/26/20 17:13 Haloperidol Lactate (Haldol) 5 mg Q6H PRN IM Agitation 07/26/20 13:30 09/09/20 13:29 07/26/20 21:11 Heparin Sodium (Porcine) (Heparin 5000 units/ml) 5,000 units EVERY 12 HOURS SUBQ 07/25/20 21:00 09/08/20 20:59 07/26/20 21:30 Hydralazine HCl (Apresoline) 25 mg Q6HR PRN ORAL For High Blood Pressure >170 07/25/20 12:45 10/23/20 12:44 Lidocaine HCl (Xylocaine 1% 30ml) 30 ml NOW PRN INJ Radiology Procedure 07/25/20 12:00 07/28/20 11:59 Metoprolol Tartrate (Lopressor) 25 mg Q12HR ORAL 07/25/20 21:00 10/23/20 20:59 07/26/20 21:29 Morphine Sulfate (Morphine Sulfate) 4 mg Q4H PRN IVP Severe Pain (Pain Scale 7-10) 07/24/20 22:00 07/31/20 21:59 07/25/20 15:39 Ondansetron HCl (Zofran) 4 mg Q4H PRN IVP Nausea & Vomiting 07/24/20 22:00 08/23/20 21:59 Quetiapine Fumarate (SEROqueL) 50 mg BEDTIME ORAL 07/26/20 21:00 09/09/20 20:59 07/26/20 21:28 Sodium Chloride 1,000 ml @ 150 mls/hr Q6H40M IV 07/24/20 23:00 08/23/20 22:59 07/26/20 17:13 Allergies: Coded Allergies: No Known Allergies (Unverified , 07/24/20) Objective Data Height (Feet): 5 Height (Inches): 9.00 Weight (Pounds): 176 General Appearance: no apparent distress, confused Froilan Lee MD Jul 26, 2020 23:43
[2020-07-27] VITALS (8 sets, daily range): BP systolic 121–159; BP diastolic 75–86
--- NOTE | 2020-07-27 03:45 | Consultation ---
DATE OF CONSULTATION: 07/26/2020 CONSULTING PHYSICIAN: Froilan Lee MD HISTORY OF PRESENT ILLNESS: This is a 79-year-old male with a history of multiple medical issues who has been admitted to the hospital for medical stabilization. The patient has a history of dementia, emphysema, and chronic who is presenting with waxing and waning consciousness and agitation. He is attempting to come out of the bed and pulling out lines. He is not able to be engaged during the evaluation. PAST PSYCHIATRIC HISTORY: Significant for dementia. PAST MEDICAL HISTORY: Significant for emphysema. ALLERGIES: No known drug allergies. SUBSTANCE ABUSE HISTORY: No known history of illicit drugs or alcohol. MENTAL STATUS EXAMINATION: The patient is awake, oriented to self only, confused, disoriented. Mood is agitated. Affect is flat. Thought process, there is a paucity of thought content. Thought content, no suicidal or homicidal ideation. Cognition is impaired. Insight and judgment, impaired. ASSESSMENT: [place] I Dementia with behavior disturbance. Acute toxic encephalopathy. [place] II Deferred. [place] III Emphysema. [place] IV Low. [place] V 20. PLAN: 1. Seroquel 25 mg at bedtime. 2. Discussed with the nurse and primary physician. Froilan Lee M.D. DR: ANDIE JOB#: [id number] CC:
[2020-07-27] MEDS: Haloperidol 5mg/ml Inj IM PRN ×2 (05:05→15:18)
--- NOTE | 2020-07-27 07:10 | NUR ---
NURSES NOTES: Pt received from DC Pitts. Pt is resting in bed and denies pain. Pt is A/Ox1and sleep. Pt is on cardiac monitoring SR. Pt is on NC 2LPM and SATing @ 97%. Pt continues to get out of bed. Education given but unable to comprehend. Bed is locked in lowest position with call light within reach. Will continue to monitor.
--- NOTE | 2020-07-27 07:15 | NUR ---
NURSE HAND-OFF REPORT: Important Events on Shift:[Patient has been trying to get up and take out his IV line. Patient confused, weak gait] Patient Status: [Stable] Diet: [] Pending Orders: [] Pending Results/Labs:[] Pending MD notification:[] Latest Vital Signs: Temperature 98.8 , Pulse 87 , B/P 121 /75 , Respiratory Rate 20 , O2 SAT 100 , Nasal Cannula, O2 Flow Rate 2.0 . Vital Sign Comment: [] EKG Rhythm: SR w/ PAC, 1st degree AV block Rhythm change?: Y Notified?: N -Dr. Radha ANDERSON Response: Latest Knox Fall Score: 75 Fall Risk: High Risk Safety Measures: Call light Within Reach, Bed Alarm Zone 1, Side Rails Side Rails x3, Bed position Low and Locked. Fall Precautions: Yellow Socks Yellow Gown Door Sign Patient Fall Education Report given to [DC Ferrer].
--- NOTE | 2020-07-27 08:53 | General Progress Note ---
Subjective ROS Limited/Unobtainable: Yes - altered, encephalopathic Allergies: Coded Allergies: No Known Allergies (Unverified , 07/24/20) Subjective no acute events overnight. Patient per nurse. CT guided biopsy completed yesterday. Labs not drawn yet. Objective Last 24 Hour Vital Signs Date Time Temp Pulse Resp B/P (MAP) Pulse Ox O2 Delivery O2 Flow Rate FiO2 07/27/20 04:00 98.8 87 20 121/75 (90) 100 07/27/20 04:00 63 07/27/20 00:00 97.9 92 18 138/75 (96) 100 07/27/20 00:00 108 07/26/20 21:29 89 151/65 07/26/20 21:00 Nasal Cannula 2.0 07/26/20 20:00 97.9 89 16 151/65 (93) 98 07/26/20 20:00 82 07/26/20 16:00 86 07/26/20 15:24 88 20 142/75 (97) 98 07/26/20 15:19 85 18 129/72 (91) 98 07/26/20 15:14 89 18 138/72 (94) 99 07/26/20 14:39 82 2.0 07/26/20 12:00 70 07/26/20 12:00 96.6 75 20 120/98 (105) 97 07/26/20 09:27 70 124/67 07/26/20 09:00 Nasal Cannula 2.0 Intake and Output 07/26/20 07/27/20 19:00 07:00 Intake Total 120 ml Balance 120 ml Intake Oral 120 ml # Voids 2 Height (Feet): 5 Height (Inches): 9.00 Weight (Pounds): 176 General Appearance: confused, other - resting full body tremors EENT: PERRL/EOMI Neck: non-tender, normal inspection Cardiovascular: normal rate, regular rhythm, no JVD Respiratory/Chest: lungs clear, normal breath sounds, respiratory distress Abdomen: normal bowel sounds, non tender, soft Extremities: normal range of motion Edema: no edema noted Arm (L), no edema noted Arm (R), no edema noted Leg (L), no edema noted Leg (R), no edema noted Pedal (L), no edema noted Pedal (R), no edema noted Generalized Neurologic: deputy attorney general II-XII grossly normal, alert, disoriented Skin: normal pigmentation, warm/dry Assessment/Plan Assessment/Plan: Mr. Blum is a 79M with PMH of Dementia, COPD, and HTN who presents from [facility] for chest pain, weakness. 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 # Pulmonary HTN likely Class 3 # Hypercalcemia 2/2 Malignancy (MM) vs vs paraneoplastic syndrome ( squamous cell cancer) # New vs Chronic HFpEF 2/2 ischemic vs non-ischemic vs tachyarrhythmia induced cardiomyopathy - compensated # Chronic Respiratory Failure on home O2 # Normocytic Anemia 2/2 ACD vs DEYANIRA # Hx of COPD # Hx of Dementia # ?Parkinson's related dementia # Essential HTN P: - hemodynamically stable - on 2L NC, Keep O2 > 88% - duonebs prn - CTA: neg PE; large 7 x 6.5 x 7 cm right lung mass w/ mediastinal lymphadenopathy; unsure if patient aware as he is poor historian - f/u Biopsy results - outpatient PET per heme/onc - ECHO: EF 60%, mild diastolic dysfunction, RSVP 65 - ekg: afib w/o RVR - CHADVASC: 4 - Has-bled: 2 - keep K > 4, Mg > 2 - metoprolol 25 mg BID, defer anticoags to cardio - monitor renal function - s/p Pamidronate - aggressive IVF - s/p lasix 40 once - trend Calcium - f/u SPEP, Immunofixation, LDH, B2 microglobulin - consult Dr. Chester, Pulm, recs appreciated - consult Dr. Otero, Cardio, recs appreciated - consult Dr. Laura, Heme/onc, recs appreciated - CM/SW - patient with sister and step son who seemed reluctant to make medical decisions, but now seems they are willing to do so per SW note. CODE: Full Diet: Cardio GI: none DVT: Heparin 5000U BID Dispo: pending cardiology evaluation, f/u biopsy results, and SW for POA and medical decision making Time spent on this encounter was 31 minutes which included 21 minutes of counseling and care coordination. I discussed with the nurse at bedside. Time of note may not reflect time patient was seen. Indio Gunn D.O Jul 27, 2020 08:53
[2020-07-27] MEDS: Aspirin Baby 81mg ORAL SCH (09:17)
[2020-07-27] MEDS: Levodopa/Carbidopa 10/100 tab ORAL SCH ×3 (09:18→17:32)
[2020-07-27] MEDS: Heparin 5000 units/ml inj SUBQ SCH ×2 (09:22→21:07)
--- NOTE | 2020-07-27 09:29 | Pulmonology Progress Note ---
Subjective ROS Limited/Unobtainable: Yes - altered, encephalopathic Interval Events: Awake and comfortable Constitutional: Reports: no symptoms HEENT: Repors: no symptoms Respiratory: Reports: no symptoms Cardiovascular: Reports: no symptoms Gastrointestinal/Abdominal: Reports: no symptoms Genitourinary: Reports: no symptoms Allergies: Coded Allergies: No Known Allergies (Unverified , 07/24/20) Objective Last 24 Hour Vital Signs Date Time Temp Pulse Resp B/P (MAP) Pulse Ox O2 Delivery O2 Flow Rate FiO2 07/27/20 09:18 63 121/75 07/27/20 04:00 98.8 87 20 121/75 (90) 100 07/27/20 04:00 63 07/27/20 00:00 97.9 92 18 138/75 (96) 100 07/27/20 00:00 108 07/26/20 21:29 89 151/65 07/26/20 21:00 Nasal Cannula 2.0 07/26/20 20:00 97.9 89 16 151/65 (93) 98 07/26/20 20:00 82 07/26/20 16:00 86 07/26/20 15:24 88 20 142/75 (97) 98 07/26/20 15:19 85 18 129/72 (91) 98 07/26/20 15:14 89 18 138/72 (94) 99 07/26/20 14:39 82 2.0 07/26/20 12:00 70 07/26/20 12:00 96.6 75 20 120/98 (105) 97 Intake and Output 07/26/20 07/27/20 19:00 07:00 Intake Total 120 ml Balance 120 ml Intake Oral 120 ml # Voids 2 General Appearance: no acute distress HEENT: normocephalic Respiratory: chest wall non-tender, decreased breath sounds Cardiovascular: normal peripheral pulses, normal rate Abdomen: normal bowel sounds Extremities: no cyanosis Microbiology Date/Time Source Procedure Growth Status 07/24/20 10:25 Nasopharynx SARS-CoV-2 RdRp Gene Assay - Final Complete Current Medications Medications (Trade) Dose Ordered Sig/Jordan Route PRN Reason Start Time Stop Time Status Last Admin Dose Admin Acetaminophen (Tylenol) 650 mg Q4H PRN ORAL Mild Pain (Pain Scale 1-3) 07/24/20 22:00 08/23/20 21:59 Acetaminophen/ Hydrocodone Bitart ([place] 5/325) 1 tab Q4H PRN ORAL Moderate Pain (Pain Scale 4-6) 07/24/20 22:00 07/31/20 21:59 Albuterol/ Ipratropium (Albuterol/ Ipratropium) 3 ml Q4H PRN HHN Shortness of Breath 07/25/20 13:15 07/30/20 13:14 Aspirin (ASA) 81 mg DAILY ORAL 07/25/20 09:00 09/08/20 08:59 07/27/20 09:17 Atorvastatin Calcium (Lipitor) 80 mg BEDTIME ORAL 07/25/20 21:00 10/23/20 20:59 07/26/20 21:28 Carbidopa/Levodopa (Sinemet 10/100) 1 tab THREE TIMES A DAY ORAL 07/26/20 18:00 08/25/20 17:59 07/27/20 09:18 Dexamethasone Sodium Phosphate (Decadron 4mg/ml vial) 4 mg Q6HR IVP 07/25/20 12:00 10/23/20 11:59 07/27/20 07:17 Haloperidol Lactate (Haldol) 5 mg Q6H PRN IM Agitation 07/26/20 13:30 09/09/20 13:29 07/27/20 05:05 Heparin Sodium (Porcine) (Heparin 5000 units/ml) 5,000 units EVERY 12 HOURS SUBQ 07/25/20 21:00 09/08/20 20:59 07/27/20 09:22 Hydralazine HCl (Apresoline) 25 mg Q6HR PRN ORAL For High Blood Pressure >170 07/25/20 12:45 10/23/20 12:44 Lidocaine HCl (Xylocaine 1% 30ml) 30 ml NOW PRN INJ Radiology Procedure 07/25/20 12:00 07/28/20 11:59 Metoprolol Tartrate (Lopressor) 25 mg Q12HR ORAL 07/25/20 21:00 10/23/20 20:59 07/27/20 09:18 Morphine Sulfate (Morphine Sulfate) 4 mg Q4H PRN IVP Severe Pain (Pain Scale 7-10) 07/24/20 22:00 07/31/20 21:59 07/25/20 15:39 Ondansetron HCl (Zofran) 4 mg Q4H PRN IVP Nausea & Vomiting 07/24/20 22:00 08/23/20 21:59 Quetiapine Fumarate (SEROqueL) 50 mg BEDTIME ORAL 07/26/20 21:00 09/09/20 20:59 07/26/20 21:28 Sodium Chloride 1,000 ml @ 150 mls/hr Q6H40M IV 07/24/20 23:00 08/23/20 22:59 07/27/20 07:30 Assessment/Plan Assessment/Plan IMPRESSION: 1. Hypercalcemia, suspect secondary to malignancy. 2. Lung mass. 3. Emphysema. 4. Hypertension. DISCUSSION: Continue IV fluid hydration. S/P CT-guided lung biopsy. Continue Decadron DC O2 Transfer to P4 DC planning Oly Lara Omar Syed MD Jul 27, 2020 09:29
--- NOTE | 2020-07-27 09:46 | Nephrology Progress Note ---
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 # Pulmonary HTN likely Class 3 # Hypercalcemia 2/2 ?Malignancy (MM) vs vs paraneoplastic syndrome ( squamous cell cancer) vs PHPTH # ?Chronic HFpEF 2/2 ischemic vs non-ischemic vs tachyarrhythmia induced cardiomyopathy - compensated # ?Chronic Respiratory Acidosis on home O2 # Normocytic Anemia 2/2 ACD vs DEYANIRA # Hx of COPD # Hx of Dementia # ?Parkinson's related dementia # Essential HTN - monitor free calcium - pamindronate 60 today - will give NS + lasix - pulm eval - surg eval - monitor calcium level - continue with steroids - check echo - monitor BP - avoid nephrotoxins Subjective ROS Limited/Unobtainable: No Constitutional: Reports: weakness HEENT: Denies: no symptoms, eye pain, blurred vision, tearing, double vision, ear pain, ear discharge, nose pain, nose congestion, throat pain, throat swelling, mouth pain, mouth swelling, other Genitourinary: Denies: no symptoms, burning, discharge, frequency, flank pain, hematuria, incontinence, pain, urgency, other Neurologic/Psychiatric: Denies: no symptoms, anxiety, depressed, emotional problems, headache, numbness, paresthesia, pre-existing deficit, seizure, tingling, tremors, weakness, other Subjective intermittently agitated and combative continues to have tremors Will add sinemet Objective Objective Last 24 Hour Vital Signs Date Time Temp Pulse Resp B/P (MAP) Pulse Ox O2 Delivery O2 Flow Rate FiO2 07/27/20 09:18 63 121/75 07/27/20 04:00 98.8 87 20 121/75 (90) 100 07/27/20 04:00 63 07/27/20 00:00 97.9 92 18 138/75 (96) 100 07/27/20 00:00 108 07/26/20 21:29 89 151/65 07/26/20 21:00 Nasal Cannula 2.0 07/26/20 20:00 97.9 89 16 151/65 (93) 98 07/26/20 20:00 82 07/26/20 16:00 86 07/26/20 15:24 88 20 142/75 (97) 98 07/26/20 15:19 85 18 129/72 (91) 98 07/26/20 15:14 89 18 138/72 (94) 99 07/26/20 14:39 82 2.0 07/26/20 12:00 70 07/26/20 12:00 96.6 75 20 120/98 (105) 97 Intake and Output 07/26/20 07/27/20 19:00 07:00 Intake Total 120 ml Balance 120 ml Intake Oral 120 ml # Voids 2 Height (Feet): 5 Height (Inches): 9.00 Weight (Pounds): 176 Terence Garcia M.D. Jul 27, 2020 09:45
--- NOTE | 2020-07-27 13:01 | Surgery Progress Note ---
Surgery Progress Note Subjective Additional Comments no acute events comfortable no complaints no n/v/f/c lung biopsy noted Objective Last 24 Hour Vital Signs Date Time Temp Pulse Resp B/P (MAP) Pulse Ox O2 Delivery O2 Flow Rate FiO2 07/27/20 12:00 98.8 87 20 121/75 (90) 100 07/27/20 09:18 63 121/75 07/27/20 09:00 Nasal Cannula 2.0 07/27/20 08:00 58 07/27/20 08:00 98.8 87 20 121/75 (90) 100 07/27/20 04:00 98.8 87 20 121/75 (90) 100 07/27/20 04:00 63 07/27/20 00:00 97.9 92 18 138/75 (96) 100 07/27/20 00:00 108 07/26/20 21:29 89 151/65 07/26/20 21:00 Nasal Cannula 2.0 07/26/20 20:00 97.9 89 16 151/65 (93) 98 07/26/20 20:00 82 07/26/20 16:00 86 07/26/20 15:24 88 20 142/75 (97) 98 07/26/20 15:19 85 18 129/72 (91) 98 07/26/20 15:14 89 18 138/72 (94) 99 07/26/20 14:39 82 2.0 I&O Intake and Output 07/26/20 07/27/20 19:00 07:00 Intake Total 120 ml Balance 120 ml Intake Oral 120 ml # Voids 2 Dressing: saturated Cardiovascular: RSR Respiratory: decreased breath sounds Abdomen: non-tender, present bowel sounds Extremities: no edema, no tenderness, no cyanosis Plan Problems: (1) Abdominal pain (2) Lung mass Assessment & Plan: ct guided biopsy pending path likely neoplasm Prior imaging studies reviewed. Emergency physician consent was on the chart, improved mild risk management. Procedural timeout performed. Localizing spiral acquisitions obtained through the chest. Intended puncture site was marked, sterilely prepped and draped. Local anesthesia with 1% lidocaine. Under CT visualization, a 17-gauge guide needle was advanced into the periphery of the target lesion. Total 3 needle passes then made using coaxially inserted 18-gauge automated biopsy gun. Specimens placed in formalin, submitted to pathology. Follow-up CT images demonstrated a small amount of air within the target lesion, and a small superficial hematoma at the puncture site. The patient otherwise tolerated the procedure well, without immediate complication. Total dose length product 900 mGycm. CTDIvol(s) 4, 6.7 x 9 mGy. Radiation dose was minimized using automated exposure control Comparison: none Findings: Intraoperative images document successful needle placement into the target lesion. Final images demonstrate small superficial hematoma at the puncture site Impression: Apparently successful right lung mass biopsy, as described. Final pathology pending The pulmonary arteries are well-opacified. No intraluminal filling defects or other findings to suggest acute pulmonary embolus are evident. The main pulmonary artery is dilated, measuring 4.3 cm in diameter, and the right and left pulmonary arteries are also dilated. The ascending thoracic aorta is ectatic although not frankly aneurysmal, measuring up to 4.3 cm in diameter. There is a mass in the right upper lobe. This demonstrates peripheral enhancement, central attenuations just above necrosis. This measures 7 x 6.5 x 7 cm. There is right hilar adenopathy, with multiple nodes in the right hilum, largest measuring 4 cm in diameter, also demonstrating some central low-attenuation. There is also mediastinal lymphadenopathy, the largest precarinal node measuring 3.7 cm long axis dimension. The lymphadenopathy results in mild narrowing of some of the segmental pulmonary arteries. The lungs are hyperinflated. There is centrilobular emphysema and bilateral bullous changes, the latter predominantly in the upper lobes but with also considerable mostly interstitial bullae in the lower lobes. Areas of scarring are demonstrated bilaterally. There is a small left pleural effusion No infiltrates are demonstrated. The heart size is normal. There is a pericardial effusion mostly anteriorly which measures up to 11 mm in thickness. The included thyroid is unremarkable. There is bilateral gynecomastia. There is diffuse mild edema of the subcutaneous fat. Please refer to report of abdominal pelvic CT performed the same time for f indings in the upper abdomen. Impression: Negative for evidence of acute pulmonary embolus or other acute pulmonary pathology. 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 Pericardial effusion Incidental finding of bilateral gynecomastia Evidence of mild anasarca, with diffuse edema of the subcutaneous fat. (3) Chest pain Pedro Burton Jul 27, 2020 13:01
--- NOTE | 2020-07-27 13:10 | NUR ---
NURSES NOTES: Report given to FRANCISCO JAVIER Loya. Pt transferred via gurney to 4E to 411-2 in stable condition. Pt belongings gone over with pt and nurse. Endorsed that new IV placed because removed the other one. Also endorsed that pt does try to get out of the bed and is a high fall risk.
--- NOTE | 2020-07-27 13:15 | NUR ---
NURSE NOTES: RECEIVED PATIENT A/A/OX1, CONFUSED. PATIENT SHOWN TREMORS. PERSONAL BELONGINGS NOTED. ON O2 2L VIA NC. NO ACUTE RESP DISTRESS NOTED. SKIN ASSESSMENT RENDERED. SKIN IS INTACT. INCONTINENT X2. PIV PATENT AND INTACT. IVF INFUSING WELL. KEPT HOB ELEVATED FOR ADEQUATE VENTILATION. KEPT BED IN THE LOWEST POSITION. SIDERAILS ARE UP X3. BED BRAKES ENGAGED AND LOCK MODE @ ALL TIMES. WILL CONT TO MONITOR.
[2020-07-27 13:44] LABS: BASOPHILS % (AUTO) 0.7 % (0.0-2.0); HEMATOCRIT 32.3 % (42.0-52.0); HEMOGLOBIN 10.5 G/DL (14.2-18.0); LYMPHOCYTES % (AUTO) 17.1 % (20.0-45.0); MEAN CORPUSCULAR VOLUME 95 FL (80-99); MONOCYTES % (AUTO) 6.9 % (1.0-10.0); NEUTROPHILS % (AUTO) 75.4 % (45.0-75.0); PLATELET COUNT 194 K/UL (150-450); RED BLOOD COUNT 3.39 M/UL (4.70-6.10); RED CELL DISTRIBUTION WIDTH 13.9 % (11.6-14.8); WHITE BLOOD COUNT 9.9 K/UL (4.8-10.8)
[2020-07-27 14:03] LABS: ANION GAP 5 mmol/L (5-15); BLOOD UREA NITROGEN 29 mg/dL (7-18); CALCIUM 11.7 MG/DL (8.5-10.1); CARBON DIOXIDE 27 MMOL/L (21-32); CHLORIDE 105 MMOL/L (98-107); CREATININE 1.3 MG/DL (0.55-1.30); PHOSPHORUS 2.5 MG/DL (2.5-4.9); POTASSIUM 4.3 MMOL/L (3.5-5.1); SODIUM 136 MMOL/L (136-145)
--- NOTE | 2020-07-27 14:20 | NUR ---
NURSE NOTES: called Dr Gunn's office and spoke with Beverly. awaiting for a call back re: abnormal lab result. will cont to monitor. Addendum: 07/27/20 at 1447 [address] F[address]DER LVN [address] GUNN CALLED BACK AND MADE AWARE OF THE MG 1.4. HE WILL ENTER HIS ORDERS. WILL CONT TO MONITOR.
--- NOTE | 2020-07-27 15:23 | NUR ---
NURSE NOTES: patient appeared to be agitated and confused. attempted to get out of bed. Haldol IM 5mg given per MD order. HoB elevated. will cont to monitor.
--- NOTE | 2020-07-27 15:40 | NUR ---
NURSE NOTES: INITIATED BILATERAL SOFT WRISTS RESTRAINTS. MADE DR GUERRERO AWARE PATIENT CURRENT BEHAVIOR. PATIENT APPEARED TO BE NONCOMPLIANT, ATTEMPTED TO GET OUT OF BED AND PULLING OUT DEVICES. PATIENT IS CONFUSED. BED ALARM ACTIVATED AND LOCK @ ALL TIMES. WILL CONT TO MONITOR.
--- NOTE | 2020-07-27 19:34 | NUR ---
NURSE HAND-OFF: Important Events on Shift:[AGITATION AND ATTEMPTED TO GET OUT OF BED; SOFT WRSIT RESTRAINS BILATERAL ORDERED; D/C IVF; D/C HALDOL; PATIENT DESAT] Patient Status: [STABLE NOW] Diet: [CARDIAC] Pending Orders: [LABS] Pending Results/Labs:[AM] Pending MD notification:[] Latest Vital Signs: Temperature 98.1 , Pulse 90 , B/P 129 /86 , Respiratory Rate 18 , O2 SAT 94 , Nasal Cannula, O2 Flow Rate 2.0 . Vital Sign Comment: [] Latest Knox Fall Score: 75 Fall Risk: High Risk Safety Measures: Call light Within Reach, Bed Alarm Zone 1, Side Rails Side Rails x3, Bed position Low and Locked. Fall Precautions: Yellow Socks Yellow Gown Door Sign Patient Fall Education Report given to [JESUS].
--- NOTE | 2020-07-27 19:55 | NUR ---
NURSE NOTES: Patient in bed, awake and confused. On 2L oxygen via nasal cannula with no signs of distress or SOB. Bilat soft wrist restraints in progress for patient safety, no swelling, skin intact, pulses palpable. IV intact and patent. Bed locked and in lowest position. Call light in reach. Bed alarm on. Will cont plan of care.
[2020-07-27] MEDS ORDERED: NS 500ML ONE (20:56)
[2020-07-27] MEDS: Atorvastatin 80mg tab ORAL SCH (21:01)
--- NOTE | 2020-07-27 22:52 | NUR ---
NURSE NOTES: Patient's O2 sat noted to be dropping to 87-89% with nasal cannula on. Called RT. Patient now on on venturi mask at 55% - 14L. Patient's O2 sat currently 96%. Message left informing Dr. Chester.
[2020-07-28] VITALS (8 sets, daily range): BP systolic 135–165; BP diastolic 71–97
--- NOTE | 2020-07-28 07:01 | NUR ---
NURSE HAND-OFF: Important Events on Shift: Venturi mask, Restraints continued Patient Status: Stable Diet: Cardiac Pending Orders: N/A Pending Results/Labs: Ionized Ca, Phos, Mag, BMP, CBC Pending MD notification: N/A Latest Vital Signs: Temperature 99.0 , Pulse 77 , B/P 159 /81 , Respiratory Rate 24 , O2 SAT 95 , Nasal Cannula, O2 Flow Rate 2.0 . Vital Sign Comment: N/A Latest Knox Fall Score: 75 Fall Risk: High Risk Safety Measures: Call light Within Reach, Bed Alarm Zone 1, Side Rails Side Rails x3, Bed position Low and Locked. Fall Precautions: Yellow Socks Yellow Gown Door Sign Patient Fall Education Report given to FRANCISCO JAVIER Loya.
--- NOTE | 2020-07-28 07:09 | Hematology/Onc Progress Note ---
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) --> recommend a ct guided biopsy 07/26/20 done --> also r/o mets with ct a/p-->unremarkable --> PET recommend outpatient --> tumor markers have been ordered # Hypercalcemia likely due to maligancacy --> ivfs as needed, zometa/pamidronate if remains elevated --> lasix can be given prn # New vs Paroxsymal Afib --> as per cards # Acute vs Chronic Encephalopathy 2/2 Hypercalcemia, worsening Parkinson/dementia --> r/o infectious etiology # Normocytic Anemia 2/2 ACD vs DEYANIRA --> anemia panel if lower # Pulmonary HTN likely Class 3 # ?Chronic HFpEF 2/2 ischemic vs non-ischemic vs tachyarrhythmia induced cardiomyopathy - compensated # ?Chronic Respiratory Acidosis on home O2 # Hx of COPD # Hx of Dementia # ?Parkinson's related dementia # Essential HTN Appreciate consultation and dw RN Subjective Constitutional: Denies: no symptoms, chills, fever, malaise, weakness, other HEENT: Denies: no symptoms, eye pain, blurred vision, tearing, double vision, ear pain, ear discharge, nose pain, nose congestion, throat pain, throat swelling, mouth pain, mouth swelling, other Cardiovascular: Denies: no symptoms, chest pain, edema, irregular heart rate, lightheadedness, palpitations, syncope, other Respiratory: Denies: no symptoms, cough, shortness of breath, SOB with excertion, SOB at rest, sputum, wheezing, other Gastrointestinal/Abdominal: Denies: no symptoms, abdomen distended, abdominal pain, black stools, tarry stools, blood in stool, constipated, diarrhea, difficulty swallowing, nausea, poor appetite, poor fluid intake, rectal bleeding, vomiting, other Genitourinary: Denies: no symptoms, burning, discharge, frequency, flank pain, hematuria, incontinence, pain, urgency, other Neurologic/Psychiatric: Denies: no symptoms, anxiety, depressed, emotional problems, headache, numbness, paresthesia, pre-existing deficit, seizure, tingling, tremors, weakness, other Hematologic/Lymphatic: Denies: no symptoms, anemia, easy bleeding, easy bruising, adenopathy, other Allergies: Coded Allergies: No Known Allergies (Unverified , 07/24/20) Subjective 07/28 on restraints, on 14L on venturi mask, no bleeding, meds noted, hgb 10.5, biopsy done 07/26 Objective Objective Current Medications Medications (Trade) Dose Ordered Sig/Jordan Route PRN Reason Start Time Stop Time Status Last Admin Dose Admin Acetaminophen (Tylenol) 650 mg Q4H PRN ORAL Mild Pain (Pain Scale 1-3) 07/24/20 22:00 08/23/20 21:59 Acetaminophen/ Hydrocodone Bitart ([place] 5/325) 1 tab Q4H PRN ORAL Moderate Pain (Pain Scale 4-6) 07/24/20 22:00 07/31/20 21:59 Albuterol/ Ipratropium (Albuterol/ Ipratropium) 3 ml Q4H PRN HHN Shortness of Breath 07/25/20 13:15 07/30/20 13:14 Aspirin (ASA) 81 mg DAILY ORAL 07/25/20 09:00 09/08/20 08:59 07/27/20 09:17 Atorvastatin Calcium (Lipitor) 80 mg BEDTIME ORAL 07/25/20 21:00 10/23/20 20:59 07/27/20 21:01 Carbidopa/Levodopa (Sinemet 10/100) 1 tab THREE TIMES A DAY ORAL 07/26/20 18:00 08/25/20 17:59 07/27/20 17:32 Dexamethasone Sodium Phosphate (Decadron 4mg/ml vial) 4 mg Q6HR IVP 07/25/20 12:00 10/23/20 11:59 07/28/20 05:53 Furosemide (Lasix) 40 mg DAILY IV 07/28/20 09:00 08/27/20 08:59 Heparin Sodium (Porcine) (Heparin 5000 units/ml) 5,000 units EVERY 12 HOURS SUBQ 07/25/20 21:00 09/08/20 20:59 07/27/20 21:07 Hydralazine HCl (Apresoline) 25 mg Q6HR PRN ORAL For High Blood Pressure >170 07/25/20 12:45 10/23/20 12:44 Lidocaine HCl (Xylocaine 1% 30ml) 30 ml NOW PRN INJ Radiology Procedure 07/25/20 12:00 07/28/20 11:59 Metoprolol Tartrate (Lopressor) 25 mg Q12HR ORAL 07/25/20 21:00 10/23/20 20:59 07/27/20 21:01 Morphine Sulfate (Morphine Sulfate) 4 mg Q4H PRN IVP Severe Pain (Pain Scale 7-10) 07/24/20 22:00 07/31/20 21:59 07/25/20 15:39 Ondansetron HCl (Zofran) 4 mg Q4H PRN IVP Nausea & Vomiting 07/24/20 22:00 08/23/20 21:59 Quetiapine Fumarate (SEROqueL) 50 mg BEDTIME ORAL 07/26/20 21:00 09/09/20 20:59 07/27/20 21:01 Last 24 Hour Vital Signs Date Time Temp Pulse Resp B/P (MAP) Pulse Ox O2 Delivery O2 Flow Rate FiO2 07/28/20 04:00 99.0 77 24 159/81 (107) 95 07/28/20 00:00 97.7 81 24 157/79 (105) 94 07/27/20 21:01 79 159/82 07/27/20 21:00 Nasal Cannula 2.0 07/27/20 20:00 98.1 79 20 159/82 (107) 94 07/27/20 17:03 94 07/27/20 17:00 98.1 90 18 129/86 (100) 78 07/27/20 16:55 98.1 90 18 129/86 (100) 78 07/27/20 13:10 98.2 88 21 126/82 (97) 98 07/27/20 12:00 98.8 87 20 121/75 (90) 100 07/27/20 09:18 63 121/75 07/27/20 09:00 Nasal Cannula 2.0 07/27/20 08:00 58 07/27/20 08:00 98.8 87 20 121/75 (90) 100 07/27/20 04:00 98.8 87 20 121/75 (90) 100 07/27/20 04:00 63 07/27/20 00:00 97.9 92 18 138/75 (96) 100 07/27/20 00:00 108 07/26/20 21:29 89 151/65 07/26/20 21:00 Nasal Cannula 2.0 07/26/20 20:00 97.9 89 16 151/65 (93) 98 07/26/20 20:00 82 07/26/20 16:00 86 07/26/20 15:24 88 20 142/75 (97) 98 07/26/20 15:19 85 18 129/72 (91) 98 07/26/20 15:14 89 18 138/72 (94) 99 07/26/20 14:39 82 2.0 07/26/20 12:00 70 07/26/20 12:00 96.6 75 20 120/98 (105) 97 07/26/20 09:27 70 124/67 07/26/20 09:00 Nasal Cannula 2.0 07/26/20 08:00 88 07/26/20 08:00 96.6 60 22 141/56 (84) 92 07/26/20 07:10 88 20 98 Nasal Cannula 2.0 28 Intake and Output 07/27/20 07/28/20 19:00 07:00 Intake Total 880 ml Balance 880 ml Intake Oral 480 ml IV Total 400 ml # Voids 1 Labs Test 07/25/20 14:20 07/26/20 01:57 07/26/20 06:15 07/27/20 13:20 Calcium (Send out) 12.3 mg/dL (8.6-10.2) Iron Level 33 ug/dL (50-175) Total Iron Binding Capacity 150 ug/dL (250-450) Percent Iron Saturation 22 % (15-50) Unsaturated Iron Binding 117 ug/dL (112-346) Ferritin 1120 NG/ML (8-388) Lactate Dehydrogenase 200 U/L (81-234) Total Protein (PEP) 8.0 g/dL (6.0-8.5) Albumin (PEP) 2.9 g/dL (2.9-4.4) Globulin (PEP) 5.1 g/dL (2.2-3.9) Albumin/Globulin Ratio 0.6 (0.7-1.7) Crrxe-0-Ysbutztqs 0.4 g/dL (0.0-0.4) Tkysm-3-Ucmcyjuvs 0.9 g/dL (0.4-1.0) Beta Globulins 1.0 g/dL (0.7-1.3) Beta Gamma Globulin 2.9 g/dL (0.4-1.8) PEP Abnormal Protein Bands 2.3 g/dL (Not Observed) Protein Electrophoresis Interpret Comment (.) Vitamin B12 Level 828 PG/ML (193-986) Folate 43.0 NG/ML (8.6-58.9) Thyroid Stimulating Hormone (TSH) 0.668 uiU/mL (0.358-3.740) PTH (Intact) Whole Molecule Comment (.) Parathyroid Hormone (Intact) 11 pg/mL (15-65) POC Whole Blood Glucose 146 MG/DL (74-106) White Blood Count 5.7 K/UL (4.8-10.8) 9.9 K/UL (4.8-10.8) Red Blood Count 3.48 M/UL (4.70-6.10) 3.39 M/UL (4.70-6.10) Hemoglobin 10.8 G/DL (14.2-18.0) 10.5 G/DL (14.2-18.0) Hematocrit 32.6 % (42.0-52.0) 32.3 % (42.0-52.0) Mean Corpuscular Volume 94 FL (80-99) 95 FL (80-99) Mean Corpuscular Hemoglobin 31.1 PG (27.0-31.0) 30.9 PG (27.0-31.0) Mean Corpuscular Hemoglobin Concent 33.1 G/DL (32.0-36.0) 32.4 G/DL (32.0-36.0) Red Cell Distribution Width 14.3 % (11.6-14.8) 13.9 % (11.6-14.8) Platelet Count 202 K/UL (150-450) 194 K/UL (150-450) Mean Platelet Volume 6.8 FL (6.5-10.1) 6.8 FL (6.5-10.1) Neutrophils (%) (Auto) 73.7 % (45.0-75.0) 75.4 % (45.0-75.0) Lymphocytes (%) (Auto) 22.1 % (20.0-45.0) 17.1 % (20.0-45.0) Monocytes (%) (Auto) 3.6 % (1.0-10.0) 6.9 % (1.0-10.0) Eosinophils (%) (Auto) 0.0 % (0.0-3.0) 0.0 % (0.0-3.0) Basophils (%) (Auto) 0.6 % (0.0-2.0) 0.7 % (0.0-2.0) Sodium Level 135 MMOL/L (136-145) 136 MMOL/L (136-145) Potassium Level 4.4 MMOL/L (3.5-5.1) 4.3 MMOL/L (3.5-5.1) Chloride Level 103 MMOL/L (98-107) 105 MMOL/L (98-107) Carbon Dioxide Level 27 MMOL/L (21-32) 27 MMOL/L (21-32) Anion Gap 5 mmol/L (5-15) 5 mmol/L (5-15) Blood Urea Nitrogen 21 mg/dL (7-18) 29 mg/dL (7-18) Creatinine 1.3 MG/DL (0.55-1.30) 1.3 MG/DL (0.55-1.30) Estimat Glomerular Filtration Rate > 60 mL/min (>60) > 60 mL/min (>60) Glucose Level 114 MG/DL (74-106) 121 MG/DL (74-106) Calcium Level 12.2 MG/DL (8.5-10.1) 11.7 MG/DL (8.5-10.1) Ionized Calcium (Measured) 1.59 mmol/L (1.10-1.35) 1.55 mmol/L (1.10-1.35) Phosphorus Level 2.6 MG/DL (2.5-4.9) 2.5 MG/DL (2.5-4.9) Magnesium Level 1.5 MG/DL (1.8-2.4) 1.4 MG/DL (1.8-2.4) Test 07/27/20 16:46 POC Whole Blood Glucose 157 MG/DL (74-106) Height (Feet): 5 Height (Inches): 9.00 Weight (Pounds): 176 Objective Physical Exam General appearance: alert, cooperative, no distress Heent: Normocephalic, without obvious abnormality, atraumatic, EOM's intact. Fundi benign supple, symmetrical, trachea midline, no adenopathy Lungs: clear to auscultation bilaterally CV: irr irr, S1, S2 normal, no murmur, click, rub or gallop Abd: soft, non-tender. Bowel sounds normal Extremities: extremities normal, no cce Pulses: 2+ and symmetric Skin: Skin color, texture, turgor normal Neurologic: Grossly normal Al Laura MD Jul 28, 2020 07:09
--- NOTE | 2020-07-28 07:24 | NUR ---
NURSE NOTES: RECEIVED PATIENT A/A/OX1, CONFUSED. RESPONSE TO VOICE AND TACTILE STIMULI. ON VENTURI MASK 55% 14l WITH HOB ELEVATED. NO ACUTE RESP DISTRESS NOTED. INCONTINENT X2. PIV PATENT AND INTACT. SALINE LOCK. ON BILATERAL SOFT WRISTS RESTRAINTS FOR SAFETY. KEPT BED IN THE LOWEST POSITION. SIDERAILS ARE UP X3. BED BRAKES ENGAGED AND LOCK MODE @ ALL TIMES. WILL CONT TO MONITOR.
[2020-07-28] MEDS: Aspirin Baby 81mg ORAL SCH (09:05)
[2020-07-28] MEDS: Levodopa/Carbidopa 10/100 tab ORAL SCH ×3 (09:05→17:07)
[2020-07-28] MEDS: Heparin 5000 units/ml inj SUBQ SCH ×2 (09:07→21:40)
[2020-07-28 09:09] LABS: BASOPHILS % (AUTO) 0.8 % (0.0-2.0); HEMATOCRIT 34.3 % (42.0-52.0); HEMOGLOBIN 11.1 G/DL (14.2-18.0); LYMPHOCYTES % (AUTO) 14.7 % (20.0-45.0); MEAN CORPUSCULAR VOLUME 95 FL (80-99); MONOCYTES % (AUTO) 5.5 % (1.0-10.0); PLATELET COUNT 200 K/UL (150-450); RED BLOOD COUNT 3.61 M/UL (4.70-6.10); RED CELL DISTRIBUTION WIDTH 14.1 % (11.6-14.8); WHITE BLOOD COUNT 9.8 K/UL (4.8-10.8)
[2020-07-28 09:28] LABS: ANION GAP 2 mmol/L (5-15); BLOOD UREA NITROGEN 27 mg/dL (7-18); CALCIUM 10.6 MG/DL (8.5-10.1); CARBON DIOXIDE 28 MMOL/L (21-32); CHLORIDE 106 MMOL/L (98-107); CREATININE 1.1 MG/DL (0.55-1.30); PHOSPHORUS 2.3 MG/DL (2.5-4.9); POTASSIUM 3.7 MMOL/L (3.5-5.1); SODIUM 136 MMOL/L (136-145)
--- NOTE | 2020-07-28 10:51 | NUR ---
NURSE NOTES: CALLED DR IVERSON'S OFFICE AND SPOKE WITH ELDER RE: ABNORMAL LAB RESULT. AWAITING FOR A CALL BACK. Addendum: 07/28/20 at 1059 by TINA FELDER LVN RECEIVED NEW ORDER OBTAINED.
--- NOTE | 2020-07-28 11:00 | NUR ---
NURSE NOTES: DR HARRISON MADE AWARE OF PATIENT BEING ON VENTURI MASK. PATIENT IS DOING WELL AND O2 SATURATION IS IN ABOVE 95%. KEPT HOB ELEVATED. WILL CONT TO MONITOR.
--- NOTE | 2020-07-28 11:25 | Pulmonology Progress Note ---
Subjective ROS Limited/Unobtainable: No Interval Events: Tremolous, requiring increased FiO2 Constitutional: Reports: no symptoms HEENT: Repors: no symptoms Respiratory: Reports: no symptoms Cardiovascular: Reports: no symptoms Gastrointestinal/Abdominal: Reports: no symptoms Genitourinary: Reports: no symptoms Allergies: Coded Allergies: No Known Allergies (Unverified , 07/24/20) Objective Last 24 Hour Vital Signs Date Time Temp Pulse Resp B/P (MAP) Pulse Ox O2 Delivery O2 Flow Rate FiO2 07/28/20 09:05 85 136/97 07/28/20 08:00 97.9 85 19 136/97 (110) 95 07/28/20 04:00 99.0 77 24 159/81 (107) 95 07/28/20 00:00 97.7 81 24 157/79 (105) 94 07/27/20 21:01 79 159/82 07/27/20 21:00 Nasal Cannula 2.0 07/27/20 20:00 98.1 79 20 159/82 (107) 94 07/27/20 17:03 94 07/27/20 17:00 98.1 90 18 129/86 (100) 78 07/27/20 16:55 98.1 90 18 129/86 (100) 78 07/27/20 13:10 98.2 88 21 126/82 (97) 98 07/27/20 12:00 98.8 87 20 121/75 (90) 100 Intake and Output 07/27/20 07/28/20 19:00 07:00 Intake Total 880 ml Balance 880 ml Intake Oral 480 ml IV Total 400 ml # Voids 1 General Appearance: no acute distress HEENT: normocephalic Respiratory: chest wall non-tender, decreased breath sounds Cardiovascular: normal peripheral pulses, normal rate Abdomen: normal bowel sounds Extremities: no cyanosis Laboratory Tests 07/27/20 13:20: White Blood Count 9.9#, Red Blood Count 3.39L, Hemoglobin 10.5L, Hematocrit 32.3L, Mean Corpuscular Volume 95, Mean Corpuscular Hemoglobin 30.9, Mean Corpuscular Hemoglobin Concent 32.4, Red Cell Distribution Width 13.9, Platelet Count 194, Mean Platelet Volume 6.8, Neutrophils (%) (Auto) 75.4H, Lymphocytes (%) (Auto) 17.1L, Monocytes (%) (Auto) 6.9, Eosinophils (%) (Auto) 0.0, Basophils (%) (Auto) 0.7, Sodium Level 136, Potassium Level 4.3, Chloride Level 105, Carbon Dioxide Level 27, Anion Gap 5, Blood Urea Nitrogen 29H, Creatinine 1.3, Estimat Glomerular Filtration Rate > 60, Glucose Level 121H, Calcium Level 11.7H, Ionized Calcium (Measured) 1.55H, Phosphorus Level 2.5, Magnesium Level 1.4L 07/27/20 16:46: POC Whole Blood Glucose 157H 07/28/20 08:50: White Blood Count 9.8, Red Blood Count 3.61L, Hemoglobin 11.1L, Hematocrit 34.3L , Mean Corpuscular Volume 95, Mean Corpuscular Hemoglobin 30.8, Mean Corpuscular Hemoglobin Concent 32.4, Red Cell Distribution Width 14.1, Platelet Count 200, Mean Platelet Volume 7.4, Neutrophils (%) (Auto) 79.0H, Lymphocytes (%) (Auto) 14.7L, Monocytes (%) (Auto) 5.5, Eosinophils (%) (Auto) 0.0, Basophils (%) (Auto) 0.8, Sodium Level 136, Potassium Level 3.7, Chloride Level 106, Carbon Dioxide Level 28, Anion Gap 2L, Blood Urea Nitrogen 27H, Creatinine 1.1, Estimat Glomerular Filtration Rate > 60, Glucose Level 113H, Calcium Level 10.6H, Ionized Calcium (Measured) 1.46H, Phosphorus Level 2.3L, Magnesium Level 1.6L Current Medications Medications (Trade) Dose Ordered Sig/Jordan Route PRN Reason Start Time Stop Time Status Last Admin Dose Admin Acetaminophen (Tylenol) 650 mg Q4H PRN ORAL Mild Pain (Pain Scale 1-3) 07/24/20 22:00 08/23/20 21:59 Acetaminophen/ Hydrocodone Bitart ([place] 5/325) 1 tab Q4H PRN ORAL Moderate Pain (Pain Scale 4-6) 07/24/20 22:00 07/31/20 21:59 Albuterol/ Ipratropium (Albuterol/ Ipratropium) 3 ml Q4H PRN HHN Shortness of Breath 07/25/20 13:15 07/30/20 13:14 Aspirin (ASA) 81 mg DAILY ORAL 07/25/20 09:00 09/08/20 08:59 07/28/20 09:05 Atorvastatin Calcium (Lipitor) 80 mg BEDTIME ORAL 07/25/20 21:00 10/23/20 20:59 07/27/20 21:01 Carbidopa/Levodopa (Sinemet 10/100) 1 tab THREE TIMES A DAY ORAL 07/26/20 18:00 08/25/20 17:59 07/28/20 09:05 Dexamethasone Sodium Phosphate (Decadron 4mg/ml vial) 4 mg Q6HR IVP 07/25/20 12:00 10/23/20 11:59 07/28/20 05:53 Furosemide (Lasix) 40 mg DAILY IV 07/28/20 09:00 08/27/20 08:59 07/28/20 09:55 Heparin Sodium (Porcine) (Heparin 5000 units/ml) 5,000 units EVERY 12 HOURS SUBQ 07/25/20 21:00 09/08/20 20:59 07/28/20 09:07 Hydralazine HCl (Apresoline) 25 mg Q6HR PRN ORAL For High Blood Pressure >170 07/25/20 12:45 10/23/20 12:44 Lidocaine HCl (Xylocaine 1% 30ml) 30 ml NOW PRN INJ Radiology Procedure 07/25/20 12:00 07/28/20 11:59 Magnesium Sulfate 100 ml @ 100 mls/hr ONCE ONCE IVPB 07/28/20 11:00 07/28/20 11:59 Metoprolol Tartrate (Lopressor) 25 mg Q12HR ORAL 07/25/20 21:00 10/23/20 20:59 07/28/20 09:05 Morphine Sulfate (Morphine Sulfate) 4 mg Q4H PRN IVP Severe Pain (Pain Scale 7-10) 07/24/20 22:00 07/31/20 21:59 07/25/20 15:39 Ondansetron HCl (Zofran) 4 mg Q4H PRN IVP Nausea & Vomiting 07/24/20 22:00 08/23/20 21:59 Quetiapine Fumarate (SEROqueL) 50 mg BEDTIME ORAL 07/26/20 21:00 09/09/20 20:59 07/27/20 21:01 Assessment/Plan Assessment/Plan IMPRESSION: 1. Hypercalcemia, suspect secondary to malignancy. 2. Lung mass. 3. Emphysema. 4. Hypertension. DISCUSSION: DC IV fluid hydration. S/P CT-guided lung biopsy. Continue Decadron Continue O2 Minimize sedation Oly Lara Omar Syed MD Jul 28, 2020 11:25
--- NOTE | 2020-07-28 12:32 | Nephrology Progress Note ---
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 # Pulmonary HTN likely Class 3 # Hypercalcemia 2/2 ?Malignancy (MM) vs vs paraneoplastic syndrome ( squamous cell cancer) vs PHPTH # ?Chronic HFpEF 2/2 ischemic vs non-ischemic vs tachyarrhythmia induced cardiomyopathy - compensated # ?Chronic Respiratory Acidosis on home O2 # Normocytic Anemia 2/2 ACD vs DEYANIRA # Hx of COPD # Hx of Dementia # ?Parkinson's related dementia # Essential HTN - S/P CT-guided lung biopsy - follow path - monitor free calcium - s/p pamindronate - trial of sinemet for tremors - pulm eval - surg eval - monitor calcium level - continue with steroids - monitor BP - avoid nephrotoxins Subjective ROS Limited/Unobtainable: No Constitutional: Reports: weakness HEENT: Denies: no symptoms, eye pain, blurred vision, tearing, double vision, ear pain, ear discharge, nose pain, nose congestion, throat pain, throat swelling, mouth pain, mouth swelling, other Genitourinary: Denies: no symptoms, burning, discharge, frequency, flank pain, hematuria, incontinence, pain, urgency, other Neurologic/Psychiatric: Denies: no symptoms, anxiety, depressed, emotional problems, headache, numbness, paresthesia, pre-existing deficit, seizure, tingling, tremors, weakness, other Subjective S/P CT-guided lung biopsy intermittently agitated and combative continues to have tremors sinemet added free calcium downtrending Objective Objective Last 24 Hour Vital Signs Date Time Temp Pulse Resp B/P (MAP) Pulse Ox O2 Delivery O2 Flow Rate FiO2 07/28/20 12:00 98.2 85 20 135/85 (102) 98 07/28/20 09:05 85 136/97 07/28/20 08:00 97.9 85 19 136/97 (110) 95 07/28/20 04:00 99.0 77 24 159/81 (107) 95 07/28/20 00:00 97.7 81 24 157/79 (105) 94 07/27/20 21:01 79 159/82 07/27/20 21:00 Nasal Cannula 2.0 07/27/20 20:00 98.1 79 20 159/82 (107) 94 07/27/20 17:03 94 07/27/20 17:00 98.1 90 18 129/86 (100) 78 07/27/20 16:55 98.1 90 18 129/86 (100) 78 07/27/20 13:10 98.2 88 21 126/82 (97) 98 Intake and Output 07/27/20 07/28/20 19:00 07:00 Intake Total 880 ml Balance 880 ml Intake Oral 480 ml IV Total 400 ml # Voids 1 Laboratory Tests 07/27/20 13:20: White Blood Count 9.9#, Red Blood Count 3.39L, Hemoglobin 10.5L, Hematocrit 32.3L, Mean Corpuscular Volume 95, Mean Corpuscular Hemoglobin 30.9, Mean Corpuscular Hemoglobin Concent 32.4, Red Cell Distribution Width 13.9, Platelet Count 194, Mean Platelet Volume 6.8, Neutrophils (%) (Auto) 75.4H, Lymphocytes (%) (Auto) 17.1L, Monocytes (%) (Auto) 6.9, Eosinophils (%) (Auto) 0.0, Basophils (%) (Auto) 0.7, Sodium Level 136, Potassium Level 4.3, Chloride Level 105, Carbon Dioxide Level 27, Anion Gap 5, Blood Urea Nitrogen 29H, Creatinine 1.3, Estimat Glomerular Filtration Rate > 60, Glucose Level 121H, Calcium Level 11.7H, Ionized Calcium (Measured) 1.55H, Phosphorus Level 2.5, Magnesium Level 1.4L 07/27/20 16:46: POC Whole Blood Glucose 157H 07/28/20 08:50: White Blood Count 9.8, Red Blood Count 3.61L, Hemoglobin 11.1L, Hematocrit 34.3L , Mean Corpuscular Volume 95, Mean Corpuscular Hemoglobin 30.8, Mean Corpuscular Hemoglobin Concent 32.4, Red Cell Distribution Width 14.1, Platelet Count 200, Mean Platelet Volume 7.4, Neutrophils (%) (Auto) 79.0H, Lymphocytes (%) (Auto) 14.7L, Monocytes (%) (Auto) 5.5, Eosinophils (%) (Auto) 0.0, Basophils (%) (Auto) 0.8, Sodium Level 136, Potassium Level 3.7, Chloride Level 106, Carbon Dioxide Level 28, Anion Gap 2L, Blood Urea Nitrogen 27H, Creatinine 1.1, Estimat Glomerular Filtration Rate > 60, Glucose Level 113H, Calcium Level 10.6H, Ionized Calcium (Measured) 1.46H, Phosphorus Level 2.3L, Magnesium Level 1.6L Height (Feet): 5 Height (Inches): 9.00 Weight (Pounds): 176 Terence Garcia M.D. Jul 28, 2020 12:32
--- NOTE | 2020-07-28 12:43 | General Progress Note ---
Subjective ROS Limited/Unobtainable: Yes - advanced parkinson, dementia Allergies: Coded Allergies: No Known Allergies (Unverified , 07/24/20) Subjective Overniight patient desaturated and had to placed on simple mask. Currently sat well. Altered. Has restraints placed. Will try to call family for discussions regarding goals of care. Objective Last 24 Hour Vital Signs Date Time Temp Pulse Resp B/P (MAP) Pulse Ox O2 Delivery O2 Flow Rate FiO2 07/28/20 12:00 98.2 85 20 135/85 (102) 98 07/28/20 09:05 85 136/97 07/28/20 09:00 Nasal Cannula 2.0 07/28/20 08:00 97.9 85 19 136/97 (110) 95 07/28/20 04:00 99.0 77 24 159/81 (107) 95 07/28/20 00:00 97.7 81 24 157/79 (105) 94 07/27/20 21:01 79 159/82 07/27/20 21:00 Nasal Cannula 2.0 07/27/20 20:00 98.1 79 20 159/82 (107) 94 07/27/20 17:03 94 07/27/20 17:00 98.1 90 18 129/86 (100) 78 07/27/20 16:55 98.1 90 18 129/86 (100) 78 07/27/20 13:10 98.2 88 21 126/82 (97) 98 Intake and Output 07/27/20 07/28/20 19:00 07:00 Intake Total 880 ml Balance 880 ml Intake Oral 480 ml IV Total 400 ml # Voids 1 Laboratory Tests 07/27/20 13:20: White Blood Count 9.9#, Red Blood Count 3.39L, Hemoglobin 10.5L, Hematocrit 32.3L, Mean Corpuscular Volume 95, Mean Corpuscular Hemoglobin 30.9, Mean Corpuscular Hemoglobin Concent 32.4, Red Cell Distribution Width 13.9, Platelet Count 194, Mean Platelet Volume 6.8, Neutrophils (%) (Auto) 75.4H, Lymphocytes (%) (Auto) 17.1L, Monocytes (%) (Auto) 6.9, Eosinophils (%) (Auto) 0.0, Basophils (%) (Auto) 0.7, Sodium Level 136, Potassium Level 4.3, Chloride Level 105, Carbon Dioxide Level 27, Anion Gap 5, Blood Urea Nitrogen 29H, Creatinine 1.3, Estimat Glomerular Filtration Rate > 60, Glucose Level 121H, Calcium Level 11.7H, Ionized Calcium (Measured) 1.55H, Phosphorus Level 2.5, Magnesium Level 1.4L 07/27/20 16:46: POC Whole Blood Glucose 157H 07/28/20 08:50: White Blood Count 9.8, Red Blood Count 3.61L, Hemoglobin 11.1L, Hematocrit 34.3L , Mean Corpuscular Volume 95, Mean Corpuscular Hemoglobin 30.8, Mean Corpuscular Hemoglobin Concent 32.4, Red Cell Distribution Width 14.1, Platelet Count 200, Mean Platelet Volume 7.4, Neutrophils (%) (Auto) 79.0H, Lymphocytes (%) (Auto) 14.7L, Monocytes (%) (Auto) 5.5, Eosinophils (%) (Auto) 0.0, Basophils (%) (Auto) 0.8, Sodium Level 136, Potassium Level 3.7, Chloride Level 106, Carbon Dioxide Level 28, Anion Gap 2L, Blood Urea Nitrogen 27H, Creatinine 1.1, Estimat Glomerular Filtration Rate > 60, Glucose Level 113H, Calcium Level 10.6H, Ionized Calcium (Measured) 1.46H, Phosphorus Level 2.3L, Magnesium Level 1.6L Height (Feet): 5 Height (Inches): 9.00 Weight (Pounds): 176 General Appearance: confused, agitated, combative EENT: PERRL/EOMI Neck: non-tender, supple Cardiovascular: normal rate, regular rhythm, no JVD Respiratory/Chest: lungs clear, normal breath sounds, other - on simple face mask Abdomen: normal bowel sounds, non tender, soft Extremities: other - on UE restraints Neurologic: veneer measurer II-XII grossly normal, other - confused Skin: normal pigmentation, warm/dry Assessment/Plan Assessment/Plan: Mr. Blum is a 79M with PMH of Dementia, COPD, and HTN who presents from [facility] for chest pain, weakness. 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 # Hypercalcemia 2/2 Malignancy (MM) vs vs paraneoplastic syndrome ( squamous cell cancer) # Acute vs Chronic Encephalopathy 2/2 Hypercalcemia, worsening Parkinson/dementia # Atypical Chest Pain w/ ACS r/o # New vs Paroxsymal Afib # Pulmonary HTN likely Class 3 # New vs Chronic HFpEF 2/2 ischemic vs non-ischemic vs tachyarrhythmia induced cardiomyopathy - compensated # Chronic Respiratory Failure on home O2 # Normocytic Anemia 2/2 ACD vs DEYANIRA # Hx of COPD # Hx of Dementia # ?Parkinson's related dementia # Essential HTN P: - hemodynamically stable - overnight switchee to simple mask due to desaturation, Keep O2 > 88% - duonebs prn - f/u CXR - f/u Biopsy results of lung mass - outpatient PET per heme/onc - ECHO: EF 60%, mild diastolic dysfunction, RSVP 65 - ekg: afib w/o RVR - CHADVASC: 4 - Has-bled: 2 - keep K > 4, Mg > 2 - metoprolol 25 mg BID, defer anticoags to cardio - monitor renal function - s/p Pamidronate - off fluids, lasix - calcium improving - f/u SPEP, Immunofixation, LDH, B2 microglobulin - consult Dr. Chester, Pulm, recs appreciated - consult Dr. Otero, Cardio, recs appreciated - consult Dr. Laura, Heme/onc, recs appreciated - CM/SW - tried calling son and daughter Yusuf and Homer nava to discuss snf goals of care on both home and cell numbers, however, unable to reach them. Will continue to try. CODE: Full Diet: Cardio GI: none DVT: Heparin 5000U BID Dispo: f/u biopsy results, and SW for POA and medical decision making; d/c SNF once stable Time spent on this encounter was 39 minutes which included 21 minutes of counseling and care coordination. I discussed with the nurse at bedside. Time of note may not reflect time patient was seen. Indio Gunn D.O Jul 28, 2020 12:43
--- NOTE | 2020-07-28 15:11 | Cardiology Report ---
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
--- NOTE | 2020-07-28 16:25 | NUR ---
PT note Patient is now on venturi mask. Per RN, patient has been desaturating since last night. Will hold physical therapy today; check again in AM.
--- NOTE | 2020-07-28 19:09 | Surgery Progress Note ---
Surgery Progress Note Subjective Additional Comments shavon cute events comfortable stable Objective Last 24 Hour Vital Signs Date Time Temp Pulse Resp B/P (MAP) Pulse Ox O2 Delivery O2 Flow Rate FiO2 07/28/20 16:00 98.6 79 20 157/71 (99) 98 07/28/20 12:00 98.2 85 20 135/85 (102) 98 07/28/20 09:05 85 136/97 07/28/20 09:00 Nasal Cannula 2.0 07/28/20 08:00 97.9 85 19 136/97 (110) 95 07/28/20 04:00 99.0 77 24 159/81 (107) 95 07/28/20 00:00 97.7 81 24 157/79 (105) 94 07/27/20 21:01 79 159/82 07/27/20 21:00 Nasal Cannula 2.0 07/27/20 20:00 98.1 79 20 159/82 (107) 94 I&O Intake and Output 07/27/20 07/28/20 19:00 07:00 Intake Total 880 ml Balance 880 ml Intake Oral 480 ml IV Total 400 ml # Voids 1 Cardiovascular: RSR Respiratory: decreased breath sounds Abdomen: non-tender, present bowel sounds Extremities: no edema, no tenderness, no cyanosis Laboratory Tests Test 07/28/20 08:50 White Blood Count 9.8 K/UL (4.8-10.8) Red Blood Count 3.61 M/UL (4.70-6.10) L Hemoglobin 11.1 G/DL (14.2-18.0) L Hematocrit 34.3 % (42.0-52.0) L Mean Corpuscular Volume 95 FL (80-99) Mean Corpuscular Hemoglobin 30.8 PG (27.0-31.0) Mean Corpuscular Hemoglobin Concent 32.4 G/DL (32.0-36.0) Red Cell Distribution Width 14.1 % (11.6-14.8) Platelet Count 200 K/UL (150-450) Mean Platelet Volume 7.4 FL (6.5-10.1) Neutrophils (%) (Auto) 79.0 % (45.0-75.0) H Lymphocytes (%) (Auto) 14.7 % (20.0-45.0) L Monocytes (%) (Auto) 5.5 % (1.0-10.0) Eosinophils (%) (Auto) 0.0 % (0.0-3.0) Basophils (%) (Auto) 0.8 % (0.0-2.0) Sodium Level 136 MMOL/L (136-145) Potassium Level 3.7 MMOL/L (3.5-5.1) Chloride Level 106 MMOL/L (98-107) Carbon Dioxide Level 28 MMOL/L (21-32) Anion Gap 2 mmol/L (5-15) L Blood Urea Nitrogen 27 mg/dL (7-18) H Creatinine 1.1 MG/DL (0.55-1.30) Estimat Glomerular Filtration Rate > 60 mL/min (>60) Glucose Level 113 MG/DL (74-106) H Calcium Level 10.6 MG/DL (8.5-10.1) H Ionized Calcium (Measured) 1.46 mmol/L (1.10-1.35) H Phosphorus Level 2.3 MG/DL (2.5-4.9) L Magnesium Level 1.6 MG/DL (1.8-2.4) L Plan Problems: (1) Abdominal pain (2) Lung mass Assessment & Plan: ct guided biopsy pending path likely neoplasm Prior imaging studies reviewed. Emergency physician consent was on the chart, improved mild risk management. Procedural timeout performed. Localizing spiral acquisitions obtained through the chest. Intended puncture site was marked, sterilely prepped and draped. Local anesthesia with 1% lidocaine. Under CT visualization, a 17-gauge guide needle was advanced into the periphery of the target lesion. Total 3 needle passes then made using coaxially inserted 18-gauge automated biopsy gun. Specimens placed in formalin, submitted to pathology. Follow-up CT images demonstrated a small amount of air within the target lesion, and a small superficial hematoma at the puncture site. The patient otherwise tolerated the procedure w ell, without immediate complication. Total dose length product 900 mGycm. CTDIvol(s) 4, 6.7 x 9 mGy. Radiation dose was minimized using automated exposure control Comparison: none Findings: Intraoperative images document successful needle placement into the target lesion. Final images demonstrate small superficial hematoma at the puncture site Impression: Apparently successful right lung mass biopsy, as described. Final pathology pending The pulmonary arteries are well-opacified. No intraluminal filling defects or other findings to suggest acute pulmonary embolus are evident. The main pulmonary artery is dilated, measuring 4.3 cm in diameter, and the right and left pulmonary arteries are also dilated. The ascending thoracic aorta is ectatic although not frankly aneurysmal, measuring up to 4.3 cm in diameter. There is a mass in the right upper lobe. This demonstrates peripheral enhancement, central attenuations just above necrosis. This measures 7 x 6.5 x 7 cm. There is right hilar adenopathy, with multiple nodes in the right hilum, largest measuring 4 cm in diameter, also demonstrating some central low-attenuation. There is also mediastinal lymphadenopathy, the largest precarinal node measuring 3.7 cm long axis dimension. The lymphadenopathy results in mild narrowing of some of the segmental pulmonary arteries. The lungs are hyperinflated. There is centrilobular emphysema and bilateral bullous changes, the latter predominantly in the upper lobes but with also considerable mostly interstitial bullae in the lower lobes. Areas of scarring are demonstrated bilaterally. There is a small left pleural effusion No infiltrates are de monstrated. The heart size is normal. There is a pericardial effusion mostly anteriorly which measures up to 11 mm in thickness. The included thyroid is unremarkable. There is bilateral gynecomastia. There is diffuse mild edema of the subcutaneous fat. Please refer to report of abdominal pelvic CT performed the same time for findings in the upper abdomen. Impression: Negative for evidence of acute pulmonary embolus or other acute pulmonary pathology. 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 Pericardial effusion Incidental finding of bilateral gynecomastia Evidence of mild anasarca, with diffuse edema of the subcutaneous fat. (3) Chest pain Pedro Burton Jul 28, 2020 19:09
--- NOTE | 2020-07-28 19:18 | NUR ---
NURSE HAND-OFF: Important Events on Shift:[VENTURI MASK 31%, 6L; DOING BETTER WITH VENTURI MASK; ABNORMAL LABS CONVEYED AND NEW ORDER OBTAINED;KEPT HOB 30 DEGREES ] Patient Status: [IMPROVING] Diet: [CARDIAC ] Pending Orders: [CXR; LABS] Pending Results/Labs:[IN AM] Pending MD notification:[] Latest Vital Signs: Temperature 98.6 , Pulse 79 , B/P 157 /71 , Respiratory Rate 20 , O2 SAT 98 , Nasal Cannula, O2 Flow Rate 2.0 . Vital Sign Comment: [] Latest Knox Fall Score: 75 Fall Risk: High Risk Safety Measures: Call light Within Reach, Bed Alarm Zone 2, Side Rails Side Rails x3, Bed position Low and Locked. Fall Precautions: Yellow Socks Yellow Gown Door Sign Patient Fall Education Report given to [JESUS].
--- NOTE | 2020-07-28 19:27 | NUR ---
NURSE NOTES: Patient in bed, awake and confused. On venturi mask 6L with no signs of distress or SOB. Bilat soft wrist restraints in progress for patient safety, no swelling, skin intact, pulses palpable. IV intact and patent. Condom cath in place. Bed locked and in lowest position. Call light in reach. Bed alarm on. Will continue plan of care.
[2020-07-28] MEDS: Atorvastatin 80mg tab ORAL SCH (21:28)
[2020-07-28] MEDS ORDERED: Varibar Thin Liquid powder 148gm MC PRN (22:45)
[2020-07-28] MEDS ORDERED: Varibar Pudding 230ml MC PRN (22:45)
[2020-07-28] MEDS ORDERED: Varibar Nectar 240ml MC PRN (22:45)
[2020-07-28] MEDS ORDERED: Varibar Honey 250ml MC PRN (22:45)
--- NOTE | 2020-07-28 22:49 | NUR ---
NURSE NOTES: Patient noted to have difficulty following commands to swallow during medication administration. Patient currently on pureed-moist. Swallow eval ordered per protocol. Spoke with Dr. Gunn who ordered the patient to be NPO until swallow eval. Will continue to monitor and follow plan of care.
[2020-07-29 04:00] VITALS: BP 151/87
--- NOTE | 2020-07-29 07:13 | Hematology/Onc Progress Note ---
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) --> recommend a ct guided biopsy 07/26/20 done --> also r/o mets with ct a/p-->unremarkable --> PET recommend outpatient --> tumor markers have been ordered # Hypercalcemia likely due to maligancacy --> ivfs as needed, zometa/pamidronate if remains elevated --> lasix can be given prn # New vs Paroxsymal Afib --> as per cards # Acute vs Chronic Encephalopathy 2/2 Hypercalcemia, worsening Parkinson/dementia --> r/o infectious etiology # Normocytic Anemia 2/2 ACD vs DEYANIRA --> anemia panel if lower # Pulmonary HTN likely Class 3 # ?Chronic HFpEF 2/2 ischemic vs non-ischemic vs tachyarrhythmia induced cardiomyopathy - compensated # ?Chronic Respiratory Acidosis on home O2 # Hx of COPD # Hx of Dementia # ?Parkinson's related dementia # Essential HTN Appreciate consultation and dw RN Subjective HEENT: Denies: no symptoms, eye pain, blurred vision, tearing, double vision, ear pain, ear discharge, nose pain, nose congestion, throat pain, throat swelling, mouth pain, mouth swelling, other Cardiovascular: Denies: no symptoms, chest pain, edema, irregular heart rate, lightheadedness, palpitations, syncope, other Respiratory: Denies: no symptoms, cough, shortness of breath, SOB with excertion, SOB at rest, sputum, wheezing, other Gastrointestinal/Abdominal: Denies: no symptoms, abdomen distended, abdominal pain, black stools, tarry stools, blood in stool, constipated, diarrhea, difficulty swallowing, nausea, poor appetite, poor fluid intake, rectal bleeding, vomiting, other Genitourinary: Denies: no symptoms, burning, discharge, frequency, flank pain, hematuria, incontinence, pain, urgency, other Neurologic/Psychiatric: Denies: no symptoms, anxiety, depressed, emotional problems, headache, numbness, paresthesia, pre-existing deficit, seizure, tingling, tremors, weakness, other Endocrine: Denies: no symptoms, excessive sweating, flushing, intolerance to cold, intolerance to heat, increased hunger, increased thirst, increased urine, unexplained weight gain, unexplained weight loss, other Hematologic/Lymphatic: Denies: no symptoms, anemia, easy bleeding, easy bruisin g, adenopathy, other Allergies: Coded Allergies: No Known Allergies (Unverified , 07/24/20) Subjective 07/28 on restraints, on 14L on venturi mask, no bleeding, meds noted, hgb 10.5, biopsy done 07/26 07/29 on restraints, venturi mask, labs have been reviewed, meds noted Objective Objective Current Medications Medications (Trade) Dose Ordered Sig/Jordan Route PRN Reason Start Time Stop Time Status Last Admin Dose Admin Acetaminophen (Tylenol) 650 mg Q4H PRN ORAL Mild Pain (Pain Scale 1-3) 07/24/20 22:00 08/23/20 21:59 Acetaminophen/ Hydrocodone Bitart ([place] 5/325) 1 tab Q4H PRN ORAL Moderate Pain (Pain Scale 4-6) 07/24/20 22:00 07/31/20 21:59 Albuterol/ Ipratropium (Albuterol/ Ipratropium) 3 ml Q4H PRN HHN Shortness of Breath 07/25/20 13:15 07/30/20 13:14 Aspirin (ASA) 81 mg DAILY ORAL 07/25/20 09:00 09/08/20 08:59 07/28/20 09:05 Atorvastatin Calcium (Lipitor) 80 mg BEDTIME ORAL 07/25/20 21:00 10/23/20 20:59 07/28/20 21:28 Barium Sulfate (Varibar Honey) 250 ml NOW PRN MC RAD 07/28/20 22:45 07/31/20 22:31 Barium Sulfate (Varibar Filley) 240 ml NOW PRN MC RAD 07/28/20 22:45 07/31/20 22:31 Barium Sulfate (Varibar Pudding) 230 ml NOW PRN MC RAD 07/28/20 22:45 07/31/20 22:31 Barium Sulfate (Varibar Thin Liquid powder) 148 gm NOW PRN MC RAD 07/28/20 22:45 07/31/20 22:31 Carbidopa/Levodopa (Sinemet 10/100) 1 tab THREE TIMES A DAY ORAL 07/26/20 18:00 08/25/20 17:59 07/28/20 17:07 Dexamethasone Sodium Phosphate (Decadron 4mg/ml vial) 2 mg Q6HR IVP 07/28/20 12:00 10/23/20 11:59 07/29/20 06:15 Heparin Sodium (Porcine) (Heparin 5000 units/ml) 5,000 units EVERY 12 HOURS SUBQ 07/25/20 21:00 09/08/20 20:59 07/28/20 21:40 Hydralazine HCl (Apresoline) 25 mg Q6HR PRN ORAL For High Blood Pressure >170 07/25/20 12:45 10/23/20 12:44 Metoprolol Tartrate (Lopressor) 25 mg Q12HR ORAL 07/25/20 21:00 10/23/20 20:59 07/28/20 21:29 Morphine Sulfate (Morphine Sulfate) 4 mg Q4H PRN IVP Severe Pain (Pain Scale 7-10) 07/24/20 22:00 07/31/20 21:59 07/25/20 15:39 Ondansetron HCl (Zofran) 4 mg Q4H PRN IVP Nausea & Vomiting 07/24/20 22:00 08/23/20 21:59 Quetiapine Fumarate (SEROqueL) 50 mg BEDTIME ORAL 07/26/20 21:00 09/09/20 20:59 07/28/20 21:29 Last 24 Hour Vital Signs Date Time Temp Pulse Resp B/P (MAP) Pulse Ox O2 Delivery O2 Flow Rate FiO2 07/29/20 04:00 97.5 78 20 151/87 (108) 93 07/28/20 23:54 97.6 82 19 148/93 (111) 98 07/28/20 21:29 86 165/87 07/28/20 21:00 Venturi Mask 6.0 07/28/20 20:00 98.0 86 18 165/87 (113) 92 07/28/20 16:00 98.6 79 20 157/71 (99) 98 07/28/20 12:00 98.2 85 20 135/85 (102) 98 07/28/20 09:05 85 136/97 07/28/20 09:00 Nasal Cannula 2.0 07/28/20 08:00 97.9 85 19 136/97 (110) 95 07/28/20 04:00 99.0 77 24 159/81 (107) 95 07/28/20 00:00 97.7 81 24 157/79 (105) 94 07/27/20 21:01 79 159/82 07/27/20 21:00 Nasal Cannula 2.0 07/27/20 20:00 98.1 79 20 159/82 (107) 94 07/27/20 17:03 94 07/27/20 17:00 98.1 90 18 129/86 (100) 78 07/27/20 16:55 98.1 90 18 129/86 (100) 78 07/27/20 13:10 98.2 88 21 126/82 (97) 98 07/27/20 12:00 98.8 87 20 121/75 (90) 100 07/27/20 09:18 63 121/75 07/27/20 09:00 Nasal Cannula 2.0 07/27/20 08:00 58 07/27/20 08:00 98.8 87 20 121/75 (90) 100 Intake and Output 07/28/20 07/29/20 19:00 07:00 Intake Total 150 ml Balance 150 ml Intake Oral 150 ml # Voids 2 Labs Test 07/27/20 13:20 07/27/20 16:46 07/28/20 08:50 White Blood Count 9.9 K/UL (4.8-10.8) 9.8 K/UL (4.8-10.8) Red Blood Count 3.39 M/UL (4.70-6.10) 3.61 M/UL (4.70-6.10) Hemoglobin 10.5 G/DL (14.2-18.0) 11.1 G/DL (14.2-18.0) Hematocrit 32.3 % (42.0-52.0) 34.3 % (42.0-52.0) Mean Corpuscular Volume 95 FL (80-99) 95 FL (80-99) Mean Corpuscular Hemoglobin 30.9 PG (27.0-31.0) 30.8 PG (27.0-31.0) Mean Corpuscular Hemoglobin Concent 32.4 G/DL (32.0-36.0) 32.4 G/DL (32.0-36.0) Red Cell Distribution Width 13.9 % (11.6-14.8) 14.1 % (11.6-14.8) Platelet Count 194 K/UL (150-450) 200 K/UL (150-450) Mean Platelet Volume 6.8 FL (6.5-10.1) 7.4 FL (6.5-10.1) Neutrophils (%) (Auto) 75.4 % (45.0-75.0) 79.0 % (45.0-75.0) Lymphocytes (%) (Auto) 17.1 % (20.0-45.0) 14.7 % (20.0-45.0) Monocytes (%) (Auto) 6.9 % (1.0-10.0) 5.5 % (1.0-10.0) Eosinophils (%) (Auto) 0.0 % (0.0-3.0) 0.0 % (0.0-3.0) Basophils (%) (Auto) 0.7 % (0.0-2.0) 0.8 % (0.0-2.0) Sodium Level 136 MMOL/L (136-145) 136 MMOL/L (136-145) Potassium Level 4.3 MMOL/L (3.5-5.1) 3.7 MMOL/L (3.5-5.1) Chloride Level 105 MMOL/L (98-107) 106 MMOL/L (98-107) Carbon Dioxide Level 27 MMOL/L (21-32) 28 MMOL/L (21-32) Anion Gap 5 mmol/L (5-15) 2 mmol/L (5-15) Blood Urea Nitrogen 29 mg/dL (7-18) 27 mg/dL (7-18) Creatinine 1.3 MG/DL (0.55-1.30) 1.1 MG/DL (0.55-1.30) Estimat Glomerular Filtration Rate > 60 mL/min (>60) > 60 mL/min (>60) Glucose Level 121 MG/DL (74-106) 113 MG/DL (74-106) Calcium Level 11.7 MG/DL (8.5-10.1) 10.6 MG/DL (8.5-10.1) Ionized Calcium (Measured) 1.55 mmol/L (1.10-1.35) 1.46 mmol/L (1.10-1.35) Phosphorus Level 2.5 MG/DL (2.5-4.9) 2.3 MG/DL (2.5-4.9) Magnesium Level 1.4 MG/DL (1.8-2.4) 1.6 MG/DL (1.8-2.4) POC Whole Blood Glucose 157 MG/DL (74-106) Height (Feet): 5 Height (Inches): 9.00 Weight (Pounds): 176 Objective Physical Exam General appearance: alert, cooperative, no distress Heent: Normocephalic, without obvious abnormality, atraumatic, EOM's intact. Fundi benign supple, symmetrical, trachea midline, no adenopathy Lungs: clear to auscultation bilaterally CV: irr irr, S1, S2 normal, no murmur, click, rub or gallop Abd: soft, non-tender. Bowel sounds normal Extremities: extremities normal, no cce Pulses: 2+ and symmetric Skin: Skin color, texture, turgor normal Neurologic: Grossly normal Al Laura MD Jul 29, 2020 07:12
--- NOTE | 2020-07-29 07:18 | NUR ---
NURSE HAND-OFF: Important Events on Shift: NPO for swallow eval Patient Status: Stable Diet: NPO Pending Orders: CXR 07/29 Pending Results/Labs: Phos, mag, BMP, ionized Ca Pending MD notification: N/A Latest Vital Signs: Temperature 97.5 , Pulse 78 , B/P 151 /87 , Respiratory Rate 20 , O2 SAT 93 , Venturi Mask, O2 Flow Rate 6.0 . Vital Sign Comment: N/A Latest Knox Fall Score: 75 Fall Risk: High Risk Safety Measures: Call light Within Reach, Bed Alarm Zone 2, Side Rails Side Rails x3, Bed position Low and Locked. Fall Precautions: Yellow Socks Yellow Gown Door Sign Patient Fall Education Report given to FRANCISCO JAVIER Loya.
--- NOTE | 2020-07-29 07:25 | NUR ---
NURSE NOTES: RECEIVED PATIENT A/A/OX1, CONFUSED. RESPONSE TO VOICE AND TACTILE STIMULI. ON VENTURI MASK 31% 6L WITH HOB ELEVATED. NPO XCEPT MEDS. NO ACUTE RESP DISTRESS NOTED. INCONTINENT X2. PIV PATENT AND INTACT. SALINE LOCK. ON BILATERAL SOFT WRISTS RESTRAINTS FOR SAFETY. KEPT BED IN THE LOWEST POSITION. SIDERAILS ARE UP X3. BED BRAKES ENGAGED AND LOCK MODE @ ALL TIMES. WILL CONT TO MONITOR.
[2020-07-29 08:00] VITALS: BP 145/76
[2020-07-29 08:10] LABS: ANION GAP 2 mmol/L (5-15); BLOOD UREA NITROGEN 30 mg/dL (7-18); CALCIUM 10.4 MG/DL (8.5-10.1); CARBON DIOXIDE 31 MMOL/L (21-32); CHLORIDE 103 MMOL/L (98-107); CREATININE 1.1 MG/DL (0.55-1.30); PHOSPHORUS 2.2 MG/DL (2.5-4.9); POTASSIUM 3.4 MMOL/L (3.5-5.1); SODIUM 136 MMOL/L (136-145)
--- NOTE | 2020-07-29 08:30 | NUR ---
NURSE NOTES: NOT ABLE TO TAKE MEDS STARTED TO COUGH. PATIENT IS HIGH RISK FOR ASPIRATION. KEPT HOB ELEVATED. WILL CONT TO MONITOR
[2020-07-29] MEDS: Aspirin Baby 81mg ORAL SCH (08:50)
[2020-07-29] MEDS: Levodopa/Carbidopa 10/100 tab ORAL SCH ×3 (08:51→17:42)
[2020-07-29] MEDS: Heparin 5000 units/ml inj SUBQ SCH ×2 (08:51→21:36)
--- NOTE | 2020-07-29 09:28 | General Progress Note ---
Subjective ROS Limited/Unobtainable: Yes - Patient with advanced Parkinson's/dementia unable to follow any current commands or answer question appropriately Allergies: Coded Allergies: No Known Allergies (Unverified , 07/24/20) Subjective No acute events overnight. Patient still on simple mask, titrated down to 6 L. No acute distress. Tremors less severe today. Objective Last 24 Hour Vital Signs Date Time Temp Pulse Resp B/P (MAP) Pulse Ox O2 Delivery O2 Flow Rate FiO2 07/29/20 08:51 67 145/76 07/29/20 08:00 97.8 67 18 145/76 (99) 98 07/29/20 07:56 96 20 98 Nasal Cannula 2.0 28 07/29/20 04:00 97.5 78 20 151/87 (108) 93 07/28/20 23:54 97.6 82 19 148/93 (111) 98 07/28/20 21:29 86 165/87 07/28/20 21:00 Venturi Mask 6.0 07/28/20 20:00 98.0 86 18 165/87 (113) 92 07/28/20 16:00 98.6 79 20 157/71 (99) 98 07/28/20 12:00 98.2 85 20 135/85 (102) 98 Intake and Output 07/28/20 07/29/20 19:00 07:00 Intake Total 150 ml Balance 150 ml Intake Oral 150 ml # Voids 2 Laboratory Tests 07/29/20 07:20: Sodium Level 136, Potassium Level 3.4L, Chloride Level 103, Carbon Dioxide Level 31, Anion Gap 2L, Blood Urea Nitrogen 30H, Creatinine 1.1, Estimat Glomerular Filtration Rate > 60, Glucose Level 113H, Calcium Level 10.4H, Ionized Calcium (Measured) 1.39H, Phosphorus Level 2.2L, Magnesium Level 1.6L Height (Feet): 5 Height (Inches): 9.00 Weight (Pounds): 176 General Appearance: confused, mild distress EENT: PERRL/EOMI Neck: non-tender Cardiovascular: normal rate, regular rhythm, no JVD Respiratory/Chest: chest wall non-tender, lungs clear, normal breath sounds Abdomen: normal bowel sounds, non tender, soft Extremities: other - In restraints Edema: no edema noted Arm (L), no edema noted Arm (R), no edema noted Leg (L), no edema noted Leg (R), no edema noted Pedal (L), no edema noted Pedal (R), no edema noted Generalized 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 Blum is a 79M with PMH of Dementia, COPD, and HTN who presents from [facility] for chest pain, weakness. 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 # Hypercalcemia 2/2 Malignancy (MM) vs vs paraneoplastic syndrome ( squamous cell cancer)improving # Acute vs Chronic Encephalopathy 2/2 Hypercalcemia, worsening Parkinson/dementia # Atypical Chest Pain w/ ACS r/o # New vs Paroxsymal Afib # Pulmonary HTN likely Class 3 # New vs Chronic HFpEF 2/2 ischemic vs non-ischemic vs tachyarrhythmia induced cardiomyopathy - compensated # Chronic Respiratory Failure on home O2 # Normocytic Anemia 2/2 ACD vs DEYANIRA # Hx of COPD # Hx of Dementia # ?Parkinson's related dementia # Essential HTN P: - hemodynamically stable - overnight switchee to simple mask due to desaturation, Keep O2 > 88% - duonebs prn - f/u Biopsy results of lung mass - outpatient PET per heme/onc - ECHO: EF 60%, mild diastolic dysfunction, RSVP 65 - CHADVASC: 4, pericardial no anticoagulation due to high bleeding risk, continue aspirin - keep K > 4, Mg > 2 - metoprolol 25 mg BID - monitor renal function - s/p Pamidronate - off fluids, lasix - calcium improving - f/u SPEP, Immunofixation, LDH, B2 microglobulin Follow-up speech and swallow evaluation, currently n.p.o. - consult Dr. Chester, Pulm, recs appreciated - consult Dr. Otero, Cardio, recs appreciated - consult Dr. Laura, Heme/onc, recs appreciated - CM/SW - tried calling son and daughter Yusuf and Homer nava to discuss senior care goals of care on both home and cell numbers, however, unable to reach them. Will continue to try. CODE: Full Diet: N.p.o. until swallow studies GI: none DVT: Heparin 5000U BID Dispo: f/u biopsy results, and SW for POA and medical decision making; d/c SNF once stable Time spent on this encounter was 31 minutes which included 21 minutes of cou nseling and care coordination. I discussed with the nurse at bedside. Time of note may not reflect time patient was seen. Indio Gunn D.O Jul 29, 2020 09:28
--- NOTE | 2020-07-29 09:58 | Cardiology Report ---
APPROVED REPORT EXAM: Two-dimensional and M-mode echocardiogram with Doppler and color Doppler. INDICATION Chest Pain M-Mode DIMENSIONS IVSd0.7 (0.7-1.1cm)Left Atrium (MM)4.8 (1.6-4.0cm) LVDd5.1 (3.5-5.6cm)Aortic Root3.5 (2.0-3.7cm) PWd1.1 (0.7-1.1cm)Aortic Cusp Exc.2.2 (1.5-2.0cm) IVSs1.3 cmEPSS1.0 (>1.0cm) LVDs3.0 (2.5-4.0cm) PWs1.6 cm <Conclusion> Normal left ventricular chamber size, systolic function and wall motion. Left ventricular ejection fraction estimated to be 60 %. No left ventricular hypertrophy. Anterior Echo-free space, may be due to pericardial fat or effusion. All other cardiac chamber sizes are within normal limits. Moderate focal aortic valve sclerosis with adequate cusp excursion. Thickened mitral valve leaflets with normal excursion. Mitral annulus and aortic root calcification. Normal pulmonic valve structure. Normal tricuspid valve structure. IVC not obtainable. A color flow and spectral Doppler study was performed and revealed: Mild aortic regurgitation. Moderate mitral regurgitation. Mitral diastolic velocities suggest reduced left ventricular relaxation c/w mild LV diastolic dysfunction (Grade I ). Moderate tricuspid regurgitation. Tricuspid systolic velocities suggests peak right ventricular systolic pressure of 65 mmHg, consistent with severe pulmonary hypertension. No pulmonic regurgitation present.
--- NOTE | 2020-07-29 10:04 | Pulmonology Progress Note ---
Subjective ROS Limited/Unobtainable: Yes - Patient with advanced Parkinson's/dementia unable to follow any current commands or answer question appropriately Interval Events: Tremolous, requiring increased FiO2 Constitutional: Reports: no symptoms HEENT: Repors: no symptoms Respiratory: Reports: no symptoms Cardiovascular: Reports: no symptoms Gastrointestinal/Abdominal: Reports: no symptoms Genitourinary: Reports: no symptoms Allergies: Coded Allergies: No Known Allergies (Unverified , 07/24/20) Objective Last 24 Hour Vital Signs Date Time Temp Pulse Resp B/P (MAP) Pulse Ox O2 Delivery O2 Flow Rate FiO2 07/29/20 08:51 67 145/76 07/29/20 08:00 97.8 67 18 145/76 (99) 98 07/29/20 07:56 96 20 98 Nasal Cannula 2.0 28 07/29/20 04:00 97.5 78 20 151/87 (108) 93 07/28/20 23:54 97.6 82 19 148/93 (111) 98 07/28/20 21:29 86 165/87 07/28/20 21:00 Venturi Mask 6.0 07/28/20 20:00 98.0 86 18 165/87 (113) 92 07/28/20 16:00 98.6 79 20 157/71 (99) 98 07/28/20 12:00 98.2 85 20 135/85 (102) 98 Intake and Output 07/28/20 07/29/20 19:00 07:00 Intake Total 150 ml Balance 150 ml Intake Oral 150 ml # Voids 2 General Appearance: no acute distress HEENT: normocephalic Respiratory: chest wall non-tender, decreased breath sounds Cardiovascular: normal peripheral pulses, normal rate Abdomen: normal bowel sounds Extremities: no cyanosis Laboratory Tests 07/29/20 07:20: Sodium Level 136, Potassium Level 3.4L, Chloride Level 103, Carbon Dioxide Level 31, Anion Gap 2L, Blood Urea Nitrogen 30H, Creatinine 1.1, Estimat Glomerular Filtration Rate > 60, Glucose Level 113H, Calcium Level 10.4H, Ionized Calcium (Measured) 1.39H, Phosphorus Level 2.2L, Magnesium Level 1.6L Current Medications Medications (Trade) Dose Ordered Sig/Jordan Route PRN Reason Start Time Stop Time Status Last Admin Dose Admin Acetaminophen (Tylenol) 650 mg Q4H PRN ORAL Mild Pain (Pain Scale 1-3) 07/24/20 22:00 08/23/20 21:59 Acetaminophen/ Hydrocodone Bitart ([place] 5/325) 1 tab Q4H PRN ORAL Moderate Pain (Pain Scale 4-6) 07/24/20 22:00 07/31/20 21:59 Albuterol/ Ipratropium (Albuterol/ Ipratropium) 3 ml Q4H PRN HHN Shortness of Breath 07/25/20 13:15 07/30/20 13:14 Aspirin (ASA) 81 mg DAILY ORAL 07/25/20 09:00 09/08/20 08:59 07/28/20 09:05 Atorvastatin Calcium (Lipitor) 80 mg BEDTIME ORAL 07/25/20 21:00 10/23/20 20:59 07/28/20 21:28 Barium Sulfate (Varibar Honey) 250 ml NOW PRN MC RAD 07/28/20 22:45 07/31/20 22:31 Barium Sulfate (Varibar Babcock) 240 ml NOW PRN MC RAD 07/28/20 22:45 07/31/20 22:31 Barium Sulfate (Varibar Pudding) 230 ml NOW PRN MC RAD 07/28/20 22:45 07/31/20 22:31 Barium Sulfate (Varibar Thin Liquid powder) 148 gm NOW PRN MC RAD 07/28/20 22:45 07/31/20 22:31 Carbidopa/Levodopa (Sinemet 10/100) 1 tab THREE TIMES A DAY ORAL 07/26/20 18:00 08/25/20 17:59 07/28/20 17:07 Dexamethasone Sodium Phosphate (Decadron 4mg/ml vial) 2 mg Q6HR IVP 07/28/20 12:00 10/23/20 11:59 07/29/20 06:15 Heparin Sodium (Porcine) (Heparin 5000 units/ml) 5,000 units EVERY 12 HOURS SUBQ 07/25/20 21:00 09/08/20 20:59 07/28/20 21:40 Hydralazine HCl (Apresoline) 25 mg Q6HR PRN ORAL For High Blood Pressure >170 07/25/20 12:45 10/23/20 12:44 Magnesium Sulfate 100 ml @ 100 mls/hr Q1H IVPB 07/29/20 10:00 07/29/20 11:59 Metoprolol Tartrate (Lopressor) 25 mg Q12HR ORAL 07/25/20 21:00 10/23/20 20:59 07/28/20 21:29 Morphine Sulfate (Morphine Sulfate) 4 mg Q4H PRN IVP Severe Pain (Pain Scale 7-10) 07/24/20 22:00 07/31/20 21:59 07/25/20 15:39 Ondansetron HCl (Zofran) 4 mg Q4H PRN IVP Nausea & Vomiting 07/24/20 22:00 08/23/20 21:59 Potassium Phosphate 250 ml @ 62.5 mls/hr Q4H IVPB 07/29/20 10:30 07/29/20 18:29 Quetiapine Fumarate (SEROqueL) 50 mg BEDTIME ORAL 07/26/20 21:00 09/09/20 20:59 07/28/20 21:29 Assessment/Plan Assessment/Plan IMPRESSION: 1. Hypercalcemia, suspect secondary to malignancy. 2. Lung mass. 3. Emphysema. 4. Hypertension. DISCUSSION: Off IV fluid hydration. Will initiate maintainance fluids as pt is NPO S/P CT-guided lung biopsy. Continue Decadron Continue O2 Minimize sedation Oly Lara Omar Syed MD Jul 29, 2020 10:04
--- NOTE | 2020-07-29 10:10 | NUR ---
NURSE NOTES: UPDATED DR HARRISON WITH CURRENT PATIENT'S CONDITION. WILL CONT TO MONITOR
--- NOTE | 2020-07-29 10:47 | NUR ---
NURSE NOTES: INITIATED WITH IVF AND INFUSING WELL. DR IVERSON MADE AWARE AND PLACED ORDER FOR ABNORMAL LABS TODAY. K+3.4 AND MG 1.6. WILL CARRIED OUT AND CONT THE PLAN OF CARE.
[2020-07-29] MEDS: Potassium Phosphate 15mm/250ml 250 ML IVPB SCH ×2 (11:58→15:51)
[2020-07-29 12:10] VITALS: BP 145/82
--- NOTE | 2020-07-29 12:24 | NUR ---
RD ASSESSMENT & RECOMMENDATIONS SEE CARE ACTIVITY FOR COMPLETE ASSESSMENT DAILY ESTIMATED NEEDS: Needs based on Pulmonary, cardiac/ 72kg 25-30 kcals/kg 7765-8801 total kcals 1-1.5 g protein/kg 72-108 g total protein 25-30 mL/kg 5569-9622 total fluid mLs NUTRITION DIAGNOSIS: Swallowing difficulty R/T dysphagia, decreased cognitive fxn, respiratory status as evidenced by currently NPO, awaiting MEDICAL OFFICE SECRETARY eval, h/o advanced Parkinson's and dementia, on venturi mask. CURRENT DIET:NPO PO DIET RECOMMENDATIONS: LOW NA/ texture per MEDICAL OFFICE SECRETARY ADDITIONAL RECOMMENDATIONS: * Calibrated bedscale wt * F/up MEDICAL OFFICE SECRETARY eval and rec: NPO as of 07/28 * Monitor PO intake and tolerance w/ diet initiation * Monitor lytes, replete as needed (low k, phos, mag) * Monitor BGs closely w/ Decadron
--- NOTE | 2020-07-29 13:42 | NUR ---
P.T Note: P.T services deferred due to O2 desaturation. Pt currently on venturi mask at 31% @ 6 l/min. Will reattempt tomorrow as condition improves.
--- NOTE | 2020-07-29 14:03 | Diagnostic Imaging Report ---
Indication: Cough Technique: One view of the chest Comparison: 07/26/2020 Findings: Less optimal inspiration currently. Previously demonstrated right lung mass is again demonstrated. Previously demonstrated diffuse interstitial prominence is unchanged. The heart size is normal. The aorta is tortuous and ectatic Impression: Unchanged, over 3 days, findings as above.
[2020-07-29 15:58] VITALS: BP 132/75
--- NOTE | 2020-07-29 16:18 | Nephrology Progress Note ---
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 # Pulmonary HTN likely Class 3 # Hypercalcemia 2/2 ?Malignancy (MM) vs vs paraneoplastic syndrome ( squamous cell cancer) vs PHPTH # ?Chronic HFpEF 2/2 ischemic vs non-ischemic vs tachyarrhythmia induced cardiomyopathy - compensated # ?Chronic Respiratory Acidosis on home O2 # Normocytic Anemia 2/2 ACD vs DEYANIRA # Hx of COPD # Hx of Dementia # ?Parkinson's related dementia # Essential HTN - S/P CT-guided lung biopsy - follow path - monitor free calcium - s/p pamindronate - trial of sinemet for tremors - pulm eval - surg eval - monitor calcium level - continue with steroids - monitor BP - avoid nephrotoxins Subjective ROS Limited/Unobtainable: Yes Subjective S/P CT-guided lung biopsy intermittently agitated and combative continues to have tremors sinemet added free calcium downtrending Objective Objective Last 24 Hour Vital Signs Date Time Temp Pulse Resp B/P (MAP) Pulse Ox O2 Delivery O2 Flow Rate FiO2 07/29/20 15:58 98.6 78 18 132/75 (94) 96 07/29/20 15:58 79 20 96 Venturi Mask 6.0 31 07/29/20 15:56 86 20 99 Venturi Mask 6.0 31 79 20 96 07/29/20 12:10 98.0 79 19 145/82 (103) 96 07/29/20 09:00 Venturi Mask 6.0 07/29/20 08:51 67 145/76 07/29/20 08:00 97.8 67 18 145/76 (99) 98 07/29/20 07:56 96 20 98 Nasal Cannula 2.0 28 07/29/20 04:00 97.5 78 20 151/87 (108) 93 07/28/20 23:54 97.6 82 19 148/93 (111) 98 07/28/20 21:29 86 165/87 07/28/20 21:00 Venturi Mask 6.0 07/28/20 20:00 98.0 86 18 165/87 (113) 92 Intake and Output 07/28/20 07/29/20 19:00 07:00 Intake Total 150 ml Balance 150 ml Intake Oral 150 ml # Voids 2 Laboratory Tests 07/29/20 07:20: Sodium Level 136, Potassium Level 3.4L, Chloride Level 103, Carbon Dioxide Level 31, Anion Gap 2L, Blood Urea Nitrogen 30H, Creatinine 1.1, Estimat Glomerular Filtration Rate > 60, Glucose Level 113H, Calcium Level 10.4H, Ionized Calcium (Measured) 1.39H, Phosphorus Level 2.2L, Magnesium Level 1.6L Height (Feet): 5 Height (Inches): 9.00 Weight (Pounds): 176 Terence Garcia M.D. Jul 29, 2020 16:18
--- NOTE | 2020-07-29 16:33 | NUR ---
CASE MANAGEMENT:REVIEW SI;PA-FIB. PULMONARY MASS. HYPERCALCEMIA. 98.6 86 20 145/82 96% 6L VENTURI MASK FIO2 @ 31% K+ 3.4 BUN 30 PHOS 2.2 MAG 1.6 IS;LASIX IV ONCE K PHOSPHATE IV DECADRON IV Q6 HEPARIN SUBQ Q12 SINEMET PO TID SWALLOW STUDY MED SURG STATUS DCP;FROM HOME
--- NOTE | 2020-07-29 17:16 | Surgery Progress Note ---
Surgery Progress Note Subjective Additional Comments no acute events labs noted exam stable no n/v breakdown noted at sacral cleft Objective Last 24 Hour Vital Signs Date Time Temp Pulse Resp B/P (MAP) Pulse Ox O2 Delivery O2 Flow Rate FiO2 07/29/20 15:58 98.6 78 18 132/75 (94) 96 07/29/20 15:58 79 20 96 Venturi Mask 6.0 31 07/29/20 15:56 86 20 99 Venturi Mask 6.0 31 79 20 96 07/29/20 12:10 98.0 79 19 145/82 (103) 96 07/29/20 09:00 Venturi Mask 6.0 07/29/20 08:51 67 145/76 07/29/20 08:00 97.8 67 18 145/76 (99) 98 07/29/20 07:56 96 20 98 Nasal Cannula 2.0 28 07/29/20 04:00 97.5 78 20 151/87 (108) 93 07/28/20 23:54 97.6 82 19 148/93 (111) 98 07/28/20 21:29 86 165/87 07/28/20 21:00 Venturi Mask 6.0 07/28/20 20:00 98.0 86 18 165/87 (113) 92 I&O Intake and Output 07/28/20 07/29/20 19:00 07:00 Intake Total 150 ml Balance 150 ml Intake Oral 150 ml # Voids 2 Dressing: dry Cardiovascular: RSR Respiratory: decreased breath sounds Abdomen: soft, flat, non-tender, present bowel sounds Extremities: no edema, no tenderness, no cyanosis Laboratory Tests Test 07/29/20 07:20 Sodium Level 136 MMOL/L (136-145) Potassium Level 3.4 MMOL/L (3.5-5.1) L Chloride Level 103 MMOL/L (98-107) Carbon Dioxide Level 31 MMOL/L (21-32) Anion Gap 2 mmol/L (5-15) L Blood Urea Nitrogen 30 mg/dL (7-18) H Creatinine 1.1 MG/DL (0.55-1.30) Estimat Glomerular Filtration Rate > 60 mL/min (>60) Glucose Level 113 MG/DL (74-106) H Calcium Level 10.4 MG/DL (8.5-10.1) H Ionized Calcium (Measured) 1.39 mmol/L (1.10-1.35) H Phosphorus Level 2.2 MG/DL (2.5-4.9) L Magnesium Level 1.6 MG/DL (1.8-2.4) L Assessment Additional Comments patient noted to have breakdown forming at sacral cleft. identified and care plan initiated. optifoam dressings applied. turn q2h off load pressure Plan Problems: (1) Abdominal pain Assessment & Plan: resolved tolerating now no complaints likely constipation (2) Lung mass Assessment & Plan: ct guided biopsy pending path likely neoplasm Prior imaging studies reviewed. Emergency physician consent was on the chart, improved mild risk management. Procedural timeout performed. Localizing spiral acquisitions obtained through the chest. Intended puncture site was marked, sterilely prepped and draped. Local anesthesia with 1% lidocaine. Under CT visualization, a 17-gauge guide needle was advanced into the periphery of the target lesion. Total 3 needle passes then made using coaxially inserted 18-gauge automated biopsy gun. Specimens placed in formalin, submitted to pathology. Follow-up CT images demonstrated a small amount of air within the target lesion, and a small superficial hematoma at the puncture site. The patient otherwise tolerated the procedure well, without immediate complication. Total dose length product 900 mGycm. CTDIvol(s) 4, 6.7 x 9 mGy. Radiation dose was minimized using automated exposure control Comparison: none Findings: Intraoperative images document successful needle placement into the target lesion. Final images demonstrate small superficial hematoma at the puncture site Impression: Apparently successful right lung mass biopsy, as described. Final pathology pending The pulmonary arteries are well-opacified. No intraluminal filling defects or other findings to suggest acute pulmonary embolus are evident. The main pulmonary artery is dilated, measuring 4.3 cm in diameter, and the right and left pulmonary arteries are also dilated. The ascending thoracic aorta is ectatic although not frankly aneurysmal, measuring up to 4.3 cm in diameter. There is a mass in the right upper lobe. This demonstrates peripheral enhancement, central attenuations just above necrosis. This measures 7 x 6.5 x 7 cm. There is right hilar adenopathy, with multiple nodes in the right hilum, largest measuring 4 cm in diameter, also demonstrating some central low-attenuation. There is also mediastinal lymphadenopathy, the largest precarinal node measuring 3.7 cm long axis dimension. The lymphadenopathy results in mild narrowing of some of the segmental pulmonary arteries. The lungs are hyperinflated. There is centrilobular emphysema and bilateral bullous changes, the latter predominantly in the upper lobes but with also considerable mostly interstitial bullae in the lower lobes. Areas of scarring are demonstrated bilaterally. There is a small left pleural effusion No infiltrates are demonstrated. The heart size is normal. There is a pericardial effusion mostly anteriorly which measures up to 11 mm in thickness. The included thyroid is unremarkable. There is bilateral gynecomastia. There is diffuse mild edema of the subcutaneous fat. Please refer to report of abdominal pelvic CT performed the same time for findings in the upper abdomen. Impression: Negative for evidence of acute pulmonary embolus or other acute pulmonary pathology. 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 Pericardial effusion Incidental finding of bilateral gynecomastia Evidence of mild anasarca, with diffuse edema of the subcutaneous fat. (3) Chest pain Pedro Burton Jul 29, 2020 17:16
--- NOTE | 2020-07-29 18:16 | NUR ---
INSURANCE CLINCALS AND REVIEW FAXED TO [facility] T: [phone] F: [phone] AND [facility] T: [phone] [id number] F: [phone] #[phone] [id number] 0001,
--- NOTE | 2020-07-29 19:01 | NUR ---
NURSE HAND-OFF: Important Events on Shift:[NPO XCEPT MEDS; REMAINED ON VENTURI MASK; MG 1.6; K+3.4 SUPPLEMENTS GIVEN ORDERED.] Patient Status: [IMPROVING] Diet: [NPO XCEPT MED] Pending Orders: [LABS] Pending Results/Labs:[IN AM] Pending MD notification:[] Latest Vital Signs: Temperature 98.6 , Pulse 79 , B/P 132 /75 , Respiratory Rate 20 , O2 SAT 96 , Venturi Mask, O2 Flow Rate 6.0 . Vital Sign Comment: [] Latest Knox Fall Score: 75 Fall Risk: High Risk Safety Measures: Call light Within Reach, Bed Alarm Zone 2, Side Rails Side Rails x3, Bed position Low and Locked. Fall Precautions: Yellow Socks Yellow Gown Door Sign Patient Fall Education Report given to [NAHOMME].
--- NOTE | 2020-07-29 19:17 | NUR ---
Speech Pathology Note (Bedside Dysphagia Evaluation) Brief Note: is a 79 year old male recently discharged from SNF to home came to ED at [facility] for atypical chest pain. He was initially oriented x 4 and was able to sing the consent for CTA thorax and chest. The findings were remarkable for 7x6.5x7 right upper lung mass with multiple lymphadenopathy and ectatic thoracic aorta.. The CT guided biopsy was performed on 07/26/2020 and results are pending. Based on daily nursing notes, he became disoriented and hypoxic on 07/25~07/26 required o2 support from 2 liter NC. He is currently on VM for increased O2 support. His current labs are fairly unremarkable and VSS. Code Status: Full Admitted PO: Regular cardiac Findings: Mr. Blum is oriented x 1. He is very impulsive and trying to get out from his bed. The clear secretion was pooled in oropharynx. I suctioned. The upper denture is fitting but lower denture appeared to be lose. His orientation/insights/organization skills are poor to participate in full examination. Given him PO trial, the bolus (apple sauce), he kept it in his mouth. He did not initiate any swallow at this time. No further PO trials were given at this time. Impression: Mr. 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 He will be likely discharging SNF. He may need a correction feeding . He remains high risk of respiratory failure based on underlying his lung disease with poor ventilation a.c with lung mass. Interpretation: 1. Dysphagia with aspiration risk Plan: 1. NPO for now LOOM INSPECTOR f/u peripherally to review the chart to determine PO readiness Leon Reyes
--- NOTE | 2020-07-29 19:26 | NUR ---
NURSE NOTES: Recieved pt awake,A&Ox1, and verbal. Pt has no cough, pain, and fever. Pt is on vent 31% 6l. Iv is intact and asymptomatic. Bed is in the lowest position,locked,alarm on and call light within reach. We will keep monitoring the pt.
[2020-07-29 20:00] VITALS: BP 157/86
[2020-07-29] MEDS: Atorvastatin 80mg tab ORAL SCH (21:37)
[2020-07-30] VITALS: BP 124/63
[2020-07-30 04:00] VITALS: BP 176/83
[2020-07-30 06:42] LABS: BASOPHILS % (AUTO) 0.9 % (0.0-2.0); HEMATOCRIT 36.1 % (42.0-52.0); HEMOGLOBIN 11.7 G/DL (14.2-18.0); LYMPHOCYTES % (AUTO) 21.8 % (20.0-45.0); MEAN CORPUSCULAR VOLUME 96 FL (80-99); MONOCYTES % (AUTO) 6.8 % (1.0-10.0); NEUTROPHILS % (AUTO) 70.5 % (45.0-75.0); PLATELET COUNT 205 K/UL (150-450); RED BLOOD COUNT 3.75 M/UL (4.70-6.10); RED CELL DISTRIBUTION WIDTH 14.4 % (11.6-14.8)
--- NOTE | 2020-07-30 06:58 | Hematology/Onc Progress Note ---
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 --> also r/o mets with ct a/p-->unremarkable --> PET recommend outpatient --> tumor markers have been ordered # Hypercalcemia likely due to maligancacy --> ivfs as needed, zometa/pamidronate if remains elevated --> lasix can be given prn # New vs Paroxsymal Afib --> as per cards # Acute vs Chronic Encephalopathy 2/2 Hypercalcemia, worsening Parkinson/dementia --> r/o infectious etiology # Normocytic Anemia 2/2 ACD vs DEYANIRA --> anemia panel if lower # Pulmonary HTN likely Class 3 # ?Chronic HFpEF 2/2 ischemic vs non-ischemic vs tachyarrhythmia induced cardiomyopathy - compensated # ?Chronic Respiratory Acidosis on home O2 # Hx of COPD # Hx of Dementia # ?Parkinson's related dementia # Essential HTN Appreciate consultation and dw RN Subjective Allergies: Coded Allergies: No Known Allergies (Unverified , 07/24/20) All Systems: reviewed and negative except above Subjective 07/28 on restraints, on 14L on venturi mask, no bleeding, meds noted, hgb 10.5, biopsy done 07/26 07/29 on restraints, venturi mask, labs have been reviewed, meds noted 07/30 on restraints, confused, is on 6l, no bleeding, labs noted Objective Objective Current Medications Medications (Trade) Dose Ordered Sig/Jordan Route PRN Reason Start Time Stop Time Status Last Admin Dose Admin Acetaminophen (Tylenol) 650 mg Q4H PRN ORAL Mild Pain (Pain Scale 1-3) 07/24/20 22:00 08/23/20 21:59 Acetaminophen/ Hydrocodone Bitart ([place] 5/325) 1 tab Q4H PRN ORAL Moderate Pain (Pain Scale 4-6) 07/24/20 22:00 07/31/20 21:59 Albuterol/ Ipratropium (Albuterol/ Ipratropium) 3 ml Q4H PRN HHN Shortness of Breath 07/25/20 13:15 07/30/20 13:14 07/29/20 15:46 Aspirin (ASA) 81 mg DAILY ORAL 07/25/20 09:00 09/08/20 08:59 07/28/20 09:05 Atorvastatin Calcium (Lipitor) 80 mg BEDTIME ORAL 07/25/20 21:00 10/23/20 20:59 07/29/20 21:37 Barium Sulfate (Varibar Honey) 250 ml NOW PRN MC RAD 07/28/20 22:45 07/31/20 22:31 Barium Sulfate (Varibar [place]) 240 ml NOW PRN MC RAD 07/28/20 22:45 07/31/20 22:31 Barium Sulfate (Varibar Pudding) 230 ml NOW PRN MC RAD 07/28/20 22:45 07/31/20 22:31 Barium Sulfate (Varibar Thin Liquid powder) 148 gm NOW PRN RAD 07/28/20 22:45 07/31/20 22:31 Carbidopa/Levodopa (Sinemet 10/100) 1 tab THREE TIMES A DAY ORAL 07/26/20 18:00 08/25/20 17:59 07/29/20 17:42 Dexamethasone Sodium Phosphate (Decadron 4mg/ml vial) 2 mg Q6HR IVP 07/28/20 12:00 10/23/20 11:59 07/30/20 05:47 Heparin Sodium (Porcine) (Heparin 5000 units/ml) 5,000 units EVERY 12 HOURS SUBQ 07/25/20 21:00 09/08/20 20:59 07/29/20 21:36 Hydralazine HCl (Apresoline) 25 mg Q6HR PRN ORAL For High Blood Pressure >170 07/25/20 12:45 10/23/20 12:44 Metoprolol Tartrate (Lopressor) 25 mg Q12HR ORAL 07/25/20 21:00 10/23/20 20:59 07/29/20 21:37 Morphine Sulfate (Morphine Sulfate) 4 mg Q4H PRN IVP Severe Pain (Pain Scale 7-10) 07/24/20 22:00 07/31/20 21:59 07/25/20 15:39 Ondansetron HCl (Zofran) 4 mg Q4H PRN IVP Nausea & Vomiting 07/24/20 22:00 08/23/20 21:59 Quetiapine Fumarate (SEROqueL) 50 mg BEDTIME ORAL 07/26/20 21:00 09/09/20 20:59 07/29/20 21:36 Last 24 Hour Vital Signs Date Time Temp Pulse Resp B/P (MAP) Pulse Ox O2 Delivery O2 Flow Rate FiO2 07/30/20 00:00 98.8 83 20 124/63 (83) 97 07/29/20 21:37 92 157/86 07/29/20 20:13 Venturi Mask 6.0 07/29/20 20:00 98.8 92 20 157/86 (109) 96 07/29/20 19:53 96 Venturi Mask 6.0 31 07/29/20 15:58 98.6 78 18 132/75 (94) 96 07/29/20 15:58 79 20 96 Venturi Mask 6.0 31 07/29/20 15:56 86 20 99 Venturi Mask 6.0 31 79 20 96 07/29/20 12:10 98.0 79 19 145/82 (103) 96 07/29/20 09:00 Venturi Mask 6.0 07/29/20 08:51 67 145/76 07/29/20 08:00 97.8 67 18 145/76 (99) 98 07/29/20 07:56 96 20 98 Nasal Cannula 2.0 28 07/29/20 04:00 97.5 78 20 151/87 (108) 93 07/28/20 23:54 97.6 82 19 148/93 (111) 98 07/28/20 21:29 86 165/87 07/28/20 21:00 Venturi Mask 6.0 07/28/20 20:00 98.0 86 18 165/87 (113) 92 07/28/20 16:00 98.6 79 20 157/71 (99) 98 07/28/20 12:00 98.2 85 20 135/85 (102) 98 07/28/20 09:05 85 136/97 07/28/20 09:00 Nasal Cannula 2.0 07/28/20 08:00 97.9 85 19 136/97 (110) 95 Intake and Output 07/29/20 07/30/20 19:00 07:00 Intake Total 575.0 ml Balance 575.0 ml IV Total 575.0 ml # Voids 1 Labs Test 07/27/20 13:20 07/27/20 16:46 07/28/20 08:50 07/29/20 07:20 White Blood Count 9.9 K/UL (4.8-10.8) 9.8 K/UL (4.8-10.8) Red Blood Count 3.39 M/UL (4.70-6.10) 3.61 M/UL (4.70-6.10) Hemoglobin 10.5 G/DL (14.2-18.0) 11.1 G/DL (14.2-18.0) Hematocrit 32.3 % (42.0-52.0) 34.3 % (42.0-52.0) Mean Corpuscular Volume 95 FL (80-99) 95 FL (80-99) Mean Corpuscular Hemoglobin 30.9 PG (27.0-31.0) 30.8 PG (27.0-31.0) Mean Corpuscular Hemoglobin Concent 32.4 G/DL (32.0-36.0) 32.4 G/DL (32.0-36.0) Red Cell Distribution Width 13.9 % (11.6-14.8) 14.1 % (11.6-14.8) Platelet Count 194 K/UL (150-450) 200 K/UL (150-450) Mean Platelet Volume 6.8 FL (6.5-10.1) 7.4 FL (6.5-10.1) Neutrophils (%) (Auto) 75.4 % (45.0-75.0) 79.0 % (45.0-75.0) Lymphocytes (%) (Auto) 17.1 % (20.0-45.0) 14.7 % (20.0-45.0) Monocytes (%) (Auto) 6.9 % (1.0-10.0) 5.5 % (1.0-10.0) Eosinophils (%) (Auto) 0.0 % (0.0-3.0) 0.0 % (0.0-3.0) Basophils (%) (Auto) 0.7 % (0.0-2.0) 0.8 % (0.0-2.0) Sodium Level 136 MMOL/L (136-145) 136 MMOL/L (136-145) 136 MMOL/L (136-145) Potassium Level 4.3 MMOL/L (3.5-5.1) 3.7 MMOL/L (3.5-5.1) 3.4 MMOL/L (3.5-5.1) Chloride Level 105 MMOL/L (98-107) 106 MMOL/L (98-107) 103 MMOL/L (98-107) Carbon Dioxide Level 27 MMOL/L (21-32) 28 MMOL/L (21-32) 31 MMOL/L (21-32) Anion Gap 5 mmol/L (5-15) 2 mmol/L (5-15) 2 mmol/L (5-15) Blood Urea Nitrogen 29 mg/dL (7-18) 27 mg/dL (7-18) 30 mg/dL (7-18) Creatinine 1.3 MG/DL (0.55-1.30) 1.1 MG/DL (0.55-1.30) 1.1 MG/DL (0.55-1.30) Estimat Glomerular Filtration Rate > 60 mL/min (>60) > 60 mL/min (>60) > 60 mL/min (>60) Glucose Level 121 MG/DL (74-106) 113 MG/DL (74-106) 113 MG/DL (74-106) Calcium Level 11.7 MG/DL (8.5-10.1) 10.6 MG/DL (8.5-10.1) 10.4 MG/DL (8.5-10.1) Ionized Calcium (Measured) 1.55 mmol/L (1.10-1.35) 1.46 mmol/L (1.10-1.35) 1.39 mmol/L (1.10-1.35) Phosphorus Level 2.5 MG/DL (2.5-4.9) 2.3 MG/DL (2.5-4.9) 2.2 MG/DL (2.5-4.9) Magnesium Level 1.4 MG/DL (1.8-2.4) 1.6 MG/DL (1.8-2.4) 1.6 MG/DL (1.8-2.4) POC Whole Blood Glucose 157 MG/DL (74-106) Test 07/30/20 06:15 White Blood Count 9.0 K/UL (4.8-10.8) Red Blood Count 3.75 M/UL (4.70-6.10) Hemoglobin 11.7 G/DL (14.2-18.0) Hematocrit 36.1 % (42.0-52.0) Mean Corpuscular Volume 96 FL (80-99) Mean Corpuscular Hemoglobin 31.2 PG (27.0-31.0) Mean Corpuscular Hemoglobin Concent 32.4 G/DL (32.0-36.0) Red Cell Distribution Width 14.4 % (11.6-14.8) Platelet Count 205 K/UL (150-450) Mean Platelet Volume 7.6 FL (6.5-10.1) Neutrophils (%) (Auto) 70.5 % (45.0-75.0) Lymphocytes (%) (Auto) 21.8 % (20.0-45.0) Monocytes (%) (Auto) 6.8 % (1.0-10.0) Eosinophils (%) (Auto) 0.0 % (0.0-3.0) Basophils (%) (Auto) 0.9 % (0.0-2.0) Height (Feet): 5 Height (Inches): 9.00 Weight (Pounds): 176 Objective Physical Exam General appearance: alert, cooperative, no distress Heent: Normocephalic, without obvious abnormality, atraumatic, EOM's intact. Fundi benign supple, symmetrical, trachea midline, no adenopathy Lungs: clear to auscultation bilaterally CV: irr irr, S1, S2 normal, no murmur, click, rub or gallop Abd: soft, non-tender. Bowel sounds normal Extremities: extremities normal, no cce Pulses: 2+ and symmetric Skin: Skin color, texture, turgor normal Neurologic: Grossly normal Al Laura MD Jul 30, 2020 06:58
[2020-07-30 07:02] LABS: ANION GAP 3 mmol/L (5-15); BLOOD UREA NITROGEN 32 mg/dL (7-18); CALCIUM 9.6 MG/DL (8.5-10.1); CARBON DIOXIDE 29 MMOL/L (21-32); CHLORIDE 107 MMOL/L (98-107); CREATININE 1.1 MG/DL (0.55-1.30); POTASSIUM 4.1 MMOL/L (3.5-5.1); SODIUM 139 MMOL/L (136-145)
--- NOTE | 2020-07-30 07:37 | NUR ---
NURSE NOTES: Report received from DC Kim. Patient awake in bed, alert and oriented x 1, no SOB, bed in lowest position with breaks engaged and alarm on, denies any pain or discomfort at this time, IV line present on left FA. On venturi mask 6L 31%. Will continue to monitor and proceed with plan of care. Call light within reach.
[2020-07-30 08:00] VITALS: BP 143/70
[2020-07-30] MEDS: Levodopa/Carbidopa 10/100 tab ORAL SCH ×3 (08:30→17:17)
[2020-07-30] MEDS: Aspirin Baby 81mg ORAL SCH (08:31)
[2020-07-30] MEDS: Heparin 5000 units/ml inj SUBQ SCH ×2 (08:32→20:33)
--- NOTE | 2020-07-30 09:45 | Pulmonology Progress Note ---
Subjective ROS Limited/Unobtainable: Yes Interval Events: CXR reviewed; unchanged Constitutional: Reports: no symptoms HEENT: Repors: no symptoms Respiratory: Reports: no symptoms Cardiovascular: Reports: no symptoms Gastrointestinal/Abdominal: Reports: no symptoms Genitourinary: Reports: no symptoms Allergies: Coded Allergies: No Known Allergies (Unverified , 07/24/20) All Systems: reviewed and negative except above Objective Last 24 Hour Vital Signs Date Time Temp Pulse Resp B/P (MAP) Pulse Ox O2 Delivery O2 Flow Rate FiO2 07/30/20 08:41 95 Venturi Mask 6.0 31 07/30/20 08:31 87 148/83 07/30/20 04:00 98.5 87 20 176/83 (114) 98 07/30/20 00:00 98.8 83 20 124/63 (83) 97 07/29/20 21:37 92 157/86 07/29/20 20:13 Venturi Mask 6.0 07/29/20 20:00 98.8 92 20 157/86 (109) 96 07/29/20 19:53 96 Venturi Mask 6.0 31 07/29/20 15:58 98.6 78 18 132/75 (94) 96 07/29/20 15:58 79 20 96 Venturi Mask 6.0 31 07/29/20 15:56 86 20 99 Venturi Mask 6.0 31 79 20 96 07/29/20 12:10 98.0 79 19 145/82 (103) 96 Intake and Output 07/29/20 07/30/20 19:00 07:00 Intake Total 575.0 ml Balance 575.0 ml IV Total 575.0 ml # Voids 1 General Appearance: no acute distress HEENT: normocephalic Respiratory: chest wall non-tender, decreased breath sounds Cardiovascular: normal peripheral pulses, normal rate Abdomen: normal bowel sounds Extremities: no cyanosis Laboratory Tests 07/30/20 06:15: White Blood Count 9.0, Red Blood Count 3.75L, Hemoglobin 11.7L, Hematocrit 36.1L , Mean Corpuscular Volume 96, Mean Corpuscular Hemoglobin 31.2H, Mean Corpu scular Hemoglobin Concent 32.4, Red Cell Distribution Width 14.4, Platelet Count 205, Mean Platelet Volume 7.6, Neutrophils (%) (Auto) 70.5, Lymphocytes (%) (Auto) 21.8, Monocytes (%) (Auto) 6.8, Eosinophils (%) (Auto) 0.0, Basophils (%) (Auto) 0.9, Sodium Level 139, Potassium Level 4.1, Chloride Level 107, Carbon Dioxide Level 29, Anion Gap 3L, Blood Urea Nitrogen 32H, Creatinine 1.1, Estimat Glomerular Filtration Rate > 60, Glucose Level 125H, Calcium Level 9.6, Phosphorus Level 3.1, Magnesium Level 2.0 Current Medications Medications (Trade) Dose Ordered Sig/Jordan Route PRN Reason Start Time Stop Time Status Last Admin Dose Admin Acetaminophen (Tylenol) 650 mg Q4H PRN ORAL Mild Pain (Pain Scale 1-3) 07/24/20 22:00 08/23/20 21:59 Acetaminophen/ Hydrocodone Bitart ([place] 5/325) 1 tab Q4H PRN ORAL Moderate Pain (Pain Scale 4-6) 07/24/20 22:00 07/31/20 21:59 Albuterol/ Ipratropium (Albuterol/ Ipratropium) 3 ml Q4H PRN HHN Shortness of Breath 07/25/20 13:15 07/30/20 13:14 07/29/20 15:46 Aspirin (ASA) 81 mg DAILY ORAL 07/25/20 09:00 09/08/20 08:59 07/30/20 08:31 Atorvastatin Calcium (Lipitor) 80 mg BEDTIME ORAL 07/25/20 21:00 10/23/20 20:59 07/29/20 21:37 Barium Sulfate (Varibar Honey) 250 ml NOW PRN MC RAD 07/28/20 22:45 07/31/20 22:31 Barium Sulfate (Varibar [place]) 240 ml NOW PRN MC RAD 07/28/20 22:45 07/31/20 22:31 Barium Sulfate (Varibar Pudding) 230 ml NOW PRN MC RAD 07/28/20 22:45 07/31/20 22:31 Barium Sulfate (Varibar Thin Liquid powder) 148 gm NOW PRN MC RAD 07/28/20 22:45 07/31/20 22:31 Carbidopa/Levodopa (Sinemet 10/100) 1 tab THREE TIMES A DAY ORAL 07/26/20 18:00 08/25/20 17:59 07/30/20 08:30 Dexamethasone Sodium Phosphate (Decadron 4mg/ml vial) 2 mg Q6HR IVP 07/28/20 12:00 10/23/20 11:59 07/30/20 05:47 Heparin Sodium (Porcine) (Heparin 5000 units/ml) 5,000 units EVERY 12 HOURS SUBQ 07/25/20 21:00 09/08/20 20:59 07/30/20 08:32 Hydralazine HCl (Apresoline) 25 mg Q6HR PRN ORAL For High Blood Pressure >170 07/25/20 12:45 10/23/20 12:44 Metoprolol Tartrate (Lopressor) 25 mg Q12HR ORAL 07/25/20 21:00 10/23/20 20:59 07/30/20 08:31 Morphine Sulfate (Morphine Sulfate) 4 mg Q4H PRN IVP Severe Pain (Pain Scale 7-10) 07/24/20 22:00 07/31/20 21:59 07/25/20 15:39 Ondansetron HCl (Zofran) 4 mg Q4H PRN IVP Nausea & Vomiting 07/24/20 22:00 08/23/20 21:59 Quetiapine Fumarate (SEROqueL) 50 mg BEDTIME ORAL 07/26/20 21:00 09/09/20 20:59 07/29/20 21:36 Assessment/Plan Assessment/Plan IMPRESSION: 1. Hypercalcemia, suspect secondary to malignancy. 2. Lung mass. 3. Emphysema. 4. Hypertension. DISCUSSION: Off IV fluid hydration. Will continue maintainance fluids as pt is NPO S/P CT-guided lung biopsy. Continue Decadron Continue O2 Minimize sedation Oly Lara Omar Syed MD Jul 30, 2020 09:45
[2020-07-30 12:00] VITALS: BP 122/77
--- NOTE | 2020-07-30 13:24 | Nephrology Progress Note ---
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 # Pulmonary HTN likely Class 3 # Hypercalcemia 2/2 ?Malignancy (MM) vs vs paraneoplastic syndrome ( squamous cell cancer) vs PHPTH # ?Chronic HFpEF 2/2 ischemic vs non-ischemic vs tachyarrhythmia induced cardiomyopathy - compensated # ?Chronic Respiratory Acidosis on home O2 # Normocytic Anemia 2/2 ACD vs DEYANIRA # Hx of COPD # Hx of Dementia # ?Parkinson's related dementia # Essential HTN - S/P CT-guided lung biopsy--> 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 - monitor free calcium - s/p pamindronate - trial of sinemet for tremors - pulm eval - surg eval - monitor calcium level - continue with steroids - monitor BP - avoid nephrotoxins Subjective ROS Limited/Unobtainable: Yes Subjective S/P CT-guided lung biopsy intermittently agitated and combative continues to have tremors sinemet added GI consulted for PEG Objective Objective Last 24 Hour Vital Signs Date Time Temp Pulse Resp B/P (MAP) Pulse Ox O2 Delivery O2 Flow Rate FiO2 07/30/20 12:00 98.1 72 20 122/77 (92) 99 07/30/20 09:00 Venturi Mask 6.0 07/30/20 08:41 95 Venturi Mask 6.0 31 07/30/20 08:31 87 148/83 07/30/20 08:00 97.8 87 20 143/70 (94) 98 07/30/20 04:00 98.5 87 20 176/83 (114) 98 07/30/20 00:00 98.8 83 20 124/63 (83) 97 07/29/20 21:37 92 157/86 07/29/20 20:13 Venturi Mask 6.0 07/29/20 20:00 98.8 92 20 157/86 (109) 96 07/29/20 19:53 96 Venturi Mask 6.0 31 07/29/20 15:58 98.6 78 18 132/75 (94) 96 07/29/20 15:58 79 20 96 Venturi Mask 6.0 31 07/29/20 15:56 86 20 99 Venturi Mask 6.0 31 79 20 96 Intake and Output 07/29/20 07/30/20 19:00 07:00 Intake Total 575.0 ml Balance 575.0 ml IV Total 575.0 ml # Voids 1 Laboratory Tests 07/30/20 06:15: White Blood Count 9.0, Red Blood Count 3.75L, Hemoglobin 11.7L, Hematocrit 36.1L , Mean Corpuscular Volume 96, Mean Corpuscular Hemoglobin 31.2H, Mean Corpuscular Hemoglobin Concent 32.4, Red Cell Distribution Width 14.4, Platelet Count 205, Mean Platelet Volume 7.6, Neutrophils (%) (Auto) 70.5, Lymphocytes (%) (Auto) 21.8, Monocytes (%) (Auto) 6.8, Eosinophils (%) (Auto) 0.0, Basophils (%) (Auto) 0.9, Sodium Level 139, Potassium Level 4.1, Chloride Level 107, Carbon Dioxide Level 29, Anion Gap 3L, Blood Urea Nitrogen 32H, Creatinine 1.1, Estimat Glomerular Filtration Rate > 60, Glucose Level 125H, Calcium Level 9.6, Phosphorus Level 3.1, Magnesium Level 2.0 Height (Feet): 5 Height (Inches): 9.00 Weight (Pounds): 176 Terence Garcia M.D. Jul 30, 2020 13:24
[2020-07-30] MEDS ORDERED: 1/2 NS 1000ml IV ONE (13:54)
[2020-07-30] MEDS ORDERED: Tubing IV Secondary IV ONE (13:54)
--- NOTE | 2020-07-30 13:55 | Surgery Progress Note ---
Surgery Progress Note Subjective Additional Comments family at bedside no n/v comfortable turning and off load appropriate Objective Last 24 Hour Vital Signs Date Time Temp Pulse Resp B/P (MAP) Pulse Ox O2 Delivery O2 Flow Rate FiO2 07/30/20 12:00 98.1 72 20 122/77 (92) 99 07/30/20 09:00 Venturi Mask 6.0 07/30/20 08:41 95 Venturi Mask 6.0 31 07/30/20 08:31 87 148/83 07/30/20 08:00 97.8 87 20 143/70 (94) 98 07/30/20 04:00 98.5 87 20 176/83 (114) 98 07/30/20 00:00 98.8 83 20 124/63 (83) 97 07/29/20 21:37 92 157/86 07/29/20 20:13 Venturi Mask 6.0 07/29/20 20:00 98.8 92 20 157/86 (109) 96 07/29/20 19:53 96 Venturi Mask 6.0 31 07/29/20 15:58 98.6 78 18 132/75 (94) 96 07/29/20 15:58 79 20 96 Venturi Mask 6.0 31 07/29/20 15:56 86 20 99 Venturi Mask 6.0 31 79 20 96 I&O Intake and Output 07/29/20 07/30/20 19:00 07:00 Intake Total 575.0 ml Balance 575.0 ml IV Total 575.0 ml # Voids 1 Dressing: dry Cardiovascular: RSR Respiratory: decreased breath sounds Abdomen: non-tender, present bowel sounds Extremities: no edema, no tenderness, no cyanosis Laboratory Tests Test 07/30/20 06:15 White Blood Count 9.0 K/UL (4.8-10.8) Red Blood Count 3.75 M/UL (4.70-6.10) L Hemoglobin 11.7 G/DL (14.2-18.0) L Hematocrit 36.1 % (42.0-52.0) L Mean Corpuscular Volume 96 FL (80-99) Mean Corpuscular Hemoglobin 31.2 PG (27.0-31.0) H Mean Corpuscular Hemoglobin Concent 32.4 G/DL (32.0-36.0) Red Cell Distribution Width 14.4 % (11.6-14.8) Platelet Count 205 K/UL (150-450) Mean Platelet Volume 7.6 FL (6.5-10.1) Neutrophils (%) (Auto) 70.5 % (45.0-75.0) Lymphocytes (%) (Auto) 21.8 % (20.0-45.0) Monocytes (%) (Auto) 6.8 % (1.0-10.0) Eosinophils (%) (Auto) 0.0 % (0.0-3.0) Basophils (%) (Auto) 0.9 % (0.0-2.0) Sodium Level 139 MMOL/L (136-145) Potassium Level 4.1 MMOL/L (3.5-5.1) Chloride Level 107 MMOL/L (98-107) Carbon Dioxide Level 29 MMOL/L (21-32) Anion Gap 3 mmol/L (5-15) L Blood Urea Nitrogen 32 mg/dL (7-18) H Creatinine 1.1 MG/DL (0.55-1.30) Estimat Glomerular Filtration Rate > 60 mL/min (>60) Glucose Level 125 MG/DL (74-106) H Calcium Level 9.6 MG/DL (8.5-10.1) Phosphorus Level 3.1 MG/DL (2.5-4.9) Magnesium Level 2.0 MG/DL (1.8-2.4) Plan Problems: (1) Abdominal pain Assessment & Plan: resolved tolerating now no complaints likely constipation patient developing breakdown in sacral region noted and care plan initiated (2) Lung mass Assessment & Plan: ct guided biopsy pending path likely neoplasm Prior imaging studies reviewed. Emergency physician consent was on the chart, improved mild risk management. Procedural timeout performed. Localizing spiral acquisitions obtained through the chest. Intended puncture site was marked, sterilely prepped and draped. Local anesthesia with 1% lidocaine. Under CT visualization, a 17-gauge guide needle was advanced into the periphery of the target lesion. Total 3 needle passes then made using coaxially inserted 18-gauge automated biopsy gun. Specimens placed in formalin, submitted to pathology. Follow-up CT images demonstrated a small amount of air within the target lesion, and a small superficial hematoma at the puncture site. The patient otherwise tolerated the procedure well, without immediate complication. Total dose length product 900 mGycm. CTDIvol(s) 4, 6.7 x 9 mGy. Radiation dose was minimized using automated exposure control Comparison: none Findings: Intraoperative images document successful needle placement into the target lesion. Final images demonstrate small superficial hematoma at the puncture site Impression: Apparently successful right lung mass biopsy, as described. Final pathology pending The pulmonary arteries are well-opacified. No intraluminal filling defects or other findings to suggest acute pulmonary embolus are evident. The main pulmonary artery is dilated, measuring 4.3 cm in diameter, and the right and left pulmonary arteries are also dilated. The ascending thoracic aorta is ectatic although not frankly aneurysmal, measuring up to 4.3 cm in diameter. There is a mass in the right upper lobe. This demonstrates peripheral enhancement, central attenuations just above necrosis. This measures 7 x 6.5 x 7 cm. There is right hilar adenopathy, with multiple nodes in the right hilum, largest measuring 4 cm in diameter, also demonstrating some central low-attenuation. There is also mediastinal lymphadenopathy, the largest precarinal node measuring 3.7 cm long axis dimension. The lymphadenopathy results in mild narrowing of some of the segmental pulmonary arteries. The lungs are hyperinflated. There is centrilobular emphysema and bilateral bullous changes, the latter predominantly in the upper lobes but with also considerable mostly interstitial bullae in the lower lobes. Areas of scarring are demonstrated bilaterally. There is a small left pleural effusion No infiltrates are d emonstrated. The heart size is normal. There is a pericardial effusion mostly anteriorly which measures up to 11 mm in thickness. The included thyroid is unremarkable. There is bilateral gynecomastia. There is diffuse mild edema of the subcutaneous fat. Please refer to report of abdominal pelvic CT performed the same time for findings in the upper abdomen. Impression: Negative for evidence of acute pulmonary embolus or other acute pulmonary pathology. 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 Pericardial effusion Incidental finding of bilateral gynecomastia Evidence of mild anasarca, with diffuse edema of the subcutaneous fat. (3) Chest pain Pedro Burton Jul 30, 2020 13:55
--- NOTE | 2020-07-30 14:00 | NUR ---
CHARGE NURSE NOTE: Spoke with central supply -notified them that pt needs a P200 mattress.
--- NOTE | 2020-07-30 15:48 | General Progress Note ---
Subjective ROS Limited/Unobtainable: No Allergies: Coded Allergies: No Known Allergies (Unverified , 07/24/20) Objective Last 24 Hour Vital Signs Date Time Temp Pulse Resp B/P (MAP) Pulse Ox O2 Delivery O2 Flow Rate FiO2 07/30/20 12:00 98.1 72 20 122/77 (92) 99 07/30/20 09:00 Venturi Mask 6.0 07/30/20 08:41 95 Venturi Mask 6.0 31 07/30/20 08:31 87 148/83 07/30/20 08:00 97.8 87 20 143/70 (94) 98 07/30/20 04:00 98.5 87 20 176/83 (114) 98 07/30/20 00:00 98.8 83 20 124/63 (83) 97 07/29/20 21:37 92 157/86 07/29/20 20:13 Venturi Mask 6.0 07/29/20 20:00 98.8 92 20 157/86 (109) 96 07/29/20 19:53 96 Venturi Mask 6.0 31 07/29/20 15:58 98.6 78 18 132/75 (94) 96 07/29/20 15:58 79 20 96 Venturi Mask 6.0 31 07/29/20 15:56 86 20 99 Venturi Mask 6.0 31 79 20 96 Intake and Output 07/29/20 07/30/20 19:00 07:00 Intake Total 575.0 ml Balance 575.0 ml IV Total 575.0 ml # Voids 1 Laboratory Tests 07/30/20 06:15: White Blood Count 9.0, Red Blood Count 3.75L, Hemoglobin 11.7L, Hematocrit 36.1L , Mean Corpuscular Volume 96, Mean Corpuscular Hemoglobin 31.2H, Mean Corpuscular Hemoglobin Concent 32.4, Red Cell Distribution Width 14.4, Platelet Count 205, Mean Platelet Volume 7.6, Neutrophils (%) (Auto) 70.5, Lymphocytes (%) (Auto) 21.8, Monocytes (%) (Auto) 6.8, Eosinophils (%) (Auto) 0.0, Basophils (%) (Auto) 0.9, Sodium Level 139, Potassium Level 4.1, Chloride Level 107, Carbon Dioxide Level 29, Anion Gap 3L, Blood Urea Nitrogen 32H, Creatinine 1.1, Estimat Glomerular Filtration Rate > 60, Glucose Level 125H, Calcium Level 9.6, Phosphorus Level 3.1, Magnesium Level 2.0 Height (Feet): 5 Height (Inches): 9.00 Weight (Pounds): 176 General Appearance: lethargic EENT: normal ENT inspection Neck: supple Cardiovascular: normal rate Respiratory/Chest: decreased breath sounds Abdomen: normal bowel sounds, non tender, soft Extremities: non-tender Assessment/Plan Problem List: (1) Dysphagia ICD Codes: R13.10 - Dysphagia, unspecified SNOMED: 61934283, 293617718 (2) Abdominal pain ICD Codes: R10.9 - Unspecified abdominal pain SNOMED: 39321947 (3) Chest pain ICD Codes: R07.9 - Chest pain, unspecified SNOMED: [id number] Qualifiers: Qualified Codes: R07.9 - Chest pain, unspecified (4) Lung mass ICD Codes: R91.8 - Other nonspecific abnormal finding of lung field SNOMED: 546134341 Assessment/Plan: FTT will need GT plan for possibly tomorrow will fu José iDego MD Jul 30, 2020 15:48
[2020-07-30 16:00] VITALS: BP 121/80
--- NOTE | 2020-07-30 16:15 | NUR ---
CASE MANAGEMENT:REVIEW SI;PA-FIB. PULMONARY MASS. HYPERCALCEMIA. 98.8 87 20 176/83 95% 6L VENTURI MASK FIO2 31% BUN 32 BG 125 IS;DECADRON IV Q6 HEPARIN SUBQ Q12 LOPRESSOR PO Q12 ASA PO QS MED SURG STATUS DCP;FROM HOME
--- NOTE | 2020-07-30 19:17 | NUR ---
NURSE NOTES: Received report from enrrique keller. patient is on bed, awake. on venturi mask @ 6L, Fi02 of 31%. no moaning or facial grimacing noted. with iv line on the left forearm, saline lock.per arianna, " for egd and peg placement tomorrow however dr. dc haven't discuss to the family yet. still waiting for the confirmation from dr. dc to obtain consent." noted with bilateral soft wrist restraints no injury noted at the moment. kept head of bed elevated. reiterated to call and ask for assistance. call light and light button within easy reach. bed alarm on. will continue plan of care.
--- NOTE | 2020-07-30 19:29 | NUR ---
HAND-OFF: Report given to DC Martinez.
[2020-07-30 20:00] VITALS: BP 146/93
[2020-07-30] MEDS: Atorvastatin 80mg tab ORAL SCH (20:33)
--- NOTE | 2020-07-30 21:36 | NUR ---
NURSE NOTES: per dr. dc " he will call the family tomorrow to discuss the consent for EGD AND PEG Placement. charge Nurse made aware.
--- NOTE | 2020-07-30 22:58 | Psychiatric Progress Note ---
Psychiatry Progress Note Psychiatry Progress Note Medications Current Medications Medications (Trade) Dose Ordered Sig/Jordan Route PRN Reason Start Time Stop Time Status Last Admin Dose Admin Acetaminophen (Tylenol) 650 mg Q4H PRN ORAL Mild Pain (Pain Scale 1-3) 07/24/20 22:00 08/23/20 21:59 Acetaminophen/ Hydrocodone Bitart ([place] 5/325) 1 tab Q4H PRN ORAL Moderate Pain (Pain Scale 4-6) 07/24/20 22:00 07/31/20 21:59 Aspirin (ASA) 81 mg DAILY ORAL 07/25/20 09:00 09/08/20 08:59 07/30/20 08:31 Atorvastatin Calcium (Lipitor) 80 mg BEDTIME ORAL 07/25/20 21:00 10/23/20 20:59 07/30/20 20:33 Barium Sulfate (Varibar Honey) 250 ml NOW PRN MC RAD 07/28/20 22:45 07/31/20 22:31 Barium Sulfate (Varibar [place]) 240 ml NOW PRN MC RAD 07/28/20 22:45 07/31/20 22:31 Barium Sulfate (Varibar Pudding) 230 ml NOW PRN MC RAD 07/28/20 22:45 07/31/20 22:31 Barium Sulfate (Varibar Thin Liquid powder) 148 gm NOW PRN MC RAD 07/28/20 22:45 07/31/20 22:31 Carbidopa/Levodopa (Sinemet 10/100) 1 tab THREE TIMES A DAY ORAL 07/26/20 18:00 08/25/20 17:59 07/30/20 17:17 Dexamethasone Sodium Phosphate (Decadron 4mg/ml vial) 2 mg Q6HR IVP 07/28/20 12:00 10/23/20 11:59 07/30/20 17:17 Heparin Sodium (Porcine) (Heparin 5000 units/ml) 5,000 units EVERY 12 HOURS SUBQ 07/25/20 21:00 09/08/20 20:59 07/30/20 08:32 Hydralazine HCl (Apresoline) 25 mg Q6HR PRN ORAL For High Blood Pressure >170 07/25/20 12:45 10/23/20 12:44 Metoprolol Tartrate (Lopressor) 25 mg Q12HR ORAL 07/25/20 21:00 10/23/20 20:59 07/30/20 20:32 Morphine Sulfate (Morphine Sulfate) 4 mg Q4H PRN IVP Severe Pain (Pain Scale 7-10) 07/24/20 22:00 07/31/20 21:59 07/25/20 15:39 Ondansetron HCl (Zofran) 4 mg Q4H PRN IVP Nausea & Vomiting 07/24/20 22:00 08/23/20 21:59 Quetiapine Fumarate (SEROqueL) 50 mg BEDTIME ORAL 07/26/20 21:00 09/09/20 20:59 07/30/20 20:32 Neurological/Psychiatric: Reports: anxiety, depressed, emotional problems; Denies: no symptoms, headache, numbness, paresthesia, pre-existing deficit, seizure, tingling, tremors, weakness, other Allergies: Coded Allergies: No Known Allergies (Unverified , 07/24/20) Objective Data Height (Feet): 5 Height (Inches): 9.00 Weight (Pounds): 176 General Appearance: no apparent distress, alert, confused, agitated Additional Comments: awake, oriented to self only, confused, disoriented. Mood is agitated. Affect is flat. Thought process, there is a paucity of thought content. Thought content, no suicidal or homicidal ideation. Cognition is impaired. Insight and judgment, impaired. Assessment/Plan Assessment/Plan: ASSESSMENT: Wadley I Dementia with behavior disturbance. Acute toxic encephalopathy. Wadley II Deferred. Wadley III Emphysema. Wadley IV Low. Wadley V 20. PLAN: 1. Seroquel 25 mg at bedtime. 2. Discussed with the nurse and primary physician. Froilan Lee MD Jul 30, 2020 22:58
--- NOTE | 2020-07-30 23:43 | General Progress Note ---
Subjective Allergies: Coded Allergies: No Known Allergies (Unverified , 07/24/20) Subjective ROS Limited/Unobtainable: Yes - Patient with advanced Parkinson's/dementia unable to follow any current commands or answer question appropriately Allergies: Coded Allergies: No Known Allergies (Unverified , 07/24/20) Subjective No acute events overnight. Patient still on simple mask. Patient lying in bed, no acute distress. Objective Last 24 Hour Vital Signs Date Time Temp Pulse Resp B/P (MAP) Pulse Ox O2 Delivery O2 Flow Rate FiO2 07/30/20 21:00 Venturi Mask 6.0 07/30/20 20:32 97 146/93 07/30/20 20:00 97.7 97 20 146/93 (110) 96 07/30/20 19:29 96 Venturi Mask 6.0 31 07/30/20 16:00 98.1 89 20 121/80 (94) 99 07/30/20 12:00 98.1 72 20 122/77 (92) 99 07/30/20 09:00 Venturi Mask 6.0 07/30/20 08:41 95 Venturi Mask 6.0 31 07/30/20 08:31 87 148/83 07/30/20 08:00 97.8 87 20 143/70 (94) 98 07/30/20 04:00 98.5 87 20 176/83 (114) 98 07/30/20 00:00 98.8 83 20 124/63 (83) 97 Intake and Output 07/29/20 07/30/20 19:00 07:00 Intake Total 575.0 ml Balance 575.0 ml IV Total 575.0 ml # Voids 1 Laboratory Tests 07/30/20 06:15: White Blood Count 9.0, Red Blood Count 3.75L, Hemoglobin 11.7L, Hematocrit 36.1L , Mean Corpuscular Volume 96, Mean Corpuscular Hemoglobin 31.2H, Mean Corpuscular Hemoglobin Concent 32.4, Red Cell Distribution Width 14.4, Platelet Count 205, Mean Platelet Volume 7.6, Neutrophils (%) (Auto) 70.5, Lymphocytes (%) (Auto) 21.8, Monocytes (%) (Auto) 6.8, Eosinophils (%) (Auto) 0.0, Basophils (%) (Auto) 0.9, Sodium Level 139, Potassium Level 4.1, Chloride Level 107, Carbon Dioxide Level 29, Anion Gap 3L, Blood Urea Nitrogen 32H, Creatinine 1.1, Estimat Glomerular Filtration Rate > 60, Glucose Level 125H, Calcium Level 9.6, Phosphorus Level 3.1, Magnesium Level 2.0 Height (Feet): 5 Height (Inches): 9.00 Weight (Pounds): 176 Objective General Appearance: confused, no acute distress EENT: PERRL/EOMI Neck: non-tender Cardiovascular: normal rate, regular rhythm, no JVD Respiratory/Chest: chest wall non-tender, lungs clear, normal breath sounds Abdomen: normal bowel sounds, non tender, soft Extremities: other - In restraints Edema: no edema noted Arm (L), no edema noted Arm (R), no edema noted Leg (L), no edema noted Leg (R), no edema noted Pedal (L), no edema noted Pedal (R), no edema noted Generalized 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 grossly normal, alert Skin: normal pigmentation, warm/dry Assessment/Plan Assessment/Plan: 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 # Hypercalcemia 2/2 Malignancy (MM) vs vs paraneoplastic syndrome ( squamous cell cancer)improving # Acute vs Chronic Encephalopathy 2/2 Hypercalcemia, worsening Parkinson/dementia # Atypical Chest Pain w/ ACS r/o # New vs Paroxsymal Afib # Pulmonary HTN likely Class 3 # New vs Chronic HFpEF 2/2 ischemic vs non-ischemic vs tachyarrhythmia induced cardiomyopathy - compensated # Chronic Respiratory Failure on home O2 # Normocytic Anemia 2/2 ACD vs DEYANIRA # Hx of COPD # Hx of Dementia # ?Parkinson's related dementia # Essential HTN P: - hemodynamically stable - continue simple mask due to desaturation, Keep O2 > 88% - duonebs prn - GI Dr. Diego consulted, plan for PEG tube - f/u Biopsy results of lung mass - outpatient PET per heme/onc - ECHO: EF 60%, mild diastolic dysfunction, RSVP 65 - CHADVASC: 4, pericardial no anticoagulation due to high bleeding risk, continue aspirin - keep K > 4, Mg > 2 - metoprolol 25 mg BID - monitor renal function - s/p Pamidronate - off fluids, lasix - calcium normalized - f/u SPEP, Immunofixation, LDH, B2 microglobulin Follow-up speech and swallow evaluation, currently n.p.o. - consult Dr. Chester, Pulm, recs appreciated - consult Dr. Otero, Cardio, recs appreciated - consult Dr. Laura, Heme/onc, recs appreciated - CM/SW - Today, tried calling son and daughter Yusuf and Homer nava to discuss roasterman goals of care on both home and cell numbers, however, unable to reach them. Will continue to try. CODE: Full Diet: N.p.o. until PEG tube placed GI: none DVT: Heparin 5000U BID Dispo: f/u biopsy results, and SW for POA and medical decision making; d/c SNF once stable Time spent on this encounter was 33 minutes which included 19 minutes of counseling and care coordination. I discussed with the nurse at bedside. Time of note may not reflect time patient was seen. Yamil Murphy M.D. Jul 30, 2020 23:43
[2020-07-31] VITALS (10 sets, daily range): BP systolic 112–147; BP diastolic 73–90
[2020-07-31 05:46] LABS: BASOPHILS % (AUTO) 0.9 % (0.0-2.0); EOSINOPHILS % (AUTO) 0.2 % (0.0-3.0); HEMOGLOBIN 11.3 G/DL (14.2-18.0); MEAN CORPUSCULAR VOLUME 97 FL (80-99); MONOCYTES % (AUTO) 9.7 % (1.0-10.0); NEUTROPHILS % (AUTO) 70.1 % (45.0-75.0); PLATELET COUNT 161 K/UL (150-450); RED BLOOD COUNT 3.62 M/UL (4.70-6.10); RED CELL DISTRIBUTION WIDTH 14.4 % (11.6-14.8); WHITE BLOOD COUNT 9.7 K/UL (4.8-10.8)
--- NOTE | 2020-07-31 06:27 | NUR ---
NURSE HAND-OFF: Important Events on Shift: RESTRAINTS CARE, REPOSITIONED Q2H; SAFETY, O2 MONITORING. PER DR. PULLIAM " HE WILL DISCUSS THE PROCEDURE TODAY (EGD AND PEG PLACEMENT) WITH THE FAMILY". Patient Status: stable Diet: NPO except ice chips and meds Pending Orders: egd and peg placement Pending Results/Labs: Pending MD notification: Latest Vital Signs: Temperature 97.8 , Pulse 88 , B/P 138 /85 , Respiratory Rate 20 , O2 SAT 96 , Venturi Mask, O2 Flow Rate 6.0 . Vital Sign Comment: Latest Knox Fall Score: 75 Fall Risk: High Risk Safety Measures: Call light Within Reach, Bed Alarm Zone 2, Side Rails Side Rails x3, Bed position Low and Locked. Fall Precautions: Yellow Socks Yellow Gown Door Sign Patient Fall Education
--- NOTE | 2020-07-31 06:53 | Hematology/Onc Progress Note ---
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 does occur with malignancy, unlikely is new primary # Acute vs Chronic Encephalopathy 2/2 Hypercalcemia, worsening Parkinson/dementia --> r/o infectious etiology # Normocytic Anemia 2/2 ACD vs DEYANIRA --> anemia panel if lower # Pulmonary HTN likely Class 3 # ?Chronic HFpEF 2/2 ischemic vs non-ischemic vs tachyarrhythmia induced cardiomyopathy - compensated # ?Chronic Respiratory Acidosis on home O2 # Hx of COPD # Hx of Dementia # ?Parkinson's related dementia # Essential HTN Appreciate consultation and dw RN Subjective HEENT: Denies: no symptoms, eye pain, blurred vision, tearing, double vision, ear pain, ear discharge, nose pain, nose congestion, throat pain, throat swelling, mouth pain, mouth swelling, other Cardiovascular: Denies: no symptoms, chest pain, edema, irregular heart rate, lightheadedness, palpitations, syncope, other Respiratory: Denies: no symptoms, cough, shortness of breath, SOB with excertion, SOB at rest, sputum, wheezing, other Gastrointestinal/Abdominal: Denies: no symptoms, abdomen distended, abdominal pain, black stools, tarry stools, blood in stool, constipated, diarrhea, difficulty swallowing, nausea, poor appetite, poor fluid intake, rectal bleeding, vomiting, other Genitourinary: Denies: no symptoms, burning, discharge, frequency, flank pain, hematuria, incontinence, pain, urgency, other Neurologic/Psychiatric: Denies: no symptoms, anxiety, depressed, emotional problems, headache, numbness, paresthesia, pre-existing deficit, seizure, tingling, tremors, weakness, other Endocrine: Denies: no symptoms, excessive sweating, flushing, intolerance to cold, intolerance to heat, increased hunger, increased thirst, increased urine, unexplained weight gain, unexplained weight loss, other Hematologic/Lymphatic: Denies: no symptoms, anemia, easy bleeding, easy bruising, adenopathy, other Allergies: Coded Allergies: No Known Allergies (Unverified , 07/24/20) Subjective 07/28 on restraints, on 14L on venturi mask, no bleeding, meds noted, hgb 10.5, biopsy done 07/26 07/29 on restraints, venturi mask, labs have been reviewed, meds noted 07/30 on restraints, confused, is on 6l, no bleeding, labs noted 07/31 with peg and egd potentially today as per GI, no bleeding, meds noted Objective Objective Current Medications Medications (Trade) Dose Ordered Sig/Jordan Route PRN Reason Start Time Stop Time Status Last Admin Dose Admin Acetaminophen (Tylenol) 650 mg Q4H PRN ORAL Mild Pain (Pain Scale 1-3) 07/24/20 22:00 08/23/20 21:59 Acetaminophen/ Hydrocodone Bitart ([place] 5/325) 1 tab Q4H PRN ORAL Moderate Pain (Pain Scale 4-6) 07/24/20 22:00 07/31/20 21:59 Aspirin (ASA) 81 mg DAILY ORAL 07/25/20 09:00 09/08/20 08:59 07/30/20 08:31 Atorvastatin Calcium (Lipitor) 80 mg BEDTIME ORAL 07/25/20 21:00 10/23/20 20:59 07/30/20 20:33 Barium Sulfate (Varibar Honey) 250 ml NOW PRN MC RAD 07/28/20 22:45 07/31/20 22:31 Barium Sulfate (Varibar [place]) 240 ml NOW PRN MC RAD 07/28/20 22:45 07/31/20 22:31 Barium Sulfate (Varibar Pudding) 230 ml NOW PRN MC RAD 07/28/20 22:45 07/31/20 22:31 Barium Sulfate (Varibar Thin Liquid powder) 148 gm NOW PRN MC RAD 07/28/20 22:45 07/31/20 22:31 Carbidopa/Levodopa (Sinemet /) 1 tab THREE TIMES A DAY ORAL 07/26/20 18:00 08/25/20 17:59 07/30/20 17:17 Dexamethasone Sodium Phosphate (Decadron 4mg/ml vial) 2 mg Q6HR IVP 07/28/20 12:00 10/23/20 11:59 07/31/20 05:42 Heparin Sodium (Porcine) (Heparin 5000 units/ml) 5,000 units EVERY 12 HOURS SUBQ 07/25/20 21:00 09/08/20 20:59 07/30/20 08:32 Hydralazine HCl (Apresoline) 25 mg Q6HR PRN ORAL For High Blood Pressure >170 07/25/20 12:45 10/23/20 12:44 Metoprolol Tartrate (Lopressor) 25 mg Q12HR ORAL 07/25/20 21:00 10/23/20 20:59 07/30/20 20:32 Morphine Sulfate (Morphine Sulfate) 4 mg Q4H PRN IVP Severe Pain (Pain Scale 7-10) 07/24/20 22:00 07/31/20 21:59 07/25/20 15:39 Ondansetron HCl (Zofran) 4 mg Q4H PRN IVP Nausea & Vomiting 07/24/20 22:00 08/23/20 21:59 Quetiapine Fumarate (SEROqueL) 50 mg BEDTIME ORAL 07/26/20 21:00 09/09/20 20:59 07/30/20 20:32 Last 24 Hour Vital Signs Date Time Temp Pulse Resp B/P (MAP) Pulse Ox O2 Delivery O2 Flow Rate FiO2 07/31/20 04:00 97.8 88 20 138/85 (102) 96 07/31/20 00:00 98.1 90 20 138/90 (106) 96 07/30/20 21:00 Venturi Mask 6.0 07/30/20 20:32 97 146/93 07/30/20 20:00 97.7 97 20 146/93 (110) 96 07/30/20 19:29 96 Venturi Mask 6.0 31 07/30/20 16:00 98.1 89 20 121/80 (94) 99 07/30/20 12:00 98.1 72 20 122/77 (92) 99 07/30/20 09:00 Venturi Mask 6.0 07/30/20 08:41 95 Venturi Mask 6.0 31 07/30/20 08:31 87 148/83 07/30/20 08:00 97.8 87 20 143/70 (94) 98 07/30/20 04:00 98.5 87 20 176/83 (114) 98 07/30/20 00:00 98.8 83 20 124/63 (83) 97 07/29/20 21:37 92 157/86 07/29/20 20:13 Venturi Mask 6.0 07/29/20 20:00 98.8 92 20 157/86 (109) 96 07/29/20 19:53 96 Venturi Mask 6.0 31 07/29/20 15:58 98.6 78 18 132/75 (94) 96 07/29/20 15:58 79 20 96 Venturi Mask 6.0 31 07/29/20 15:56 86 20 99 Venturi Mask 6.0 31 79 20 96 07/29/20 12:10 98.0 79 19 145/82 (103) 96 07/29/20 09:00 Venturi Mask 6.0 07/29/20 08:51 67 145/76 07/29/20 08:00 97.8 67 18 145/76 (99) 98 07/29/20 07:56 96 20 98 Nasal Cannula 2.0 28 Intake and Output 07/30/20 07/31/20 19:00 07:00 # Voids 1 1 Labs Test 07/28/20 08:50 07/29/20 07:20 07/30/20 06:15 07/31/20 05:04 White Blood Count 9.8 K/UL (4.8-10.8) 9.0 K/UL (4.8-10.8) 9.7 K/UL (4.8-10.8) Red Blood Count 3.61 M/UL (4.70-6.10) 3.75 M/UL (4.70-6.10) 3.62 M/UL (4.70-6.10) Hemoglobin 11.1 G/DL (14.2-18.0) 11.7 G/DL (14.2-18.0) 11.3 G/DL (14.2-18.0) Hematocrit 34.3 % (42.0-52.0) 36.1 % (42.0-52.0) 35.0 % (42.0-52.0) Mean Corpuscular Volume 95 FL (80-99) 96 FL (80-99) 97 FL (80-99) Mean Corpuscular Hemoglobin 30.8 PG (27.0-31.0) 31.2 PG (27.0-31.0) 31.2 PG (27.0-31.0) Mean Corpuscular Hemoglobin Concent 32.4 G/DL (32.0-36.0) 32.4 G/DL (32.0-36.0) 32.3 G/DL (32.0-36.0) Red Cell Distribution Width 14.1 % (11.6-14.8) 14.4 % (11.6-14.8) 14.4 % (11.6-14.8) Platelet Count 200 K/UL (150-450) 205 K/UL (150-450) 161 K/UL (150-450) Mean Platelet Volume 7.4 FL (6.5-10.1) 7.6 FL (6.5-10.1) 6.9 FL (6.5-10.1) Neutrophils (%) (Auto) 79.0 % (45.0-75.0) 70.5 % (45.0-75.0) 70.1 % (45.0-75.0) Lymphocytes (%) (Auto) 14.7 % (20.0-45.0) 21.8 % (20.0-45.0) 19.0 % (20.0-45.0) Monocytes (%) (Auto) 5.5 % (1.0-10.0) 6.8 % (1.0-10.0) 9.7 % (1.0-10.0) Eosinophils (%) (Auto) 0.0 % (0.0-3.0) 0.0 % (0.0-3.0) 0.2 % (0.0-3.0) Basophils (%) (Auto) 0.8 % (0.0-2.0) 0.9 % (0.0-2.0) 0.9 % (0.0-2.0) Sodium Level 136 MMOL/L (136-145) 136 MMOL/L (136-145) 139 MMOL/L (136-145) Potassium Level 3.7 MMOL/L (3.5-5.1) 3.4 MMOL/L (3.5-5.1) 4.1 MMOL/L (3.5-5.1) Chloride Level 106 MMOL/L (98-107) 103 MMOL/L (98-107) 107 MMOL/L (98-107) Carbon Dioxide Level 28 MMOL/L (21-32) 31 MMOL/L (21-32) 29 MMOL/L (21-32) Anion Gap 2 mmol/L (5-15) 2 mmol/L (5-15) 3 mmol/L (5-15) Blood Urea Nitrogen 27 mg/dL (7-18) 30 mg/dL (7-18) 32 mg/dL (7-18) Creatinine 1.1 MG/DL (0.55-1.30) 1.1 MG/DL (0.55-1.30) 1.1 MG/DL (0.55-1.30) Estimat Glomerular Filtration Rate > 60 mL/min (>60) > 60 mL/min (>60) > 60 mL/min (>60) Glucose Level 113 MG/DL (74-106) 113 MG/DL (74-106) 125 MG/DL (74-106) Calcium Level 10.6 MG/DL (8.5-10.1) 10.4 MG/DL (8.5-10.1) 9.6 MG/DL (8.5-10.1) Ionized Calcium (Measured) 1.46 mmol/L (1.10-1.35) 1.39 mmol/L (1.10-1.35) Phosphorus Level 2.3 MG/DL (2.5-4.9) 2.2 MG/DL (2.5-4.9) 3.1 MG/DL (2.5-4.9) Magnesium Level 1.6 MG/DL (1.8-2.4) 1.6 MG/DL (1.8-2.4) 2.0 MG/DL (1.8-2.4) Height (Feet): 5 Height (Inches): 9.00 Weight (Pounds): 176 Objective Physical Exam General appearance: alert, cooperative, no distress Heent: Normocephalic, without obvious abnormality, atraumatic, EOM's intact. Fundi benign supple, symmetrical, trachea midline, no adenopathy Lungs: clear to auscultation bilaterally CV: irr irr, S1, S2 normal, no murmur, click, rub or gallop Abd: soft, non-tender. Bowel sounds normal Extremities: extremities normal, no cce Pulses: 2+ and symmetric Skin: Skin color, texture, turgor normal Neurologic: Grossly normal Al Laura MD Jul 31, 2020 06:53
--- NOTE | 2020-07-31 07:17 | NUR ---
NURSE NOTES: Report received from DC Martinez. Patient awake in bed, alert and oriented x 1, no SOB, bed in lowest position with breaks engaged and alarm on, no s/sx of any discomfort at this time. IV line present on left FA. On venturi mask 6L 31%. Will continue to monitor and proceed with plan of care. Call light within reach.
--- NOTE | 2020-07-31 07:20 | NUR ---
HAND-OFF: Report given to enrrique keller.
[2020-07-31] MEDS ORDERED: fentaNYL 100 mcg/2 mL IV PRN (07:45)
[2020-07-31] MEDS ORDERED: Midazolam 2mg/2ml Inj IVP PRN (07:45)
[2020-07-31] MEDS ORDERED: Labetalol 5mg/ml 20ml vial IV PRN (07:45)
[2020-07-31] MEDS ORDERED: Atropine Inj 1mg/10ml Syr IVP PRN (07:45)
[2020-07-31] MEDS ORDERED: DiphenhydrAMINE 50mg/ml Inj IVP PRN (07:45)
--- NOTE | 2020-07-31 07:46 | Anethesia Preoperative Eval ---
Anesthesia Pre-op PMH/ROS General Date of Evaluation: Jul 31, 2020 Time of Evaluation: 07:44 Anesthesiologist: mia ASA Score: ASA 4 Mallampati Score Class I : Soft palate, uvula, fauces, pillars visible Class II: Soft palate, uvula, fauces visible Class III: Soft palate, base of uvula visible Class IV: Only hard plate visible Mallampati Classification: Class II Surgeon: vanda Diagnosis: dysphagia Surgical Procedure: peg placement Anesthesia History: none Social History: smoking - former smoker Family History: no anesthesia problems Allergies: Coded Allergies: No Known Allergies (Unverified , 07/24/20) Patient NPO?: Yes Past Medical History Cardiovascular: Reports: HTN Pulmonary: Reports: COPD, other - emphysema Hematology/Immune: Reports: other - covid-19 negative Anesthesia Pre-op Phys. Exam Physician Exam Last Vital Signs Date Time Temp Pulse Resp B/P (MAP) Pulse Ox O2 Delivery O2 Flow Rate FiO2 07/31/20 04:00 97.8 88 20 138/85 (102) 96 07/30/20 21:00 Venturi Mask 6.0 07/30/20 19:29 31 Constitutional: NAD Neurologic: CN 2-12 intact Cardiovascular: RRR Respiratory: other - venturi mask Gastrointestinal: S/NT/ND Airway Exam Mallampati Score: Class II MO: limited Neck: flexible TMD: 2fb ROM: limited Teeth: missing Anesthesia Pre-op A/P Labs Microbiology Date/Time Source Procedure Growth Status 07/24/20 10:25 Nasopharynx SARS-CoV-2 RdRp Gene Assay - Final Complete Hematology Test 07/31/20 05:04 White Blood Count 9.7 K/UL (4.8-10.8) Red Blood Count 3.62 M/UL (4.70-6.10) L Hemoglobin 11.3 G/DL (14.2-18.0) L Hematocrit 35.0 % (42.0-52.0) L Mean Corpuscular Volume 97 FL (80-99) Mean Corpuscular Hemoglobin 31.2 PG (27.0-31.0) H Mean Corpuscular Hemoglobin Concent 32.3 G/DL (32.0-36.0) Red Cell Distribution Width 14.4 % (11.6-14.8) Platelet Count 161 K/UL (150-450) Mean Platelet Volume 6.9 FL (6.5-10.1) Neutrophils (%) (Auto) 70.1 % (45.0-75.0) Lymphocytes (%) (Auto) 19.0 % (20.0-45.0) L Monocytes (%) (Auto) 9.7 % (1.0-10.0) Eosinophils (%) (Auto) 0.2 % (0.0-3.0) Basophils (%) (Auto) 0.9 % (0.0-2.0) Chemistry Test 07/31/20 05:04 Carcinoembryonic Antigen Pending CA 19-9 Antigen Pending Risk Assessment & Plan Assessment: [email or web address] Plan: mac Status Change Before Surgery: No Pre-Antibiotics Drug: cefazolin 1gm Given Within 1 Hr of Incision: Yes Time Given: 11:50 Betty Ma MD Jul 31, 2020 07:46
[2020-07-31] MEDS: Levodopa/Carbidopa 10/100 tab ORAL SCH ×3 (08:04→17:39)
[2020-07-31] MEDS: Aspirin Baby 81mg ORAL SCH (08:04)
[2020-07-31] MEDS: Heparin 5000 units/ml inj SUBQ SCH ×2 (08:05→21:25)
[2020-07-31] MEDS ORDERED: Lidocaine 1% MPF 10mg/ml 5ml ONE (09:00)
[2020-07-31] MEDS ORDERED: NS 110ml ONE (09:00)
--- NOTE | 2020-07-31 09:41 | Pulmonology Progress Note ---
Subjective ROS Limited/Unobtainable: No Interval Events: CXR reviewed; unchanged Constitutional: Reports: no symptoms HEENT: Repors: no symptoms Respiratory: Reports: no symptoms Cardiovascular: Reports: no symptoms Gastrointestinal/Abdominal: Reports: no symptoms Genitourinary: Reports: no symptoms Allergies: Coded Allergies: No Known Allergies (Unverified , 07/24/20) All Systems: reviewed and negative except above Objective Last 24 Hour Vital Signs Date Time Temp Pulse Resp B/P (MAP) Pulse Ox O2 Delivery O2 Flow Rate FiO2 07/31/20 08:04 88 129/85 07/31/20 04:00 97.8 88 20 138/85 (102) 96 07/31/20 00:00 98.1 90 20 138/90 (106) 96 07/30/20 21:00 Venturi Mask 6.0 07/30/20 20:32 97 146/93 07/30/20 20:00 97.7 97 20 146/93 (110) 96 07/30/20 19:29 96 Venturi Mask 6.0 31 07/30/20 16:00 98.1 89 20 121/80 (94) 99 07/30/20 12:00 98.1 72 20 122/77 (92) 99 Intake and Output 07/30/20 07/31/20 19:00 07:00 # Voids 1 1 General Appearance: no acute distress HEENT: normocephalic Respiratory: chest wall non-tender, decreased breath sounds Cardiovascular: normal peripheral pulses, normal rate Abdomen: normal bowel sounds Extremities: no cyanosis Laboratory Tests 07/31/20 05:04: White Blood Count 9.7, Red Blood Count 3.62L, Hemoglobin 11.3L, Hematocrit 35.0L , Mean Corpuscular Volume 97, Mean Corpuscular Hemoglobin 31.2H, Mean Corpuscular Hemoglobin Concent 32.3, Red Cell Distribution Width 14.4, Platelet Count 161, Mean Platelet Volume 6.9, Neutrophils (%) (Auto) 70.1, Lymphocytes (%) (Auto) 19.0L, Monocytes (%) (Auto) 9.7, Eosinophils (%) (Auto) 0.2, Basophils (%) (Auto) 0.9, Carcinoembryonic Antigen [Pending], CA 19-9 Antigen [Pending] Current Medications Medications (Trade) Dose Ordered Sig/Jordan Route PRN Reason Start Time Stop Time Status Last Admin Dose Admin Acetaminophen (Tylenol) 650 mg Q4H PRN ORAL Mild Pain (Pain Scale 1-3) 07/31/20 07:45 07/31/20 14:00 Acetaminophen (Tylenol) 650 mg Q4H PRN ORAL Mild Pain (Pain Scale 1-3) 07/24/20 22:00 08/23/20 21:59 Acetaminophen/ Hydrocodone Bitart ([place] 5/325) 1 tab Q4H PRN ORAL Moderate Pain (Pain Scale 4-6) 07/24/20 22:00 07/31/20 21:59 Al Hydroxide/Mg Hydroxide (Mylanta) 15 ml Q1H PRN ORAL gi upset 07/31/20 07:45 07/31/20 14:00 Aspirin (ASA) 81 mg DAILY ORAL 07/25/20 09:00 09/08/20 08:59 07/30/20 08:31 Atorvastatin Calcium (Lipitor) 80 mg BEDTIME ORAL 07/25/20 21:00 10/23/20 20:59 07/30/20 20:33 Atropine Sulfate (Atropine) 0.5 mg Q5M PRN IVP bpm less than 45 07/31/20 07:45 07/31/20 14:00 Barium Sulfate (Varibar Honey) 250 ml NOW PRN MC RAD 07/28/20 22:45 07/31/20 22:31 Barium Sulfate (Varibar Wyola) 240 ml NOW PRN MC RAD 07/28/20 22:45 07/31/20 22:31 Barium Sulfate (Varibar Pudding) 230 ml NOW PRN MC RAD 07/28/20 22:45 07/31/20 22:31 Barium Sulfate (Varibar Thin Liquid powder) 148 gm NOW PRN MC RAD 07/28/20 22:45 07/31/20 22:31 Carbidopa/Levodopa (Sinemet 10/100) 1 tab THREE TIMES A DAY ORAL 07/26/20 18:00 08/25/20 17:59 07/31/20 08:04 Cefoxitin Sodium 1 gm/Dextrose 55 ml @ 110 mls/hr ONCE ONCE IVPB 07/31/20 11:30 07/31/20 11:59 Dexamethasone Sodium Phosphate (Decadron 4mg/ml vial) 2 mg Q6HR IVP 07/28/20 12:00 10/23/20 11:59 07/31/20 05:42 Diphenhydramine HCl (Benadryl) 25 mg Q15M PRN IVP Itching 07/31/20 07:45 07/31/20 14:00 Fentanyl Citrate (Sublimaze 100 mcg/2 mL) 25 mcg Q10M PRN IV Moderate Pain (Pain Scale 4-6) 07/31/20 07:45 07/31/20 14:00 Heparin Sodium (Porcine) (Heparin 5000 units/ml) 5,000 units EVERY 12 HOURS SUBQ 07/25/20 21:00 09/08/20 20:59 07/30/20 08:32 Hydralazine HCl (Apresoline) 25 mg Q6HR PRN ORAL For High Blood Pressure >170 07/25/20 12:45 10/23/20 12:44 Labetalol HCl (Normodyne) 5 mg Q10M PRN IV SBP>160 or____/ DBP>90 or 07/31/20 07:45 07/31/20 14:00 Metoprolol Tartrate (Lopressor) 25 mg Q12HR ORAL 07/25/20 21:00 10/23/20 20:59 07/31/20 08:04 Midazolam HCl (Versed 2mg/2ml vial) 1 mg Q15M PRN IVP For Anxiety 07/31/20 07:45 07/31/20 14:00 Morphine Sulfate (Morphine Sulfate) 4 mg Q4H PRN IVP Severe Pain (Pain Scale 7-10) 07/24/20 22:00 07/31/20 21:59 07/25/20 15:39 Ondansetron HCl (Zofran) 4 mg Q1H PRN IVP Nausea & Vomiting 07/31/20 07:45 07/31/20 14:00 Ondansetron HCl (Zofran) 4 mg Q4H PRN IVP Nausea & Vomiting 07/24/20 22:00 08/23/20 21:59 Quetiapine Fumarate (SEROqueL) 50 mg BEDTIME ORAL 07/26/20 21:00 09/09/20 20:59 07/30/20 20:32 Sodium Chloride 1,000 ml @ 10 mls/hr Q24H IVLG 07/31/20 07:45 07/31/20 14:00 07/31/20 07:51 Assessment/Plan Assessment/Plan IMPRESSION: 1. Hypercalcemia, suspect secondary to malignancy. 2. Lung mass. 3. Emphysema. 4. Hypertension. DISCUSSION: Off IV fluid hydration. Will continue maintainance fluids as pt is NPO S/P CT-guided lung biopsy. Continue Decadron Continue O2 Minimize sedation Oly Lara Omar Syed MD Jul 31, 2020 09:41
--- NOTE | 2020-07-31 10:10 | Pre-Procedure Note/Attestation ---
Pre-Procedure Note/Attestation Complete Prior to Procedure Planned Procedure: not applicable Procedure Narrative: egd/peg Indications for Procedure Pre-Operative Diagnosis: dysphagia Attestation I attest that I discussed the nature of the procedure; its benefits; risks and complications; and alternatives (and the risks and benefits of such alternatives), prior to the procedure, with the patient (or the patient's legal home furnishings sales representative). I attest that, if there was a reasonable possibility of needing a blood transfu anderson, the patient (or the patient's legal home furnishings sales representative) was given the [facility] standardized written summary, pursuant to the Oscar Kd Blood Safety Act ([place] Health and Safety Code # 1645, as amended). I attest that I re-evaluated the patient just prior to the surgery and that there has been no change in the patient's H&P, except as documented below: José Diego MD Jul 31, 2020 10:10
--- NOTE | 2020-07-31 11:22 | NUR ---
NURSE NOTES: Patient left form PEG procedure at 1120 in stable condition.
[2020-07-31] MEDS ORDERED: cefOXitin Sod 1 GM in D5W 55 ML IVPB ONE (11:30)
--- NOTE | 2020-07-31 11:57 | Endoscopy Procedure Note ---
Endoscopy Procedure Note General Indication for Procedure: dysphagia Procedures Performed: EGD, PEG Operative Findings/Diagnosis: same Specimen: none Pt Tolerated Procedure Well: Yes Estimated Blood Loss: none Anesthesia Anesthesiologist: temo Anesthesia: MAC Inserted Devices Implant(s) used?: No GI Core Measures 50 yrs or older w/o bx or poly: Not Applicable 10yrs. F/U recommended: Not Applicable José Diego MD Jul 31, 2020 11:57
--- NOTE | 2020-07-31 12:24 | Immediate Post-Op Evaluation ---
Immediate Post-Op Evalulation Immediate Post-Op Evalulation Procedure: egd/peg Date of Evaluation: Jul 31, 2020 Time of Evaluation: 12:18 IV Fluids: 100ml 0.9ns Blood Products: none Estimated Blood Loss: negligible Blood Pressure Systolic: 112 Blood Pressure Diastolic: 74 Pulse Rate: 80 Respiratory Rate: 18 O2 Sat by Pulse Oximetry: 98 Temperature (Fahrenheit): 98.0 Pain Score (1-10): 0 Nausea: No Vomiting: No Complications none Patient Status: awake, reacts, patent Hydration Status: adequate Drug: cefazolin 1gm Given Within 1 Hr of Incision: Yes Time Given: 11:50 Btety Ma MD Jul 31, 2020 12:24
--- NOTE | 2020-07-31 12:25 | 48 Hour Post Anesthesia Eval ---
Post Anesthesia Evaluation Procedure: egd/peg Date of Evaluation: Jul 31, 2020 Time of Evaluation: 12:20 Blood Pressure Systolic: 112 0: 77 Pulse Rate: 88 Respiratory Rate: 18 Temperature (Fahrenheit): 98.0 O2 Sat by Pulse Oximetry: 99 Airway: patent Nausea: No Vomiting: No Pain Intensity: 0 Hydration Status: adequate Cardiopulmonary Status: stable Mental Status/LOC: patient returned to baseline Post-Anesthesia Complications: none Follow-up care needed: N/A Betty Ma MD Jul 31, 2020 12:25
--- NOTE | 2020-07-31 13:04 | NUR ---
NURSE NOTES: Patient came back from GI procedure at 1230 in stable condition. New GT in place and patent. Abdominal binder in place for protection. Pt started on Glucerna 1.5 with goal of 50 cc/hr. Low rate started and will proceed according to tolerance. Denies any discomfort at this time. Will continue to monitor.
--- NOTE | 2020-07-31 13:49 | Nephrology Progress Note ---
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 # Pulmonary HTN likely Class 3 # Hypercalcemia 2/2 ?Malignancy (MM) vs vs paraneoplastic syndrome ( squamous cell cancer) vs PHPTH # ?Chronic HFpEF 2/2 ischemic vs non-ischemic vs tachyarrhythmia induced cardiomyopathy - compensated # ?Chronic Respiratory Acidosis on home O2 # Normocytic Anemia 2/2 ACD vs DEYANIRA # Hx of COPD # Hx of Dementia # ?Parkinson's related dementia # Essential HTN - S/P CT-guided lung biopsy--> 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 - monitor free calcium - s/p pamindronate - trial of sinemet for tremors - pulm eval - surg eval - monitor calcium level - continue with steroids - monitor BP - avoid nephrotoxins Subjective ROS Limited/Unobtainable: No Constitutional: Reports: weakness HEENT: Denies: no symptoms, eye pain, blurred vision, tearing, double vision, ear pain, ear discharge, nose pain, nose congestion, throat pain, throat swelling, mouth pain, mouth swelling, other Genitourinary: Denies: no symptoms, burning, discharge, frequency, flank pain, hematuria, incontinence, pain, urgency, other Neurologic/Psychiatric: Denies: no symptoms, anxiety, depressed, emotional problems, headache, numbness, paresthesia, pre-existing deficit, seizure, tingling, tremors, weakness, other Subjective S/P CT-guided lung biopsy intermittently agitated and combative continues to have tremors sinemet added s/p PEG path showing 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 Objective Objective Last 24 Hour Vital Signs Date Time Temp Pulse Resp B/P (MAP) Pulse Ox O2 Delivery O2 Flow Rate FiO2 07/31/20 12:30 97.7 89 20 112/77 99 Venturi Mask 6 07/31/20 12:25 88 18 99 07/31/20 12:24 80 18 98 07/31/20 12:15 79 17 147/74 98 Venturi Mask 6 07/31/20 12:10 77 18 138/81 97 Venturi Mask 6 07/31/20 12:06 98.4 73 15 112/74 98 Venturi Mask 6 07/31/20 09:00 Venturi Mask 6.0 07/31/20 08:04 88 129/85 07/31/20 08:00 98.6 83 20 143/73 (96) 97 07/31/20 04:00 97.8 88 20 138/85 (102) 96 07/31/20 00:00 98.1 90 20 138/90 (106) 96 07/30/20 21:00 Venturi Mask 6.0 07/30/20 20:32 97 146/93 07/30/20 20:00 97.7 97 20 146/93 (110) 96 07/30/20 19:29 96 Venturi Mask 6.0 31 07/30/20 16:00 98.1 89 20 121/80 (94) 99 Intake and Output 07/30/20 07/31/20 19:00 07:00 # Voids 1 1 Laboratory Tests 07/31/20 05:04: White Blood Count 9.7, Red Blood Count 3.62L, Hemoglobin 11.3L, Hematocrit 35.0L , Mean Corpuscular Volume 97, Mean Corpuscular Hemoglobin 31.2H, Mean Corpuscular Hemoglobin Concent 32.3, Red Cell Distribution Width 14.4, Platelet Count 161, Mean Platelet Volume 6.9, Neutrophils (%) (Auto) 70.1, Lymphocytes (%) (Auto) 19.0L, Monocytes (%) (Auto) 9.7, Eosinophils (%) (Auto) 0.2, Basophils (%) (Auto) 0.9, Carcinoembryonic Antigen [Pending], CA 19-9 Antigen [Pending] Height (Feet): 5 Height (Inches): 8.00 Weight (Pounds): 174 Terence Garcia M.D. Jul 31, 2020 13:49
--- NOTE | 2020-07-31 15:00 | Procedure Note ---
DATE OF PROCEDURE: 07/31/2020 SURGEON: José Diego MD. PROCEDURE: Upper endoscopy with PEG placement. ANESTHESIA: Per Dr. Tran. INSTRUMENT: Olympus adult flexible upper endoscope. INDICATION: Dysphagia. REASON FOR PROCEDURE: The procedure, risks, benefits, and possible consequences, including hemorrhage, aspiration, perforation and infection, and alternative treatments, were explained to the patient/legal guardian by Dr. José Diego and the patient/legal guardian understood and accepted these risks. DESCRIPTION OF PROCEDURE: After informed consent was obtained and the patient was adequately sedated, Olympus upper endoscope was advanced from mouth into the second portion of the duodenum and retroflexion was performed in the stomach. Then under endoscopic guidance, under sterile condition, a 20-Somali pull type of G-tube was successfully placed in the epigastric area. The distance from the tip of the tube to skin was about 3 cm in size. The patient tolerated the procedure very well without any complication. SUMMARY OF FINDINGS: Status post successful PEG placement. RECOMMENDATIONS: 1. Abdominal binder. 2. Elevate the head of the bed at all times. 3. G-tube flush. 4. G-tube care. 5. Start tube feeding later today. 6. The patient received dose of antibiotics prior to this procedure. José Diego M.D. DR: SIENA JOB#: [id number] CC:
--- NOTE | 2020-07-31 15:35 | NUR ---
CASE MANAGEMENT:REVIEW SI;PA-FIB. PULMONARY MASS. HYPERCALCEMIA. S/P EGD W/PEG PLACEMENT 98.6 90 20 143/73 96% 6L VENTURI MASK H/H 11.3/35.0 IS;CEFAZOLIN IV IVF NS BOLUS DECADRON IV Q6 SINEMET PO TID LOPRESSOR PO Q12 MED SURG STATUS DCP;FROM HOME
--- NOTE | 2020-07-31 16:08 | Surgery Progress Note ---
Surgery Progress Note Subjective Symptoms: improved, tolerating diet, passing flatus Objective Last 24 Hour Vital Signs Date Time Temp Pulse Resp B/P (MAP) Pulse Ox O2 Delivery O2 Flow Rate FiO2 07/31/20 12:30 97.7 89 20 112/77 99 Venturi Mask 6 07/31/20 12:25 88 18 99 07/31/20 12:24 80 18 98 07/31/20 12:15 79 17 147/74 98 Venturi Mask 6 07/31/20 12:10 77 18 138/81 97 Venturi Mask 6 07/31/20 12:06 98.4 73 15 112/74 98 Venturi Mask 6 07/31/20 09:00 Venturi Mask 6.0 07/31/20 08:04 88 129/85 07/31/20 08:00 98.6 83 20 143/73 (96) 97 07/31/20 04:00 97.8 88 20 138/85 (102) 96 07/31/20 00:00 98.1 90 20 138/90 (106) 96 07/30/20 21:00 Venturi Mask 6.0 07/30/20 20:32 97 146/93 07/30/20 20:00 97.7 97 20 146/93 (110) 96 07/30/20 19:29 96 Venturi Mask 6.0 31 I&O Intake and Output 07/30/20 07/31/20 19:00 07:00 # Voids 1 1 Dressing: saturated Cardiovascular: RSR Respiratory: decreased breath sounds Abdomen: non-tender, present bowel sounds Extremities: no edema, no tenderness, no cyanosis Laboratory Tests Test 07/31/20 05:04 White Blood Count 9.7 K/UL (4.8-10.8) Red Blood Count 3.62 M/UL (4.70-6.10) L Hemoglobin 11.3 G/DL (14.2-18.0) L Hematocrit 35.0 % (42.0-52.0) L Mean Corpuscular Volume 97 FL (80-99) Mean Corpuscular Hemoglobin 31.2 PG (27.0-31.0) H Mean Corpuscular Hemoglobin Concent 32.3 G/DL (32.0-36.0) Red Cell Distribution Width 14.4 % (11.6-14.8) Platelet Count 161 K/UL (150-450) Mean Platelet Volume 6.9 FL (6.5-10.1) Neutrophils (%) (Auto) 70.1 % (45.0-75.0) Lymphocytes (%) (Auto) 19.0 % (20.0-45.0) L Monocytes (%) (Auto) 9.7 % (1.0-10.0) Eosinophils (%) (Auto) 0.2 % (0.0-3.0) Basophils (%) (Auto) 0.9 % (0.0-2.0) Carcinoembryonic Antigen Pending CA 19-9 Antigen Pending Plan Problems: (1) Abdominal pain Assessment & Plan: resolved tolerating now no complaints likely constipation patient developing breakdown in sacral region noted and care plan initiated (2) Lung mass Assessment & Plan: ct guided biopsy pending path likely neoplasm Prior imaging studies reviewed. Emergency physician consent was on the chart, improved mild risk management. Procedural timeout performed. Localizing spiral acquisitions obtained through the chest. Intended puncture site was marked, sterilely prepped and draped. Local anesthesia with 1% lidocaine. Under CT visualization, a 17-gauge guide needle was advanced into the periphery of the target lesion. Total 3 needle passes then made using coaxially inserted 18-gauge automated biopsy gun. Specimens placed in formalin, submitted to pathology. Follow-up CT images demonstrated a small amount of air within the target lesion, and a small superficial hematoma at the puncture site. The patient otherwise tolerated the procedure well, without immediate complication. Total dose length product 900 mGycm. CTDIvol(s) 4, 6.7 x 9 mGy. Radiation dose was minimized using automated exposure control Comparison: none Findings: Intraoperative images document successful needle placement into the target lesion. Final images demonstrate small superficial hematoma at the puncture site Impression: Apparently successful right lung mass biopsy, as described. Final pathology pending The pulmonary arteries are well-opacified. No intraluminal filling defects or other findings to suggest acute pulmonary embolus are evident. The main pu lmonary artery is dilated, measuring 4.3 cm in diameter, and the right and left pulmonary arteries are also dilated. The ascending thoracic aorta is ectatic although not frankly aneurysmal, measuring up to 4.3 cm in diameter. There is a mass in the right upper lobe. This demonstrates peripheral enhancement, central attenuations just above necrosis. This measures 7 x 6.5 x 7 cm. There is right hilar adenopathy, with multiple nodes in the right hilum, largest measuring 4 cm in diameter, also demonstrating some central low-attenuation. There is also mediastinal lymphadenopathy, the largest precarinal node measuring 3.7 cm long axis dimension. The lymphadenopathy results in mild narrowing of some of the segmental pulmonary arteries. The lungs are hyperinflated. There is centrilobular emphysema and bilateral bullous changes, the latter predominantly in the upper lobes but with also considerable mostly interstitial bullae in the lower lobes. Areas of scarring are demonstrated bilaterally. There is a small left pleural effusion No infiltrates are demonstrated. The heart size is normal. There is a pericardial effusion mostly anteriorly which measures up to 11 mm in thickness. The included thyroid is unremarkable. There is bilateral gynecomastia. There is diffuse mild edema of the subcutaneous fat. Please refer to report of abdominal pelvic CT performed the same time for findings in the upper abdomen. Impression: Negative for evidence of acute pulmonary embolus or other acute pulmonary pathology. 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 Pericardial effusion Incidental finding of bilateral gynecomastia Evidence of mild anasarca, with diffuse edema of the subcutaneous fat. (3) Chest pain Pedro Burtno Jul 31, 2020 16:08
--- NOTE | 2020-07-31 16:26 | NUR ---
INSURANCE CLINCALS AND REVIEW FAXED TO [facility] T: [phone] F: [phone] AND [facility] T: [phone] [id number] F: [phone]
--- NOTE | 2020-07-31 16:29 | NUR ---
*-*DISCHARGE PLANNING*-* PATIENT HAS BEEN REFERRED TO: [facility] P: [phone] S/W RUPALI, WILL CALL BACK AFTER REVIEW [facility] P: [phone] S/W RITU, NOT ACCEPTING ANY ADMISSIONS AT THE MOMENT, DUE TO COVID.
--- NOTE | 2020-07-31 16:36 | NUR ---
*-*DISCHARGE PLANNING*-* PATIENT HAS BEEN REFERRED TO: [facility] P: [phone] S/W RUPALI, ADMISSION WILL FOLLOW UP TOMORROW 08/01/2020.
--- NOTE | 2020-07-31 17:17 | NUR ---
*-*DISCHARGE PLANNING*-* CLINICALS HAVE BEEN FAXED TO: [facility] P:[phone], STATED WILL HAVE HIS TEAM FIND PLACEMENT, AND WILL FOLLOW UP TOMORROW 08/01/2020 Addendum: 07/31/20 at 1722 by CÉSAR GUAMAN CM DISREGARD ABOVE NOTE, WRONG PATIENT, WRONG DOCUMENTATION.
--- NOTE | 2020-07-31 17:25 | NUR ---
*-*DISCHARGE PLANNING*-* PATIENT HAS BEEN REFERRED TO: [facility] P: [phone] S/W RUPALI, ADMISSION WILL FOLLOW UP TOMORROW 08/01/2020.
--- NOTE | 2020-07-31 19:00 | NUR ---
NURSE NOTES: Received report from Rosy IRWIN. Pt. is in bed, awake, alert, verbally responsive. With O2@ 6lpm via Venturi mask, tolerating well. With gt, patent and intact when checked. HOB kept elevated for aspiration precaution and maximum lung expansion. No facial grimacing noted. With bed in it's lowest position, with alarm on and locked. Will continue with plan of care.
--- NOTE | 2020-07-31 19:40 | NUR ---
NURSE HAND-OFF: Important Events on Shift:[new GT placed today, feeding tolerating well, skin management, IV ATB] Patient Status: [stable] Diet: [Glucerna 1.5 at 50 cc goal] Pending Orders: [] Pending Results/Labs:[] Pending MD notification:[] Latest Vital Signs: Temperature 98.6 , Pulse 97 , B/P 135 /80 , Respiratory Rate 20 , O2 SAT 97 , Venturi Mask, O2 Flow Rate 6 . Vital Sign Comment: [] Latest Knox Fall Score: 75 Fall Risk: High Risk Safety Measures: Call light Within Reach, Bed Alarm Zone 2, Side Rails Side Rails x3, Bed position Low and Locked. Fall Precautions: Yellow Socks Yellow Gown Door Sign Patient Fall Education Report given to [George, RN].
[2020-07-31] MEDS: Atorvastatin 80mg tab ORAL SCH (21:23)
--- NOTE | 2020-07-31 23:05 | Psychiatric Progress Note ---
Psychiatry Progress Note Psychiatry Progress Note Medications Current Medications Medications (Trade) Dose Ordered Sig/Jordan Route PRN Reason Start Time Stop Time Status Last Admin Dose Admin Acetaminophen (Tylenol) 650 mg Q4H PRN ORAL Mild Pain (Pain Scale 1-3) 07/24/20 22:00 08/23/20 21:59 Aspirin (ASA) 81 mg DAILY ORAL 07/25/20 09:00 09/08/20 08:59 07/30/20 08:31 Atorvastatin Calcium (Lipitor) 80 mg BEDTIME ORAL 07/25/20 21:00 10/23/20 20:59 07/31/20 21:23 Carbidopa/Levodopa (Sinemet 10/100) 1 tab THREE TIMES A DAY ORAL 07/26/20 18:00 08/25/20 17:59 07/31/20 17:39 Dexamethasone Sodium Phosphate (Decadron 4mg/ml vial) 2 mg Q6HR IVP 07/28/20 12:00 10/23/20 11:59 07/31/20 17:40 Heparin Sodium (Porcine) (Heparin 5000 units/ml) 5,000 units EVERY 12 HOURS SUBQ 07/25/20 21:00 09/08/20 20:59 07/31/20 21:25 Hydralazine HCl (Apresoline) 25 mg Q6HR PRN ORAL For High Blood Pressure >170 07/25/20 12:45 10/23/20 12:44 Metoprolol Tartrate (Lopressor) 25 mg Q12HR ORAL 07/25/20 21:00 10/23/20 20:59 07/31/20 21:23 Ondansetron HCl (Zofran) 4 mg Q4H PRN IVP Nausea & Vomiting 07/24/20 22:00 08/23/20 21:59 Quetiapine Fumarate (SEROqueL) 50 mg BEDTIME ORAL 07/26/20 21:00 09/09/20 20:59 07/31/20 21:23 Neurological/Psychiatric: Reports: anxiety, depressed, emotional problems; Denies: no symptoms, headache, numbness, paresthesia, pre-existing deficit, seizure, tingling, tremors, weakness, other Allergies: Coded Allergies: No Known Allergies (Unverified , 07/24/20) Objective Data Height (Feet): 5 Height (Inches): 8.00 Weight (Pounds): 174 General Appearance: no apparent distress, alert, confused, agitated Additional Comments: awake, oriented to self only, confused, disoriented. Mood is agitated. Affect is flat. Thought process, there is a paucity of thought content. Thought content, no suicidal or homicidal ideation. Cognition is impaired. Insight and judgment, impaired. Assessment/Plan [place] I: ASSESSMENT: [place] I Dementia with behavior disturbance. Acute toxic encephalopathy. [place] II Deferred. [place] III Emphysema. [place] IV Low. [place] V 20. PLAN: 1. Seroquel 25 mg at bedtime. 2. Discussed with the nurse and primary physician. Status Narrative ASSESSMENT: [place] I Dementia with behavior disturbance. Acute toxic encephalopathy. [place] II Deferred. [place] III Emphysema. [place] IV Low. [place] V 20. PLAN: 1. Seroquel 25 mg at bedtime. 2. Discussed with the nurse and primary physician. Assessment/Plan: ASSESSMENT: [place] I Dementia with behavior disturbance. Acute toxic encephalopathy. [place] II Deferred. [place] III Emphysema. [place] IV Low. [place] V 20. PLAN: 1. Seroquel 25 mg at bedtime. 2. Discussed with the nurse and primary physician. Froilan Lee MD Jul 31, 2020 23:05
--- NOTE | 2020-07-31 23:28 | General Progress Note ---
Subjective Date patient seen: Jul 31, 2020 ROS Limited/Unobtainable: Yes Allergies: Coded Allergies: No Known Allergies (Unverified , 07/24/20) Subjective ROS Limited/Unobtainable: Yes - Patient with advanced Parkinson's/dementia unable to follow any current commands or answer question appropriately Allergies: Coded Allergies: No Known Allergies (Unverified , 07/24/20) Subjective No acute events overnight. Patient went for PEG tube placement today. Patient lying in bed, no acute distress. Able to speak today, though was mostly incoherent but stated no when asked if having pain. Objective Last 24 Hour Vital Signs Date Time Temp Pulse Resp B/P (MAP) Pulse Ox O2 Delivery O2 Flow Rate FiO2 07/31/20 21:23 76 125/81 07/31/20 20:00 97.2 88 18 146/75 (98) 100 07/31/20 19:30 96 Venturi Mask 6.0 31 07/31/20 16:00 98.6 97 20 135/80 (98) 97 07/31/20 12:30 97.7 89 20 112/77 99 Venturi Mask 6 07/31/20 12:25 88 18 99 07/31/20 12:24 80 18 98 07/31/20 12:15 79 17 147/74 98 Venturi Mask 6 07/31/20 12:10 77 18 138/81 97 Venturi Mask 6 07/31/20 12:06 98.4 73 15 112/74 98 Venturi Mask 6 07/31/20 09:00 Venturi Mask 6.0 07/31/20 08:04 88 129/85 07/31/20 08:00 98.6 83 20 143/73 (96) 97 07/31/20 04:00 97.8 88 20 138/85 (102) 96 07/31/20 00:00 98.1 90 20 138/90 (106) 96 Intake and Output 07/30/20 07/31/20 19:00 07:00 # Voids 1 1 Laboratory Tests 07/31/20 05:04: White Blood Count 9.7, Red Blood Count 3.62L, Hemoglobin 11.3L, Hematocrit 35.0L , Mean Corpuscular Volume 97, Mean Corpuscular Hemoglobin 31.2H, Mean Corpuscular Hemoglobin Concent 32.3, Red Cell Distribution Width 14.4, Platelet Count 161, Mean Platelet Volume 6.9, Neutrophils (%) (Auto) 70.1, Lymphocytes (%) (Auto) 19.0L, Monocytes (%) (Auto) 9.7, Eosinophils (%) (Auto) 0.2, Basophils (%) (Auto) 0.9, Carcinoembryonic Antigen [Pending], CA 19-9 Antigen [Pending] Height (Feet): 5 Height (Inches): 8.00 Weight (Pounds): 174 Objective General Appearance: confused but verbalizing in incoherent speech, no acute distress EENT: PERRL/EOMI Neck: non-tender Cardiovascular: normal rate, regular rhythm, no JVD Respiratory/Chest: chest wall non-tender, lungs clear, normal breath sounds Abdomen: normal bowel sounds, non tender, soft, fresh PEG tube in place Extremities: other - In restraints Edema: no edema noted Arm (L), no edema noted Arm (R), no edema noted Leg (L), no edema noted Leg (R), no edema noted Pedal (L), no edema noted Pedal (R), no edema noted Generalized Neurologic: fire marshal II-XII grossly normal, alert Skin: normal pigmentation, warm/dry Assessment/Plan Assessment/Plan: 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 # Hypercalcemia 2/2 Malignancy (MM) vs vs paraneoplastic syndrome ( squamous cell cancer)improving # Acute vs Chronic Encephalopathy 2/2 Hypercalcemia, worsening Parkinson/dementia # PEG status # Atypical Chest Pain w/ ACS r/o # New vs Paroxsymal Afib # Pulmonary HTN likely Class 3 # New vs Chronic HFpEF 2/2 ischemic vs non-ischemic vs tachyarrhythmia induced cardiomyopathy - compensated # Chronic Respiratory Failure on home O2 # Normocytic Anemia 2/2 ACD vs DEYANIRA # Hx of COPD # Hx of Dementia # ?Parkinson's related dementia # Essential HTN P: - hemodynamically stable - continue simple mask due to desaturation, Keep O2 > 88% - duonebs prn - GI Dr. Diego consulted, plan for PEG tube - per Heme/Onc note, biopsy results show SCC of lung - outpatient PET per heme/onc - ECHO: EF 60%, mild diastolic dysfunction, RSVP 65 - CHADVASC: 4, pericardial no anticoagulation due to high bleeding risk, continue aspirin - keep K > 4, Mg > 2 - metoprolol 25 mg BID - monitor renal function - s/p Pamidronate - off fluids, lasix - calcium normalized - f/u SPEP, Immunofixation, LDH, B2 microglobulin - consult Dr. Chester, Pulm, recs appreciated - consult Dr. Otero, Cardio, recs appreciated - consult Dr. Laura, Heme/onc, recs appreciated - CM/SW - Today, again tried calling son and daughter Yusuf and Homer nava to discuss rn long term care goals of care on both home and cell numbers, however, unable to reach them. Will continue to try. CODE: Full Diet: Tube feeding per GI clearance through PEG tube GI: none DVT: Heparin 5000U BID Dispo: SW for POA and medical decision making; d/c SNF once stable Time spent on this encounter was 36 minutes which included 20 minutes of counseling and care coordination. I discussed with the nurse at bedside. Time of note may not reflect time patient was seen. Yamil Murphy M.D. Jul 31, 2020 23:28
[2020-08-01] VITALS: BP 143/70
[2020-08-01 04:00] VITALS: BP 139/72
--- NOTE | 2020-08-01 04:11 | NUR ---
NURSE NOTES: Checked GT patency, patent and intact when checked. All due meds given GT, with 3-5 cc residual noted, well tolerated. Turned and repositioned q2h for comfort and circulation. Slept at short intervals. On continued jayla. soft wrist restraints for trying to pull out gt and other contrations; released every 2 hours, circulation checked and skin assessment. HOB kept elevated for maximum lung expansion and aspiration precaution. Increased 10cc to GT rate @ 2000H and 10cc @ 0200AM, able to tolerate well. No residual noted. Noted to be restless when awake and trying to pull out contraptions, reinforcement given but unable to follow due to poor cognition. Wound dressing and treatment done, kept clean and dry at all times. Visual check at frequent times. Vital signs within stable. Will continue with plan of care.
[2020-08-01 06:42] LABS: HEMATOCRIT 37.4 % (42.0-52.0); HEMOGLOBIN 11.8 G/DL (14.2-18.0); MEAN CORPUSCULAR VOLUME 97 FL (80-99); PLATELET COUNT 166 K/UL (150-450); RED BLOOD COUNT 3.84 M/UL (4.70-6.10); RED CELL DISTRIBUTION WIDTH 15.1 % (11.6-14.8); WHITE BLOOD COUNT 14.6 K/UL (4.8-10.8)
--- NOTE | 2020-08-01 06:50 | Hematology/Onc Progress Note ---
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 does occur with malignancy, unlikely is new primary # Acute vs Chronic Encephalopathy 2/2 Hypercalcemia, worsening Parkinson/dementia --> r/o infectious etiology # Normocytic Anemia 2/2 ACD vs DEYANIRA --> anemia panel if lower # Pulmonary HTN likely Class 3 # ?Chronic HFpEF 2/2 ischemic vs non-ischemic vs tachyarrhythmia induced cardiomyopathy - compensated # ?Chronic Respiratory Acidosis on home O2 # Hx of COPD # Hx of Dementia # Dysphagia s/p gtube # Essential HTN Appreciate consultation and dw RN Subjective HEENT: Denies: no symptoms, eye pain, blurred vision, tearing, double vision, ear pain, ear discharge, nose pain, nose congestion, throat pain, throat swelling, mouth pain, mouth swelling, other Cardiovascular: Denies: no symptoms, chest pain, edema, irregular heart rate, lightheadedness, palpitations, syncope, other Gastrointestinal/Abdominal: Denies: no symptoms, abdomen distended, abdominal pain, black stools, tarry stools, blood in stool, constipated, diarrhea, difficulty swallowing, nausea, poor appetite, poor fluid intake, rectal bleeding, vomiting, other Genitourinary: Denies: no symptoms, burning, discharge, frequency, flank pain, hematuria, incontinence, pain, urgency, other Neurologic/Psychiatric: Denies: no symptoms, anxiety, depressed, emotional problems, headache, numbness, paresthesia, pre-existing deficit, seizure, tingling, tremors, weakness, other Endocrine: Denies: no symptoms, excessive sweating, flushing, intolerance to cold, intolerance to heat, increased hunger, increased thirst, increased urine, unexplained weight gain, unexplained weight loss, other Hematologic/Lymphatic: Denies: no symptoms, anemia, easy bleeding, easy bru ising, adenopathy, other Allergies: Coded Allergies: No Known Allergies (Unverified , 07/24/20) Subjective 07/28 on restraints, on 14L on venturi mask, no bleeding, meds noted, hgb 10.5, biopsy done 07/26 07/29 on restraints, venturi mask, labs have been reviewed, meds noted 07/30 on restraints, confused, is on 6l, no bleeding, labs noted 07/31 with peg and egd potentially today as per GI, no bleeding, meds noted 08/01 meds noted, labs reviewed, no bleeding noted Objective Objective Current Medications Medications (Trade) Dose Ordered Sig/Jordan Route PRN Reason Start Time Stop Time Status Last Admin Dose Admin Acetaminophen (Tylenol) 650 mg Q4H PRN ORAL Mild Pain (Pain Scale 1-3) 07/24/20 22:00 08/23/20 21:59 Aspirin (ASA) 81 mg DAILY ORAL 07/25/20 09:00 09/08/20 08:59 07/30/20 08:31 Atorvastatin Calcium (Lipitor) 80 mg BEDTIME ORAL 07/25/20 21:00 10/23/20 20:59 07/31/20 21:23 Carbidopa/Levodopa (Sinemet 10/100) 1 tab THREE TIMES A DAY ORAL 07/26/20 18:00 08/25/20 17:59 07/31/20 17:39 Dexamethasone Sodium Phosphate (Decadron 4mg/ml vial) 2 mg Q6HR IVP 07/28/20 12:00 10/23/20 11:59 08/01/20 00:21 Heparin Sodium (Porcine) (Heparin 5000 units/ml) 5,000 units EVERY 12 HOURS SUBQ 07/25/20 21:00 09/08/20 20:59 07/31/20 21:25 Hydralazine HCl (Apresoline) 25 mg Q6HR PRN ORAL For High Blood Pressure >170 07/25/20 12:45 10/23/20 12:44 Metoprolol Tartrate (Lopressor) 25 mg Q12HR ORAL 07/25/20 21:00 10/23/20 20:59 07/31/20 21:23 Ondansetron HCl (Zofran) 4 mg Q4H PRN IVP Nausea & Vomiting 07/24/20 22:00 08/23/20 21:59 Quetiapine Fumarate (SEROqueL) 50 mg BEDTIME ORAL 07/26/20 21:00 09/09/20 20:59 07/31/20 21:23 Last 24 Hour Vital Signs Date Time Temp Pulse Resp B/P (MAP) Pulse Ox O2 Delivery O2 Flow Rate FiO2 07/31/20 21:23 76 125/81 07/31/20 21:00 Venturi Mask 6.0 07/31/20 20:00 97.2 88 18 146/75 (98) 100 07/31/20 19:30 96 Venturi Mask 6.0 31 07/31/20 16:00 98.6 97 20 135/80 (98) 97 07/31/20 12:30 97.7 89 20 112/77 99 Venturi Mask 6 07/31/20 12:25 88 18 99 07/31/20 12:24 80 18 98 07/31/20 12:15 79 17 147/74 98 Venturi Mask 6 07/31/20 12:10 77 18 138/81 97 Venturi Mask 6 07/31/20 12:06 98.4 73 15 112/74 98 Venturi Mask 6 07/31/20 09:00 Venturi Mask 6.0 07/31/20 08:04 88 129/85 07/31/20 08:00 98.6 83 20 143/73 (96) 97 07/31/20 04:00 97.8 88 20 138/85 (102) 96 07/31/20 00:00 98.1 90 20 138/90 (106) 96 07/30/20 21:00 Venturi Mask 6.0 07/30/20 20:32 97 146/93 07/30/20 20:00 97.7 97 20 146/93 (110) 96 07/30/20 19:29 96 Venturi Mask 6.0 31 07/30/20 16:00 98.1 89 20 121/80 (94) 99 07/30/20 12:00 98.1 72 20 122/77 (92) 99 07/30/20 09:00 Venturi Mask 6.0 07/30/20 08:41 95 Venturi Mask 6.0 31 07/30/20 08:31 87 148/83 07/30/20 08:00 97.8 87 20 143/70 (94) 98 Intake and Output 07/31/20 08/01/20 19:00 07:00 Intake Total 130 ml 210 ml Balance 130 ml 210 ml Intake Oral 30 ml Free Water 150 ml IV Total 130 ml Tube Feeding 30 ml # Voids 3 4 Labs Test 07/29/20 07:20 07/30/20 06:15 07/31/20 05:04 08/01/20 05:45 Sodium Level 136 MMOL/L (136-145) 139 MMOL/L (136-145) Potassium Level 3.4 MMOL/L (3.5-5.1) 4.1 MMOL/L (3.5-5.1) Chloride Level 103 MMOL/L (98-107) 107 MMOL/L (98-107) Carbon Dioxide Level 31 MMOL/L (21-32) 29 MMOL/L (21-32) Anion Gap 2 mmol/L (5-15) 3 mmol/L (5-15) Blood Urea Nitrogen 30 mg/dL (7-18) 32 mg/dL (7-18) Creatinine 1.1 MG/DL (0.55-1.30) 1.1 MG/DL (0.55-1.30) Estimat Glomerular Filtration Rate > 60 mL/min (>60) > 60 mL/min (>60) Glucose Level 113 MG/DL (74-106) 125 MG/DL (74-106) Calcium Level 10.4 MG/DL (8.5-10.1) 9.6 MG/DL (8.5-10.1) Ionized Calcium (Measured) 1.39 mmol/L (1.10-1.35) Phosphorus Level 2.2 MG/DL (2.5-4.9) 3.1 MG/DL (2.5-4.9) Magnesium Level 1.6 MG/DL (1.8-2.4) 2.0 MG/DL (1.8-2.4) White Blood Count 9.0 K/UL (4.8-10.8) 9.7 K/UL (4.8-10.8) Red Blood Count 3.75 M/UL (4.70-6.10) 3.62 M/UL (4.70-6.10) Hemoglobin 11.7 G/DL (14.2-18.0) 11.3 G/DL (14.2-18.0) Hematocrit 36.1 % (42.0-52.0) 35.0 % (42.0-52.0) Mean Corpuscular Volume 96 FL (80-99) 97 FL (80-99) Mean Corpuscular Hemoglobin 31.2 PG (27.0-31.0) 31.2 PG (27.0-31.0) Mean Corpuscular Hemoglobin Concent 32.4 G/DL (32.0-36.0) 32.3 G/DL (32.0-36.0) Red Cell Distribution Width 14.4 % (11.6-14.8) 14.4 % (11.6-14.8) Platelet Count 205 K/UL (150-450) 161 K/UL (150-450) Mean Platelet Volume 7.6 FL (6.5-10.1) 6.9 FL (6.5-10.1) Neutrophils (%) (Auto) 70.5 % (45.0-75.0) 70.1 % (45.0-75.0) Lymphocytes (%) (Auto) 21.8 % (20.0-45.0) 19.0 % (20.0-45.0) Monocytes (%) (Auto) 6.8 % (1.0-10.0) 9.7 % (1.0-10.0) Eosinophils (%) (Auto) 0.0 % (0.0-3.0) 0.2 % (0.0-3.0) Basophils (%) (Auto) 0.9 % (0.0-2.0) 0.9 % (0.0-2.0) Height (Feet): 5 Height (Inches): 8.00 Weight (Pounds): 174 Objective Physical Exam General appearance: alert, cooperative, no distress Heent: Normocephalic, without obvious abnormality, atraumatic, EOM's intact. Fundi benign supple, symmetrical, trachea midline, no adenopathy Lungs: clear to auscultation bilaterally CV: irr irr, S1, S2 normal, no murmur, click, rub or gallop Abd: soft, non-tender. Bowel sounds normal ++gt Extremities: extremities normal, no cce Pulses: 2+ and symmetric Skin: Skin color, texture, turgor normal Neurologic: Grossly normal Al Laura MD Aug 01, 2020 06:50
[2020-08-01 07:10] LABS: ANION GAP 4 mmol/L (5-15); BLOOD UREA NITROGEN 34 mg/dL (7-18); CALCIUM 9.2 MG/DL (8.5-10.1); CARBON DIOXIDE 30 MMOL/L (21-32); CHLORIDE 111 MMOL/L (98-107); CREATININE 1.2 MG/DL (0.55-1.30); POTASSIUM 3.4 MMOL/L (3.5-5.1); SODIUM 145 MMOL/L (136-145)
--- NOTE | 2020-08-01 07:42 | NUR ---
NURSE HAND-OFF: Important Events on Shift:gt started to gradually increased to goal of 50cc/hr Patient Status: Diet: Glucerna 1.5 Pending Orders: Pending Results/Labs: Pending MD notification: Latest Vital Signs: Temperature 97.1 , Pulse 79 , B/P 139 /72 , Respiratory Rate 21 , O2 SAT 100 , Venturi Mask, O2 Flow Rate 6.0 . Vital Sign Comment: Latest Knox Fall Score: 75 Fall Risk: High Risk Safety Measures: Call light Within Reach, Bed Alarm Zone 2, Side Rails Side Rails x3, Bed position Low and Locked. Fall Precautions: Yellow Socks Yellow Gown Door Sign Patient Fall Education Report given to Epifanio IRWIN.
--- NOTE | 2020-08-01 07:50 | NUR ---
NURSE NOTES: Received report from George Horta RN. Patient in semi-Rodriguez's position, Venturi mask on, soft care mattress, bed in lowest position, call light within reach, bilateral soft wrist restraints on, in no apparent distress.
[2020-08-01 08:00] VITALS: BP 126/57
--- NOTE | 2020-08-01 08:05 | NUR ---
NURSE NOTES: Reported potassium=3.[address] Terence Garcia and received order for potassium replacement.
--- NOTE | 2020-08-01 09:05 | Pulmonology Progress Note ---
Subjective ROS Limited/Unobtainable: Yes Interval Events: CXR reviewed; unchanged Constitutional: Reports: no symptoms HEENT: Repors: no symptoms Respiratory: Reports: no symptoms Cardiovascular: Reports: no symptoms Gastrointestinal/Abdominal: Reports: no symptoms Genitourinary: Reports: no symptoms Allergies: Coded Allergies: No Known Allergies (Unverified , 07/24/20) All Systems: reviewed and negative except above Objective Last 24 Hour Vital Signs Date Time Temp Pulse Resp B/P (MAP) Pulse Ox O2 Delivery O2 Flow Rate FiO2 08/01/20 08:00 97.8 71 16 126/57 (80) 95 08/01/20 04:00 97.1 79 21 139/72 (94) 100 08/01/20 00:00 98.2 88 18 143/70 (94) 100 07/31/20 21:23 76 125/81 07/31/20 21:00 Venturi Mask 6.0 07/31/20 20:00 97.2 88 18 146/75 (98) 100 07/31/20 19:30 96 Venturi Mask 6.0 31 07/31/20 16:00 98.6 97 20 135/80 (98) 97 07/31/20 12:30 97.7 89 20 112/77 99 Venturi Mask 6 07/31/20 12:25 88 18 99 07/31/20 12:24 80 18 98 07/31/20 12:15 79 17 147/74 98 Venturi Mask 6 07/31/20 12:10 77 18 138/81 97 Venturi Mask 6 07/31/20 12:06 98.4 73 15 112/74 98 Venturi Mask 6 Intake and Output 07/31/20 08/01/20 19:00 07:00 Intake Total 130 ml 210 ml Balance 130 ml 210 ml Intake Oral 30 ml Free Water 150 ml IV Total 130 ml Tube Feeding 30 ml # Voids 3 4 General Appearance: no acute distress HEENT: normocephalic Respiratory: chest wall non-tender, decreased breath sounds Cardiovascular: normal peripheral pulses, normal rate Abdomen: normal bowel sounds Extremities: no cyanosis Laboratory Tests 08/01/20 05:45: White Blood Count 14.6#H, Red Blood Count 3.84L, Hemoglobin 11.8L, Hematocrit 37.4L, Mean Corpuscular Volume 97, Mean Corpuscular Hemoglobin 30.8, Mean Corpuscular Hemoglobin Concent 31.6L, Red Cell Distribution Width 15.1H, Plat elet Count 166, Mean Platelet Volume 7.5, Neutrophils (%) (Auto) , Lymphocytes (%) (Auto) , Monocytes (%) (Auto) , Eosinophils (%) (Auto) , Basophils (%) (Auto) , Differential Total Cells Counted 100, Neutrophils % (Manual) 94H, Lymphocytes % (Manual) 3L, Monocytes % (Manual) 3, Eosinophils % (Manual) 0, Basophils % (Manual) 0, Band Neutrophils 0, Platelet Estimate Adequate, Platelet Morphology Normal, Anisocytosis 1+, Sodium Level 145, Potassium Level 3.4L, Chloride Level 111H, Carbon Dioxide Level 30, Anion Gap 4L, Blood Urea Nitrogen 34H, Creatinine 1.2, Estimat Glomerular Filtration Rate > 60, Glucose Level 139H , Calcium Level 9.2, Phosphorus Level 2.0L, Magnesium Level 2.1 Current Medications Medications (Trade) Dose Ordered Sig/Jordan Route PRN Reason Start Time Stop Time Status Last Admin Dose Admin Acetaminophen (Tylenol) 650 mg Q4H PRN ORAL Mild Pain (Pain Scale 1-3) 07/24/20 22:00 08/23/20 21:59 Aspirin (ASA) 81 mg DAILY ORAL 07/25/20 09:00 09/08/20 08:59 07/30/20 08:31 Atorvastatin Calcium (Lipitor) 80 mg BEDTIME ORAL 07/25/20 21:00 10/23/20 20:59 07/31/20 21:23 Carbidopa/Levodopa (Sinemet 10/100) 1 tab THREE TIMES A DAY ORAL 07/26/20 18:00 08/25/20 17:59 07/31/20 17:39 Dexamethasone Sodium Phosphate (Decadron 4mg/ml vial) 2 mg Q6HR IVP 07/28/20 12:00 10/23/20 11:59 08/01/20 06:00 Heparin Sodium (Porcine) (Heparin 5000 units/ml) 5,000 units EVERY 12 HOURS SUBQ 07/25/20 21:00 09/08/20 20:59 07/31/20 21:25 Hydralazine HCl (Apresoline) 25 mg Q6HR PRN ORAL For High Blood Pressure >170 07/25/20 12:45 10/23/20 12:44 Metoprolol Tartrate (Lopressor) 25 mg Q12HR ORAL 07/25/20 21:00 10/23/20 20:59 07/31/20 21:23 Ondansetron HCl (Zofran) 4 mg Q4H PRN IVP Nausea & Vomiting 07/24/20 22:00 08/23/20 21:59 Potassium Chloride (K-Dur) 40 meq ONCE ORAL 08/01/20 08:15 08/01/20 09:30 Quetiapine Fumarate (SEROqueL) 50 mg BEDTIME ORAL 07/26/20 21:00 09/09/20 20:59 07/31/20 21:23 Assessment/Plan Assessment/Plan IMPRESSION: 1. Hypercalcemia, suspect secondary to malignancy. 2. Lung mass. 3. Emphysema. 4. Hypertension. DISCUSSION: Off IV fluid hydration. Will continue maintainance fluids as pt is NPO S/P CT-guided lung biopsy. Continue Decadron Continue O2 Decrease FiO2 Minimize sedation Oly Lara Omar Syed MD Aug 01, 2020 09:05
--- NOTE | 2020-08-01 09:20 | Nephrology Progress Note ---
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 # Pulmonary HTN likely Class 3 # Hypercalcemia 2/2 ?Malignancy (MM) vs vs paraneoplastic syndrome ( squamous cell cancer) vs PHPTH # ?Chronic HFpEF 2/2 ischemic vs non-ischemic vs tachyarrhythmia induced cardiomyopathy - compensated # ?Chronic Respiratory Acidosis on home O2 # Normocytic Anemia 2/2 ACD vs DEYANIRA # Hx of COPD # Hx of Dementia # ?Parkinson's related dementia # Essential HTN - S/P CT-guided lung biopsy--> 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 - monitor free calcium - s/p pamindronate - trial of sinemet for tremors - pulm eval - surg eval - monitor calcium level - continue with steroids - monitor BP - avoid nephrotoxins Subjective Subjective S/P CT-guided lung biopsy intermittently agitated and combative continues to have tremors sinemet added s/p PEG path showing 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 Objective Objective Last 24 Hour Vital Signs Date Time Temp Pulse Resp B/P (MAP) Pulse Ox O2 Delivery O2 Flow Rate FiO2 08/01/20 08:00 97.8 71 16 126/57 (80) 95 08/01/20 04:00 97.1 79 21 139/72 (94) 100 08/01/20 00:00 98.2 88 18 143/70 (94) 100 07/31/20 21:23 76 125/81 07/31/20 21:00 Venturi Mask 6.0 07/31/20 20:00 97.2 88 18 146/75 (98) 100 07/31/20 19:30 96 Venturi Mask 6.0 31 07/31/20 16:00 98.6 97 20 135/80 (98) 97 07/31/20 12:30 97.7 89 20 112/77 99 Venturi Mask 6 07/31/20 12:25 88 18 99 07/31/20 12:24 80 18 98 07/31/20 12:15 79 17 147/74 98 Venturi Mask 6 07/31/20 12:10 77 18 138/81 97 Venturi Mask 6 07/31/20 12:06 98.4 73 15 112/74 98 Venturi Mask 6 Intake and Output 07/31/20 08/01/20 19:00 07:00 Intake Total 130 ml 210 ml Balance 130 ml 210 ml Intake Oral 30 ml Free Water 150 ml IV Total 130 ml Tube Feeding 30 ml # Voids 3 4 Laboratory Tests 08/01/20 05:45: White Blood Count 14.6#H, Red Blood Count 3.84L, Hemoglobin 11.8L, Hematocrit 37.4L, Mean Corpuscular Volume 97, Mean Corpuscular Hemoglobin 30.8, Mean Corpuscular Hemoglobin Concent 31.6L, Red Cell Distribution Width 15.1H, Platelet Count 166, Mean Platelet Volume 7.5, Neutrophils (%) (Auto) , Lymphocytes (%) (Auto) , Monocytes (%) (Auto) , Eosinophils (%) (Auto) , Basophils (%) (Auto) , Differential Total Cells Counted 100, Neutrophils % (Ma nual) 94H, Lymphocytes % (Manual) 3L, Monocytes % (Manual) 3, Eosinophils % (Manual) 0, Basophils % (Manual) 0, Band Neutrophils 0, Platelet Estimate Adequate, Platelet Morphology Normal, Anisocytosis 1+, Sodium Level 145, Potassium Level 3.4L, Chloride Level 111H, Carbon Dioxide Level 30, Anion Gap 4L , Blood Urea Nitrogen 34H, Creatinine 1.2, Estimat Glomerular Filtration Rate > 60, Glucose Level 139H, Calcium Level 9.2, Phosphorus Level 2.0L, Magnesium Level 2.1 Height (Feet): 5 Height (Inches): 8.00 Weight (Pounds): 174 Terence Garcia M.D. Aug 01, 2020 09:20
[2020-08-01] MEDS: Aspirin Baby 81mg ORAL SCH (09:25)
[2020-08-01] MEDS: Levodopa/Carbidopa 10/100 tab ORAL SCH ×3 (09:25→18:43)
[2020-08-01] MEDS: Heparin 5000 units/ml inj SUBQ SCH ×2 (09:29→21:53)
[2020-08-01] MEDS ORDERED: Potassium Phosphate 20 MM in NS 275 ML IV ONE (11:00)
[2020-08-01 12:00] VITALS: BP 109/57
--- NOTE | 2020-08-01 12:26 | NUR ---
RD ASSESSMENT & RECOMMENDATIONS SEE CARE ACTIVITY FOR COMPLETE ASSESSMENT DAILY ESTIMATED NEEDS: Needs based on Pulmonary, cardiac, wound/ 72kg 25-30 kcals/kg 7188-6081 total kcals 1.25-1.5 g protein/kg 90-108 g total protein 25-30 mL/kg 3498-4568 total fluid mLs NUTRITION DIAGNOSIS: Swallowing difficulty R/T dysphagia, decreased cognitive fxn, respiratory status as evidenced by s/p PHYSICAL EDUCATION AIDE eval, rec for NPO, s/p PEG placement on 07/31, now on GT feeds, pt w/ h/o advanced Parkinson's and dementia, on venturi mask. CURRENT TF:Glucerna 1.5 @ 50ml/hr x 24 hrs ENTERAL NUTRITION RECOMMENDATIONS: Glucerna 1.5 @ 50ml/hr x 24 hrs to provide 1200ml, 1800kcal, 99g prot, 912ml free water - Maintain carb controlled TF of Glucerna 1.5 while on Decadron - Cont to increase TF slowly to goal rate - TF @ goal meets 100% est kcal/prot needs - HOB over 30 degrees/ 150ml q 4hrs ADDITIONAL RECOMMENDATIONS: * Calibrated bedscale wt * Monitor lytes, replete as needed (low K and phos) * Monitor BGs closely w/ Decadron, need for NISS * Wound healing: TF @ goal provides 100% RDI add Vit C 250mg QD, ZnSO4 220mg QD x 10 days
--- NOTE | 2020-08-01 14:58 | NUR ---
SCR[employer] PRO[employer] MANAGER NOTES SPOKE WITH NEVIN FROM [facility], MADE AWARE OF FAMILY REQUEST TO DC PT TO [facility]. INQUIRY FAXED TO NEVIN AND YAYO AT [place]. WERNER [phone] (P) [phone] (F)
--- NOTE | 2020-08-01 15:19 | General Progress Note ---
Subjective ROS Limited/Unobtainable: No Allergies: Coded Allergies: No Known Allergies (Unverified , 07/24/20) Objective Last 24 Hour Vital Signs Date Time Temp Pulse Resp B/P (MAP) Pulse Ox O2 Delivery O2 Flow Rate FiO2 08/01/20 12:00 97.9 63 19 109/57 (74) 100 08/01/20 09:25 71 126/57 08/01/20 09:00 Venturi Mask 6.0 Nasal Cannula 3.0 08/01/20 08:00 97.8 71 16 126/57 (80) 95 08/01/20 04:00 97.1 79 21 139/72 (94) 100 08/01/20 00:00 98.2 88 18 143/70 (94) 100 07/31/20 21:23 76 125/81 07/31/20 21:00 Venturi Mask 6.0 07/31/20 20:00 97.2 88 18 146/75 (98) 100 07/31/20 19:30 96 Venturi Mask 6.0 31 07/31/20 16:00 98.6 97 20 135/80 (98) 97 Intake and Output 07/31/20 08/01/20 19:00 07:00 Intake Total 130 ml 210 ml Balance 130 ml 210 ml Intake Oral 30 ml Free Water 150 ml IV Total 130 ml Tube Feeding 30 ml # Voids 3 4 Laboratory Tests 08/01/20 05:45: White Blood Count 14.6#H, Red Blood Count 3.84L, Hemoglobin 11.8L, Hematocrit 37.4L, Mean Corpuscular Volume 97, Mean Corpuscular Hemoglobin 30.8, Mean Corpuscular Hemoglobin Concent 31.6L, Red Cell Distribution Width 15.1H, Platelet Count 166, Mean Platelet Volume 7.5, Neutrophils (%) (Auto) , Lympho cytes (%) (Auto) , Monocytes (%) (Auto) , Eosinophils (%) (Auto) , Basophils (%) (Auto) , Differential Total Cells Counted 100, Neutrophils % (Manual) 94H, Lymphocytes % (Manual) 3L, Monocytes % (Manual) 3, Eosinophils % (Manual) 0, Basophils % (Manual) 0, Band Neutrophils 0, Platelet Estimate Adequate, Platelet Morphology Normal, Anisocytosis 1+, Sodium Level 145, Potassium Level 3.4L, Chloride Level 111H, Carbon Dioxide Level 30, Anion Gap 4L, Blood Urea Nitrogen 34H, Creatinine 1.2, Estimat Glomerular Filtration Rate > 60, Glucose Level 139H , Calcium Level 9.2, Phosphorus Level 2.0L, Magnesium Level 2.1 Height (Feet): 5 Height (Inches): 8.00 Weight (Pounds): 174 General Appearance: no apparent distress EENT: normal ENT inspection Neck: supple Cardiovascular: normal rate Respiratory/Chest: decreased breath sounds Abdomen: normal bowel sounds, non tender, soft Extremities: non-tender Assessment/Plan Problem List: (1) Dysphagia ICD Codes: R13.10 - Dysphagia, unspecified SNOMED: 46978066, 945791269 (2) Abdominal pain ICD Codes: R10.9 - Unspecified abdominal pain SNOMED: 99478139 (3) Chest pain ICD Codes: R07.9 - Chest pain, unspecified SNOMED: 44917219 Qualifiers: Qualified Codes: R07.9 - Chest pain, unspecified (4) Lung mass ICD Codes: R91.8 - Other nonspecific abnormal finding of lung field SNOMED: 247988701 Assessment/Plan: s/p GT placement GTF monitor for residual dc planning pending José Diego MD Aug 01, 2020 15:19
--- NOTE | 2020-08-01 15:41 | NUR ---
P.T Weekly Progress Notes: Pt seen this past week of skilled P.T services. Progress is limited by poor participation in therapy. Level of assist. fluctuates from SBA-MAX A for bed mobility and transfers depending on level of cooperation. Pt was only able to ambulate using the FWW with MIN A X 1 on the day of P.T evaluation since then gait training sessions were not performed due to uncooperative and resistive behavior. Will continue with POC.
[2020-08-01 16:00] VITALS: BP 127/59
--- NOTE | 2020-08-01 16:24 | NUR ---
CASE MANAGEMENT:REVIEW SI;PA-FIB. PULMONARY MASS. HYPERCALCEMIA S/P PEG PLACEMENT 98.4 79 21 139/72 95% 6L VENTURI WBC 14.6 K+ 3.4 BUN 34 BG 139 PHOS 2.0 IS;KCL IV ONCE DECADRON IV Q6 PRN HEPARIN SUBQ Q12 ASA GT QD SINEMET GT TID MED SURG STATUS DCP;FROM HOME PLAN; SNF PLACEMENT PER MD WILL REFER TO [facility]
--- NOTE | 2020-08-01 16:46 | NUR ---
SPEECH PATHOLOGY NOTE/DYSPHAGIA TX. PATIENT SEEN FOR DYSPHAGIA TX SESSION. HE WAS CLEARED BY RN CLAUDIA. THE PATIENT WAS ALERT, COOPERATIVE, AND AMENABLE TO INTERVENTION. HE WAS POSITIONED UPRIGHT IN BED FOR P.O. TRIALS. IN THE FIRST SESSION 2 DAYS AGO,, HE PRESENTED WITH SEVERE ORAL APRAXIA/SENSORIMOTOR DEFICITS, TODAY HE WAS PRESENTED WITH ICE CHIPS AND HE RESPONDED SIMILARLY WITH ABSENCE OF SWALLOW REFLEX. THE ICE CHIPS MELTED AND THE THIN LIQUID FELL BY GRAVITY INTO THE PHARYNX. NO COUGH OR THROAT CLEAR. PATIENTS VERBAL EXPRESSION IS SEVERELY IMPAIRED WITH LESS THAN 30% INTELLIGIBILITY. CLEARLY, HE IS HIGH RISK FOR ASPIRATION WITH SEVERELY IMPAIRED OROPHARYNGEAL PHASE OF SWALLOW. RECOMMENDATION: 1. CONTINUE NON/ORAL FEEDING MANAGEMENT 2. ST WITH P.O. TRIALS WHILE IN HOUSE. CONSIDER PEG VS PALLIATIVE/ COMFORT CENTERED CARE. (PER POLST: FULL CODE)
--- NOTE | 2020-08-01 16:53 | NUR ---
DISCHARGE PLANNING PATIENT HAS BEEN REFERRED TO [facility] P [phone] F [phone]
--- NOTE | 2020-08-01 17:47 | NUR ---
INSURANCE CLINCALS AND REVIEW FAXED TO [facility] T: [phone] F: [phone] AND [facility] T: [phone] [id number] F: [phone]
--- NOTE | 2020-08-01 18:12 | Surgery Progress Note ---
Surgery Progress Note Subjective Additional Comments no acute events no pain +bowel Objective Last 24 Hour Vital Signs Date Time Temp Pulse Resp B/P (MAP) Pulse Ox O2 Delivery O2 Flow Rate FiO2 08/01/20 16:00 98.4 71 18 127/59 (81) 99 08/01/20 12:00 97.9 63 19 109/57 (74) 100 08/01/20 09:25 71 126/57 08/01/20 09:00 Venturi Mask 6.0 Nasal Cannula 3.0 08/01/20 08:00 97.8 71 16 126/57 (80) 95 08/01/20 04:00 97.1 79 21 139/72 (94) 100 08/01/20 00:00 98.2 88 18 143/70 (94) 100 07/31/20 21:23 76 125/81 07/31/20 21:00 Venturi Mask 6.0 07/31/20 20:00 97.2 88 18 146/75 (98) 100 07/31/20 19:30 96 Venturi Mask 6.0 31 I&O Intake and Output 07/31/20 08/01/20 19:00 07:00 Intake Total 130 ml 210 ml Balance 130 ml 210 ml Intake Oral 30 ml Free Water 150 ml IV Total 130 ml Tube Feeding 30 ml # Voids 3 4 Laboratory Tests Test 08/01/20 05:45 White Blood Count 14.6 K/UL (4.8-10.8) #H Red Blood Count 3.84 M/UL (4.70-6.10) L Hemoglobin 11.8 G/DL (14.2-18.0) L Hematocrit 37.4 % (42.0-52.0) L Mean Corpuscular Volume 97 FL (80-99) Mean Corpuscular Hemoglobin 30.8 PG (27.0-31.0) Mean Corpuscular Hemoglobin Concent 31.6 G/DL (32.0-36.0) L Red Cell Distribution Width 15.1 % (11.6-14.8) H Platelet Count 166 K/UL (150-450) Mean Platelet Volume 7.5 FL (6.5-10.1) Neutrophils (%) (Auto) % (45.0-75.0) Lymphocytes (%) (Auto) % (20.0-45.0) Monocytes (%) (Auto) % (1.0-10.0) Eosinophils (%) (Auto) % (0.0-3.0) Basophils (%) (Auto) % (0.0-2.0) Differential Total Cells Counted 100 Neutrophils % (Manual) 94 % (45-75) H Lymphocytes % (Manual) 3 % (20-45) L Monocytes % (Manual) 3 % (1-10) Eosinophils % (Manual) 0 % (0-3) Basophils % (Manual) 0 % (0-2) Band Neutrophils 0 % (0-8) Platelet Estimate Adequate Platelet Morphology Normal Anisocytosis 1+ Sodium Level 145 MMOL/L (136-145) Potassium Level 3.4 MMOL/L (3.5-5.1) L Chloride Level 111 MMOL/L (98-107) H Carbon Dioxide Level 30 MMOL/L (21-32) Anion Gap 4 mmol/L (5-15) L Blood Urea Nitrogen 34 mg/dL (7-18) H Creatinine 1.2 MG/DL (0.55-1.30) Estimat Glomerular Filtration Rate > 60 mL/min (>60) Glucose Level 139 MG/DL (74-106) H Calcium Level 9.2 MG/DL (8.5-10.1) Phosphorus Level 2.0 MG/DL (2.5-4.9) L Magnesium Level 2.1 MG/DL (1.8-2.4) Plan Problems: (1) Abdominal pain Assessment & Plan: resolved tolerating now no complaints likely constipation patient developing breakdown in sacral region noted and care plan initiated (2) Lung mass Assessment & Plan: ct guided biopsy pending path - noted lung CA heme once input noted likely neoplasm Prior imaging studies reviewed. Emergency physician consent was on the chart, improved mild risk management. Procedural timeout performed. Localizing spiral acquisitions obtained through the chest. Intended puncture site was marked, sterilely prepped and draped. Local anesthesia with 1% lidocaine. Under CT visualization, a 17-gauge guide needle was advanced into the periphery of the target lesion. Total 3 needle passes then made using coaxially inserted 18-gauge automated biopsy gun. Specimens placed in formalin, submitted to pathology. Follow-up CT images demonstrated a small amount of air within the target lesion, and a small superficial hematoma at the puncture site. The patient otherwise tolerated the procedure well, without immediate complication. Total dose length product 900 mGycm. CTDIvol(s) 4, 6.7 x 9 mGy. Radiation dose was minimized using automated exposure control Comparison: none Findings: Intraoperative images document successful needle placement into the target lesion. Final images demonstrate small superficial hematoma at the puncture site Impression: Apparently successful right lung mass biopsy, as described. Final pathology pending The pulmonary arteries are well-opacified. No intraluminal filling defects or other findings to suggest acute pulmonary embolus are evident. The main pulmonary artery is dilated, measuring 4.3 cm in diameter, and the right and left pulmonary arteries are also dilated. The ascending thoracic aorta is ectatic although not frankly aneurysmal, measuring up to 4.3 cm in diameter. There is a mass in the right upper lobe. This demonstrates peripheral enhancement, central attenuations just above necrosis. This measures 7 x 6.5 x 7 cm. There is right hilar adenopathy, with multiple nodes in the right hilum, largest measuring 4 cm in diameter, also demonstrating some central low-attenuation. There is also mediastinal lymphadenopathy, the largest precarinal node measuring 3.7 cm long axis dimension. The lymphadenopathy results in mild narrowing of some of the segmental pulmonary arteries. The lungs are hyperinflated. There is centrilobular emphysema and bilateral bullous changes, the latter predominantly in the upper lobes but with also considerable mostly interstitial bullae in the lower lobes. Areas of scarring are demonstrated bilaterally. There is a small left pleural effusion No infiltrates are demonstrated. The heart size is normal. There is a pericardial effusion mostly anteriorly which measures up to 11 mm in thickness. The included thyroid is unremarkable. There is bilateral gynecomastia. There is diffuse mild edema of the subcutaneous fat. Please refer to report of abdominal pelvic CT performed the same time for findings in the upper abdomen. Impression: Negative for evidence of acute pulmonary embolus or other acute pulmonary pathology. 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 Pericardial effusion Incidental finding of bilateral gynecomastia Evidence of mild anasarca, with diffuse edema of the subcutaneous fat. (3) Chest pain Pedro Burton Aug 01, 2020 18:12
--- NOTE | 2020-08-01 19:15 | NUR ---
NURSE NOTES: Received report from Epifanio IRIWN. Pt. is in bed, asleep, responsive to stimuli, breathing even and unlabored. With O2@ 3lpm via nc, well tolerated. With GT patent and intact when checked, with feeding infusing and tolerating well. Will jayla. soft wrist restraints attached. With good circulation when checked, skin intact.Will continue to monitor.
--- NOTE | 2020-08-01 19:41 | NUR ---
NURSE HAND-OFF: Important Events on Shift: Patient is tolerating g-tube feeding well. Patient had electrolyte replacements. Patient Status: Stable Diet: Glucerna 1.5@50cc/[id number]. Pending Orders: N/A Pending Results/Labs:N/A Pending MD notification:N/A Latest Vital Signs: Temperature 98.4 , Pulse 71 , B/P 127 /59 , Respiratory Rate 18 , O2 SAT 99 , Nasal Cannula, O2 Flow Rate 3.0 . Vital Sign Comment: Stable Latest Knox Fall Score: 75 Fall Risk: High Risk Safety Measures: Call light Within Reach, Bed Alarm Zone 2, Side Rails Side Rails x3, Bed position Low and Locked. Fall Precautions: Yellow Socks Yellow Gown Door Sign Patient Fall Education Report given to George Horta RN.
[2020-08-01 20:00] VITALS: BP 126/72
--- NOTE | 2020-08-01 21:27 | General Progress Note ---
Subjective Allergies: Coded Allergies: No Known Allergies (Unverified , 07/24/20) Subjective ROS Limited/Unobtainable: Yes - Patient with advanced Parkinson's/dementia unable to follow any current commands or answer most questions coherently Allergies: Coded Allergies: No Known Allergies (Unverified , 07/24/20) Subjective No acute events overnight. PEG tube working well, tube feeding started. Patient still speaking incoherently but able to articulate he did not have pain at this time. Objective Last 24 Hour Vital Signs Date Time Temp Pulse Resp B/P (MAP) Pulse Ox O2 Delivery O2 Flow Rate FiO2 08/01/20 19:05 95 Nasal Cannula 3.0 32 08/01/20 16:00 98.4 71 18 127/59 (81) 99 08/01/20 12:00 97.9 63 19 109/57 (74) 100 08/01/20 09:25 71 126/57 08/01/20 09:00 Venturi Mask 6.0 Nasal Cannula 3.0 08/01/20 08:00 97.8 71 16 126/57 (80) 95 08/01/20 04:00 97.1 79 21 139/72 (94) 100 08/01/20 00:00 98.2 88 18 143/70 (94) 100 07/31/20 21:23 76 125/81 Intake and Output 07/31/20 08/01/20 19:00 07:00 Intake Total 130 ml 210 ml Balance 130 ml 210 ml Intake Oral 30 ml Free Water 150 ml IV Total 130 ml Tube Feeding 30 ml # Voids 3 4 Laboratory Tests 08/01/20 05:45: White Blood Count 14.6#H, Red Blood Count 3.84L, Hemoglobin 11.8L, Hematocrit 37.4L, Mean Corpuscular Volume 97, Mean Corpuscular Hemoglobin 30.8, Mean Corpuscular Hemoglobin Concent 31.6L, Red Cell Distribution Width 15.1H, Platelet Count 166, Mean Platelet Volume 7.5, Neutrophils (%) (Auto) , Lymphocytes (%) (Auto) , Monocytes (%) (Auto) , Eosinophils (%) (Auto) , Basophils (%) (Auto) , Differential Total Cells Counted 100, Neutrophils % (Manual) 94H, Lymphocytes % (Manual) 3L, Monocytes % (Manual) 3, Eosinophils % (Manual) 0, Basophils % (Manual) 0, Band Neutrophils 0, Platelet Estimate Adequate, Platelet Morphology Normal, Anisocytosis 1+, Sodium Level 145, Pot assium Level 3.4L, Chloride Level 111H, Carbon Dioxide Level 30, Anion Gap 4L, Blood Urea Nitrogen 34H, Creatinine 1.2, Estimat Glomerular Filtration Rate > 60, Glucose Level 139H, Calcium Level 9.2, Phosphorus Level 2.0L, Magnesium Level 2.1 Height (Feet): 5 Height (Inches): 8.00 Weight (Pounds): 174 Objective General Appearance: Verbalizing in incoherent speech, no acute distress EENT: PERRL/EOMI Neck: non-tender Cardiovascular: normal rate, regular rhythm, no JVD Respiratory/Chest: chest wall non-tender, lungs clear, normal breath sounds Abdomen: normal bowel sounds, non tender, soft, PEG tube in place, with tube feeds infusing Extremities: other - In restraints Edema: no edema noted Arm (L), no edema noted Arm (R), no edema noted Leg (L), no edema noted Leg (R), no edema noted Pedal (L), no edema noted Pedal (R), no edema noted Generalized Neurologic: grossly normal Skin: normal pigmentation, warm/dry Assessment/Plan Assessment/Plan: A: # 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, 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 based on Heme/Onc note and pathology report # Hypercalcemia 2/2 Malignancy (MM) vs vs paraneoplastic syndrome (squamous cell cancer)improving # Acute vs Chronic Encephalopathy 2/2 Hypercalcemia, worsening Parkinson /dementia # PEG status # Atypical Chest Pain w/ ACS r/o # New vs Paroxsymal Afib # Pulmonary HTN likely Class 3 # New vs Chronic HFpEF 2/2 ischemic vs non-ischemic vs tachyarrhythmia induced cardiomyopathy - compensated # Chronic Respiratory Failure on home O2 # Normocytic Anemia 2/2 ACD vs DEYANIRA # Hx of COPD # Hx of Dementia # ?Parkinson's related dementia # Essential HTN P: - hemodynamically stable - continue simple mask due to desaturation, Keep O2 > 88% - delia prn - GI Dr. Diego consulted, PEG tube functioning well - per Heme/Onc note and pathology report, biopsy results show SCC of lung - outpatient PET per heme/onc - ECHO: EF 60%, mild diastolic dysfunction, RSVP 65 - CHADVASC: 4, pericardial no anticoagulation due to high bleeding risk, continue aspirin - keep K > 4, Mg > 2 - metoprolol 25 mg BID - monitor renal function - s/p Pamidronate - off fluids, lasix - calcium normalized - f/u SPEP, Immunofixation, LDH, B2 microglobulin - consult Dr. Chester, Pulm, recs appreciated - consult Dr. Otero, Cardio, recs appreciated - consult Dr. Laura, Heme/onc, recs appreciated - CM/SW - CODE: Full Diet: Tube feeding per GI through PEG tube GI: none DVT: Heparin 5000U BID Dispo: SW for POA and medical decision making; ready to transfer to SNF Time spent on this encounter was 55 minutes which included 40 minutes of counseling and care coordination. I discussed with the nurse at bedside. I also discussed patient's care with his brother Yusuf regarding patient's condition, possible treatment options, prognosis, and disposition. Time of note may not reflect time patient was seen. Yamil Murphy M.D. Aug 01, 2020 21:27
[2020-08-01] MEDS: Atorvastatin 80mg tab ORAL SCH (21:52)
--- NOTE | 2020-08-01 23:40 | Psychiatric Progress Note ---
Psychiatry Progress Note Psychiatry Progress Note Medications Current Medications Medications (Trade) Dose Ordered Sig/Jordan Route PRN Reason Start Time Stop Time Status Last Admin Dose Admin Acetaminophen (Tylenol) 650 mg Q4H PRN ORAL Mild Pain (Pain Scale 1-3) 07/24/20 22:00 08/23/20 21:59 08/01/20 21:51 Aspirin (ASA) 81 mg DAILY ORAL 07/25/20 09:00 09/08/20 08:59 08/01/20 09:25 Atorvastatin Calcium (Lipitor) 80 mg BEDTIME ORAL 07/25/20 21:00 10/23/20 20:59 08/01/20 21:52 Carbidopa/Levodopa (Sinemet 10/100) 1 tab THREE TIMES A DAY ORAL 07/26/20 18:00 08/25/20 17:59 08/01/20 18:43 Dexamethasone Sodium Phosphate (Decadron 4mg/ml vial) 2 mg Q6HR IVP 07/28/20 12:00 10/23/20 11:59 08/01/20 18:44 Heparin Sodium (Porcine) (Heparin 5000 units/ml) 5,000 units EVERY 12 HOURS SUBQ 07/25/20 21:00 09/08/20 20:59 08/01/20 21:53 Hydralazine HCl (Apresoline) 25 mg Q6HR PRN ORAL For High Blood Pressure >170 07/25/20 12:45 10/23/20 12:44 Metoprolol Tartrate (Lopressor) 25 mg Q12HR ORAL 07/25/20 21:00 10/23/20 20:59 08/01/20 21:52 Ondansetron HCl (Zofran) 4 mg Q4H PRN IVP Nausea & Vomiting 07/24/20 22:00 08/23/20 21:59 Quetiapine Fumarate (SEROqueL) 50 mg BEDTIME ORAL 07/26/20 21:00 09/09/20 20:59 08/01/20 21:52 Neurological/Psychiatric: Denies: no symptoms, anxiety, depressed, emotional problems, headache, numbness, paresthesia, pre-existing deficit, seizure, tingling, tremors, weakness, other Allergies: Coded Allergies: No Known Allergies (Unverified , 07/24/20) Objective Data Height (Feet): 5 Height (Inches): 8.00 Weight (Pounds): 174 General Appearance: no apparent distress Additional Comments: awake, oriented to self only, confused, disoriented. Mood is agitated. Affect is flat. Thought process, there is a paucity of thought content. Thought content, no suicidal or homicidal ideation. Cognition is impaired. Insight and judgment, impaired. Assessment/Plan Vancleave I: ASSESSMENT: Vancleave I Dementia with behavior disturbance. Acute toxic encephalopathy. Vancleave II Deferred. Vancleave III Emphysema. Vancleave IV Low. Vancleave V 20. PLAN: 1. Seroquel 25 mg at bedtime. 2. Discussed with the nurse and primary physician. Status Narrative ASSESSMENT: Vancleave I Dementia with behavior disturbance. Acute toxic encephalopathy. Vancleave II Deferred. Vancleave III Emphysema. Vancleave IV Low. Vancleave V 20. PLAN: 1. Seroquel 25 mg at bedtime. 2. Discussed with the nurse and primary physician. Assessment/Plan: ASSESSMENT: Vancleave I Dementia with behavior disturbance. Acute toxic encephalopathy. Vancleave II Deferred. Vancleave III Emphysema. Vancleave IV Low. Vancleave V 20. PLAN: 1. Seroquel 25 mg at bedtime. 2. Discussed with the nurse and primary physician. Froilan Lee MD Aug 01, 2020 23:40
[2020-08-02] VITALS: BP 128/73
--- NOTE | 2020-08-02 02:34 | NUR ---
GT patency checked, patent and intact. With no residual noted. Increased tube feeding rate to 50cc/hr, continuously monitored for any untoward s/s. Due meds given via gt, well tolerated. HOB kept elevated for aspiration precaution. Slept @ long intervals. Turned and repositioned q2h for comfort and circulation. With jayla. soft wrist restraints, released q2h and checked circulation, with good capillary refill and no skin breakdown. Still noted with restlessness, trying to remove all contraptions. Frquent visual check made. Morning care provided. Kept clean and dry. Wound treatment provided, with dressing dry and intact on sacral area. Vital signs stable. Will continue with plan of care.
[2020-08-02 04:00] VITALS: BP 117/95
--- NOTE | 2020-08-02 07:29 | NUR ---
NURSE HAND-OFF: Important Events on Shift:[]GT feeding with no residual Patient Status: []stable Diet: []on gt feeding of Glucerna 1.5 x 50cc/hr Pending Orders: [] Pending Results/Labs:[] Pending MD notification:[] Latest Vital Signs: Temperature 97.3 , Pulse 80 , B/P 117 /95 , Respiratory Rate 18 , O2 SAT 97 , Nasal Cannula, O2 Flow Rate 3.0 . Vital Sign Comment: [] Latest Knox Fall Score: 75 Fall Risk: High Risk Safety Measures: Call light Within Reach, Bed Alarm Zone 2, Side Rails Side Rails x3, Bed position Low and Locked. Fall Precautions: Yellow Socks Yellow Gown Door Sign Patient Fall Education Report given to []. FRANCISCO JAVIER Loya
--- NOTE | 2020-08-02 07:30 | NUR ---
NURSE NOTES: Received patient A/A/Ox1, confused. mumbles. On 3L o2 via NC with HOB elevated for aspiration precautions. On Gt running well with Glucerna 1.5 @ 50cc for 20hrs. off @ 08 and resume @ 12H. tolerating well. No gastric residual noted. On P200 mattress inplaced for skin integrity. NO apparent distress noted. PIV patent and intact. Bed is in the lowest position. siderails are upx3. call light is within easy reach. bed alarm and lock mode activated. will cont the plan of care. Addendum: 08/02/20 at 0939 by TINA FELDER LVN on jayla soft wrists restraints due to pulling out devices. will cont to monitor.
[2020-08-02 08:00] VITALS: BP 138/75
[2020-08-02] MEDS: Levodopa/Carbidopa 10/100 tab ORAL SCH ×3 (08:19→17:53)
[2020-08-02] MEDS: Aspirin Baby 81mg ORAL SCH (08:19)
[2020-08-02] MEDS: Heparin 5000 units/ml inj SUBQ SCH (08:20)
--- NOTE | 2020-08-02 08:36 | General Progress Note ---
Subjective ROS Limited/Unobtainable: No Allergies: Coded Allergies: No Known Allergies (Unverified , 07/24/20) Objective Last 24 Hour Vital Signs Date Time Temp Pulse Resp B/P (MAP) Pulse Ox O2 Delivery O2 Flow Rate FiO2 08/02/20 08:20 74 138/78 08/02/20 07:45 97 Nasal Cannula 3.0 32 08/02/20 04:00 97.3 80 18 117/95 (102) 97 08/02/20 00:00 97.6 79 18 128/73 (91) 99 08/01/20 22:21 97.2 08/01/20 21:52 75 126/72 08/01/20 21:00 Venturi Mask 6.0 Nasal Cannula 3.0 08/01/20 20:00 96.5 78 18 126/72 (90) 95 75 08/01/20 19:05 95 Nasal Cannula 3.0 32 08/01/20 16:00 98.4 71 18 127/59 (81) 99 08/01/20 12:00 97.9 63 19 109/57 (74) 100 08/01/20 09:25 71 126/57 08/01/20 09:00 Venturi Mask 6.0 Nasal Cannula 3.0 Intake and Output 08/01/20 08/02/20 19:00 07:00 Intake Total 681.6667 ml Balance 681.6667 ml IV Total 281.6667 ml Tube Feeding 400 ml Height (Feet): 5 Height (Inches): 8.00 Weight (Pounds): 174 General Appearance: no apparent distress EENT: normal ENT inspection Neck: supple Respiratory/Chest: decreased breath sounds Abdomen: normal bowel sounds, non tender, soft Extremities: non-tender Assessment/Plan Problem List: (1) Dysphagia ICD Codes: R13.10 - Dysphagia, unspecified SNOMED: 97649921, [id number] (2) Abdominal pain ICD Codes: R10.9 - Unspecified abdominal pain SNOMED: 49301508 (3) Chest pain ICD Codes: R07.9 - Chest pain, unspecified SNOMED: 99032792 Qualifiers: Qualified Codes: R07.9 - Chest pain, unspecified (4) Lung mass ICD Codes: R91.8 - Other nonspecific abnormal finding of lung field SNOMED: 699611732 Assessment/Plan: s/p GT placement GTF monitor for residual dc planning pending José Diego MD Aug 02, 2020 08:36
--- NOTE | 2020-08-02 09:07 | Hematology/Onc Progress Note ---
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 does occur with malignancy, unlikely is new primary # Acute vs Chronic Encephalopathy 2/2 Hypercalcemia, worsening Parkinson/dementia --> r/o infectious etiology # Normocytic Anemia 2/2 ACD vs DEYANIRA --> anemia panel if lower # Pulmonary HTN likely Class 3 # ?Chronic HFpEF 2/2 ischemic vs non-ischemic vs tachyarrhythmia induced cardiomyopathy - compensated # ?Chronic Respiratory Acidosis on home O2 # Hx of COPD # Hx of Dementia # Dysphagia s/p gtube # Essential HTN # Dvt ppx heparin sq Appreciate consultation and dw RN Subjective Constitutional: Denies: no symptoms, chills, fever, malaise, weakness, other HEENT: Denies: no symptoms, eye pain, blurred vision, tearing, double vision, ear pain, ear discharge, nose pain, nose congestion, throat pain, throat swelling, mouth pain, mouth swelling, other Cardiovascular: Denies: no symptoms, chest pain, edema, irregular heart rate, lightheadedness, palpitations, syncope, other Gastrointestinal/Abdominal: Denies: no symptoms, abdomen distended, abdominal pain, black stools, tarry stools, blood in stool, constipated, diarrhea, difficulty swallowing, nausea, poor appetite, poor fluid intake, rectal bleeding, vomiting, other Genitourinary: Denies: no symptoms, burning, discharge, frequency, flank pain, hematuria, incontinence, pain, urgency, other Neurologic/Psychiatric: Denies: no symptoms, anxiety, depressed, emotional problems, headache, numbness, paresthesia, pre-existing deficit, seizure, tingling, tremors, weakness, other Allergies: Coded Allergies: No Known Allergies (Unverified , 07/24/20) Subjective 07/28 on restraints, on 14L on venturi mask, no bleeding, meds noted, hgb 10.5, biopsy done 07/26 07/29 on restraints, venturi mask, labs have been reviewed, meds noted 07/30 on restraints, confused, is on 6l, no bleeding, labs noted 07/31 with peg and egd potentially today as per GI, no bleeding, meds noted 08/01 meds noted, labs reviewed, no bleeding noted 08/02 meds reviewed, no night sweats, no fc Objective Objective Current Medications Medications (Trade) Dose Ordered Sig/Jordan Route PRN Reason Start Time Stop Time Status Last Admin Dose Admin Acetaminophen (Tylenol) 650 mg Q4H PRN ORAL Mild Pain (Pain Scale 1-3) 07/24/20 22:00 08/23/20 21:59 08/01/20 21:51 Aspirin (ASA) 81 mg DAILY ORAL 07/25/20 09:00 09/08/20 08:59 08/02/20 08:19 Atorvastatin Calcium (Lipitor) 80 mg BEDTIME ORAL 07/25/20 21:00 10/23/20 20:59 08/01/20 21:52 Carbidopa/Levodopa (Sinemet 10/100) 1 tab THREE TIMES A DAY ORAL 07/26/20 18:00 08/25/20 17:59 08/02/20 08:19 Dexamethasone Sodium Phosphate (Decadron 4mg/ml vial) 2 mg Q6HR IVP 07/28/20 12:00 10/23/20 11:59 08/02/20 05:34 Heparin Sodium (Porcine) (Heparin 5000 units/ml) 5,000 units EVERY 12 HOURS SUBQ 07/25/20 21:00 09/08/20 20:59 08/02/20 08:20 Hydralazine HCl (Apresoline) 25 mg Q6HR PRN ORAL For High Blood Pressure >170 07/25/20 12:45 10/23/20 12:44 Metoprolol Tartrate (Lopressor) 25 mg Q12HR ORAL 07/25/20 21:00 10/23/20 20:59 08/02/20 08:20 Ondansetron HCl (Zofran) 4 mg Q4H PRN IVP Nausea & Vomiting 07/24/20 22:00 08/23/20 21:59 Quetiapine Fumarate (SEROqueL) 50 mg BEDTIME ORAL 07/26/20 21:00 09/09/20 20:59 08/01/20 21:52 Last 24 Hour Vital Signs Date Time Temp Pulse Resp B/P (MAP) Pulse Ox O2 Delivery O2 Flow Rate FiO2 08/02/20 08:20 74 138/78 08/02/20 08:00 98.1 74 17 138/75 (96) 100 08/02/20 07:45 97 Nasal Cannula 3.0 32 08/02/20 04:00 97.3 80 18 117/95 (102) 97 08/02/20 00:00 97.6 79 18 128/73 (91) 99 08/01/20 22:21 97.2 08/01/20 21:52 75 126/72 08/01/20 21:00 Venturi Mask 6.0 Nasal Cannula 3.0 08/01/20 20:00 96.5 78 18 126/72 (90) 95 75 08/01/20 19:05 95 Nasal Cannula 3.0 32 08/01/20 16:00 98.4 71 18 127/59 (81) 99 08/01/20 12:00 97.9 63 19 109/57 (74) 100 08/01/20 09:25 71 126/57 08/01/20 09:00 Venturi Mask 6.0 Nasal Cannula 3.0 08/01/20 08:00 97.8 71 16 126/57 (80) 95 08/01/20 04:00 97.1 79 21 139/72 (94) 100 08/01/20 00:00 98.2 88 18 143/70 (94) 100 07/31/20 21:23 76 125/81 07/31/20 21:00 Venturi Mask 6.0 07/31/20 20:00 97.2 88 18 146/75 (98) 100 07/31/20 19:30 96 Venturi Mask 6.0 31 07/31/20 16:00 98.6 97 20 135/80 (98) 97 07/31/20 12:30 97.7 89 20 112/77 99 Venturi Mask 6 07/31/20 12:25 88 18 99 07/31/20 12:24 80 18 98 07/31/20 12:15 79 17 147/74 98 Venturi Mask 6 07/31/20 12:10 77 18 138/81 97 Venturi Mask 6 07/31/20 12:06 98.4 73 15 112/74 98 Venturi Mask 6 Intake and Output 08/01/20 08/02/20 19:00 07:00 Intake Total 681.6667 ml Balance 681.6667 ml IV Total 281.6667 ml Tube Feeding 400 ml Labs Test 07/31/20 05:04 08/01/20 05:45 White Blood Count 9.7 K/UL (4.8-10.8) 14.6 K/UL (4.8-10.8) Red Blood Count 3.62 M/UL (4.70-6.10) 3.84 M/UL (4.70-6.10) Hemoglobin 11.3 G/DL (14.2-18.0) 11.8 G/DL (14.2-18.0) Hematocrit 35.0 % (42.0-52.0) 37.4 % (42.0-52.0) Mean Corpuscular Volume 97 FL (80-99) 97 FL (80-99) Mean Corpuscular Hemoglobin 31.2 PG (27.0-31.0) 30.8 PG (27.0-31.0) Mean Corpuscular Hemoglobin Concent 32.3 G/DL (32.0-36.0) 31.6 G/DL (32.0-36.0) Red Cell Distribution Width 14.4 % (11.6-14.8) 15.1 % (11.6-14.8) Platelet Count 161 K/UL (150-450) 166 K/UL (150-450) Mean Platelet Volume 6.9 FL (6.5-10.1) 7.5 FL (6.5-10.1) Neutrophils (%) (Auto) 70.1 % (45.0-75.0) % (45.0-75.0) Lymphocytes (%) (Auto) 19.0 % (20.0-45.0) % (20.0-45.0) Monocytes (%) (Auto) 9.7 % (1.0-10.0) % (1.0-10.0) Eosinophils (%) (Auto) 0.2 % (0.0-3.0) % (0.0-3.0) Basophils (%) (Auto) 0.9 % (0.0-2.0) % (0.0-2.0) Carcinoembryonic Antigen 7.2 ng/mL (0.0-4.7) Differential Total Cells Counted 100 Neutrophils % (Manual) 94 % (45-75) Lymphocytes % (Manual) 3 % (20-45) Monocytes % (Manual) 3 % (1-10) Eosinophils % (Manual) 0 % (0-3) Basophils % (Manual) 0 % (0-2) Band Neutrophils 0 % (0-8) Platelet Estimate Adequate Platelet Morphology Normal Anisocytosis 1+ Sodium Level 145 MMOL/L (136-145) Potassium Level 3.4 MMOL/L (3.5-5.1) Chloride Level 111 MMOL/L (98-107) Carbon Dioxide Level 30 MMOL/L (21-32) Anion Gap 4 mmol/L (5-15) Blood Urea Nitrogen 34 mg/dL (7-18) Creatinine 1.2 MG/DL (0.55-1.30) Estimat Glomerular Filtration Rate > 60 mL/min (>60) Glucose Level 139 MG/DL (74-106) Calcium Level 9.2 MG/DL (8.5-10.1) Phosphorus Level 2.0 MG/DL (2.5-4.9) Magnesium Level 2.1 MG/DL (1.8-2.4) Height (Feet): 5 Height (Inches): 8.00 Weight (Pounds): 174 Objective Physical Exam General appearance: alert, cooperative, no distress Heent: Normocephalic, without obvious abnormality, atraumatic, EOM's intact. Fundi benign supple, symmetrical, trachea midline, no adenopathy Lungs: clear to auscultation bilaterally CV: irr irr, S1, S2 normal, no murmur, click, rub or gallop Abd: soft, non-tender. Bowel sounds normal ++gt Extremities: extremities normal, no cce Pulses: 2+ and symmetric Skin: Skin color, texture, turgor normal Neurologic: Grossly normal Al Laura MD Aug 02, 2020 09:07
--- NOTE | 2020-08-02 09:33 | Pulmonology Progress Note ---
Subjective ROS Limited/Unobtainable: No Interval Events: CXR reviewed; unchanged Constitutional: Reports: no symptoms HEENT: Repors: no symptoms Respiratory: Reports: no symptoms Cardiovascular: Reports: no symptoms Gastrointestinal/Abdominal: Reports: no symptoms Genitourinary: Reports: no symptoms Allergies: Coded Allergies: No Known Allergies (Unverified , 07/24/20) All Systems: reviewed and negative except above Objective Last 24 Hour Vital Signs Date Time Temp Pulse Resp B/P (MAP) Pulse Ox O2 Delivery O2 Flow Rate FiO2 08/02/20 08:20 74 138/78 08/02/20 08:00 98.1 74 17 138/75 (96) 100 08/02/20 07:45 97 Nasal Cannula 3.0 32 08/02/20 04:00 97.3 80 18 117/95 (102) 97 08/02/20 00:00 97.6 79 18 128/73 (91) 99 08/01/20 22:21 97.2 08/01/20 21:52 75 126/72 08/01/20 21:00 Venturi Mask 6.0 Nasal Cannula 3.0 08/01/20 20:00 96.5 78 18 126/72 (90) 95 75 08/01/20 19:05 95 Nasal Cannula 3.0 32 08/01/20 16:00 98.4 71 18 127/59 (81) 99 08/01/20 12:00 97.9 63 19 109/57 (74) 100 Intake and Output 08/01/20 08/02/20 18:59 06:59 Intake Total 681.6667 ml Balance 681.6667 ml IV Total 281.6667 ml Tube Feeding 400 ml General Appearance: no acute distress HEENT: normocephalic Respiratory: chest wall non-tender, decreased breath sounds Cardiovascular: normal peripheral pulses, normal rate Abdomen: normal bowel sounds Extremities: no cyanosis Current Medications Medications (Trade) Dose Ordered Sig/Jordan Route PRN Reason Start Time Stop Time Status Last Admin Dose Admin Acetaminophen (Tylenol) 650 mg Q4H PRN ORAL Mild Pain (Pain Scale 1-3) 07/24/20 22:00 08/23/20 21:59 08/01/20 21:51 Aspirin (ASA) 81 mg DAILY ORAL 07/25/20 09:00 09/08/20 08:59 08/02/20 08:19 Atorvastatin Calcium (Lipitor) 80 mg BEDTIME ORAL 07/25/20 21:00 10/23/20 20:59 08/01/20 21:52 Carbidopa/Levodopa (Sinemet 10/100) 1 tab THREE TIMES A DAY ORAL 07/26/20 18:00 08/25/20 17:59 08/02/20 08:19 Dexamethasone Sodium Phosphate (Decadron 4mg/ml vial) 2 mg Q6HR IVP 07/28/20 12:00 10/23/20 11:59 08/02/20 05:34 Heparin Sodium (Porcine) (Heparin 5000 units/ml) 5,000 units EVERY 12 HOURS SUBQ 07/25/20 21:00 09/08/20 20:59 08/02/20 08:20 Hydralazine HCl (Apresoline) 25 mg Q6HR PRN ORAL For High Blood Pressure >170 07/25/20 12:45 10/23/20 12:44 Metoprolol Tartrate (Lopressor) 25 mg Q12HR ORAL 07/25/20 21:00 10/23/20 20:59 08/02/20 08:20 Ondansetron HCl (Zofran) 4 mg Q4H PRN IVP Nausea & Vomiting 07/24/20 22:00 08/23/20 21:59 Quetiapine Fumarate (SEROqueL) 50 mg BEDTIME ORAL 07/26/20 21:00 09/09/20 20:59 08/01/20 21:52 Assessment/Plan Assessment/Plan IMPRESSION: 1. Hypercalcemia, suspect secondary to malignancy. 2. Lung mass. Confirmed CA 3. Emphysema. 4. Hypertension. DISCUSSION: S/P CT-guided lung biopsy. Continue Decadron Continue O2; now on low flow Decreased FiO2 CT biopsy confirms squamous cell CA Oly Lara Omar Syed MD Aug 02, 2020 09:33
[2020-08-02 12:00] VITALS: BP 139/82
[2020-08-02] MEDS ORDERED: ASPIRIN81 MG ORAL (12:42)
--- NOTE | 2020-08-02 12:42 | Nephrology Progress Note ---
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 # Pulmonary HTN likely Class 3 # Hypercalcemia 2/2 ?Malignancy (MM) vs vs paraneoplastic syndrome ( squamous cell cancer) vs PHPTH # ?Chronic HFpEF 2/2 ischemic vs non-ischemic vs tachyarrhythmia induced cardiomyopathy - compensated # ?Chronic Respiratory Acidosis on home O2 # Normocytic Anemia 2/2 ACD vs DEYANIRA # Hx of COPD # Hx of Dementia # ?Parkinson's related dementia # Essential HTN - S/P CT-guided lung biopsy--> 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 - monitor free calcium - s/p pamindronate - trial of sinemet for tremors - pulm eval - surg eval - monitor calcium level - continue with steroids - monitor BP - avoid nephrotoxins Subjective Subjective S/P CT-guided lung biopsy intermittently agitated and combative continues to have tremors sinemet added s/p PEG path showing 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 Objective Objective Last 24 Hour Vital Signs Date Time Temp Pulse Resp B/P (MAP) Pulse Ox O2 Delivery O2 Flow Rate FiO2 08/02/20 12:00 97.1 79 18 139/82 (101) 97 08/02/20 09:00 Venturi Mask 6.0 Nasal Cannula 3.0 08/02/20 08:20 74 138/78 08/02/20 08:00 98.1 74 17 138/75 (96) 100 08/02/20 07:45 97 Nasal Cannula 3.0 32 08/02/20 04:00 97.3 80 18 117/95 (102) 97 08/02/20 00:00 97.6 79 18 128/73 (91) 99 08/01/20 22:21 97.2 08/01/20 21:52 75 126/72 08/01/20 21:00 Venturi Mask 6.0 Nasal Cannula 3.0 08/01/20 20:00 96.5 78 18 126/72 (90) 95 75 08/01/20 19:05 95 Nasal Cannula 3.0 32 08/01/20 16:00 98.4 71 18 127/59 (81) 99 Intake and Output 08/01/20 08/02/20 19:00 07:00 Intake Total 681.6667 ml Balance 681.6667 ml IV Total 281.6667 ml Tube Feeding 400 ml Height (Feet): 5 Height (Inches): 8.00 Weight (Pounds): 174 Terence Garcia M.D. Aug 02, 2020 12:42
[2020-08-02] MEDS ORDERED: HEPARIN SO5000 UNIT2 SUBQ (12:43)
[2020-08-02] MEDS ORDERED: HYDRALAZINE HCL25 M1 ORAL (12:43)
[2020-08-02] MEDS ORDERED: SINEMET 10-1001 EACH ORAL (12:43)
[2020-08-02] MEDS ORDERED: LOPRESSOR25 M1 ORAL (12:43)
[2020-08-02] MEDS ORDERED: LIPITOR80 MG ORAL (12:43)
[2020-08-02] MEDS ORDERED: SEROQUEL25 MG ORAL (12:43)
--- NOTE | 2020-08-02 12:45 | Discharge Instructions ---
Discharge Instructions Discharge Instructions Services at Discharge: hospice Diet: tube feeding Activity: as tolerated Follow Up Orders Transition patient to hospice Yamil Murphy M.D. Aug 02, 2020 12:45
--- NOTE | 2020-08-02 13:32 | Discharge Summary ---
Discharge Summary Hospital Course Date of Admission Jul 24, 2020 at 11:51 Date of Discharge 08/02/2020 Admitting Diagnosis chest pain BEVERLEY Blum is a 79 year old male who was admitted on Jul 24, 2020 at 11:51 for Chest Pain. Past medical history of emphysema, history of smoking presents with abdominal pain sharp left lower abdomen to right abdomen severity is moderate, constant no known aggravating or alleviating factors, he states the pain also radiates to his chest patient denies shortness of breath no nausea no vomiting no fevers no chills, patient presents for evaluation and treatment no dysuria Consultations GI Dr. Diego Endocrinology Dr. Walsh Nephrology Dr. Garcia Pulmonary Dr. Chester Surgery Dr. Burton Cardiology Dr. Alegria Heme/Onc Dr. Laura Psychiatry Dr. Lee Procedures Lung biopsy PEG tube placement Hospital Course Kulwant Blum is a 79-year-old male past medical history of emphysema, history of smoking presents with abdominal pain sharp left lower abdomen to right abdomen severity is moderate, constant no known aggravating or alleviating factors, he states the pain also radiates to his chest patient denies shortness of breath no nausea no vomiting no fevers no chills, patient presents for evaluation and treatment no dysuria. During hospitalization, patient was found to have right lung tumor that was biopsied and found to be squamous cell carcinoma of lung with hilar involvement, likely stage 3-4. Given poor prognosis and functional status, after family discussion, patient will be discharged to SNF, plan to transition to hospice. He had PEG tube placed by Dr. Diego and is receiving tube feeding. Receiving decadron, needs to continue via PEG. Patient also had hypercalcemia improved with bisphosphonate treatment. # 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, 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 based on Heme/Onc note and pathology report # Hypercalcemia 2/2 Malignancy (MM) vs vs paraneoplastic syndrome (squamous cell cancer)improving # Acute vs Chronic Encephalopathy 2/2 Hypercalcemia, worsening Parkinson/dementia # PEG status # Atypical Chest Pain w/ ACS r/o # New vs Paroxsymal Afib # Pulmonary HTN likely Class 3 # New vs Chronic HFpEF 2/2 ischemic vs non-ischemic vs tachyarrhythmia induced cardiomyopathy - compensated # Chronic Respiratory Failure on home O2 # Normocytic Anemia 2/2 ACD vs DEYANIRA # Hx of COPD # Hx of Dementia # ?Parkinson's related dementia # Essential HTN P: - hemodynamically stable - continue simple mask due to desaturation, Keep O2 > 88% - duonebs prn - GI Dr. Diego consulted, PEG tube functioning well - per Heme/Onc note and pathology report, biopsy results show SCC of lung - outpatient PET per heme/onc - ECHO: EF 60%, mild diastolic dysfunction, RSVP 65 - CHADVASC: 4, pericardial no anticoagulation due to high bleeding risk, continue aspirin - keep K > 4, Mg > 2 - metoprolol 25 mg BID - monitor renal function - s/p Pamidronate - off fluids, lasix - calcium normalized - consult Dr. Chester, Pulm, recs appreciated - consult Dr. Otero, Cardio, recs appreciated - consult Dr. Laura, Heme/onc, recs appreciated - CM/SW Time spent on this discharge was 55 minutes which included 40 minutes of counseling and care coordination. I discussed with the nurse at bedside. I also discussed patient's care with his sister regarding patient's condition, prognosis, and disposition and plan for hospice. Also discussed with Heme/Onc and Nephrology regarding patient's prognosis, disposition and plan for hospice Time of note may not reflect time patient was seen. Discharge Medications New Medications: Aspirin* (Aspirin*) 81 Mg Tab.chew 81 MG ORAL DAILY for 30 Days, #30 TAB Atorvastatin (Lipitor) 80 Mg Tablet 80 MG ORAL BEDTIME for 30 Days, #30 TAB Carbidopa/Levodopa* (Sinemet 10-100 Mg Tablet*) 1 Each Tablet 1 TAB ORAL THREE TIMES A DAY for 30 Days, #90 TAB Heparin Sod (Porcine) (Heparin Sodium*) 5 000/1 Ml Vial 5000 UNITS SUBQ EVERY 12 HOURS for 30 Days, VIAL Hydralazine Hcl* (Hydralazine Hcl*) 25 Mg Tablet 25 MG ORAL Q6HR PRN for 30 Days, TAB Metoprolol Tartrate (Metoprolol Tartrate) 25 Mg Tablet 25 MG ORAL Q12HR for 30 Days, TAB Quetiapine Fumarate* (Seroquel*) 25 Mg Tablet 50 MG ORAL BEDTIME for 30 Days, TAB Discharge Condition Upon Discharge: stable Discharge Vital Signs Last Vital Signs Date Time Temp Pulse Resp B/P (MAP) Pulse Ox O2 Delivery O2 Flow Rate FiO2 08/02/20 12:00 97.1 79 18 139/82 (101) 97 08/02/20 09:00 Venturi Mask 6.0 Nasal Cannula 3.0 08/02/20 07:45 32 Discharge Disposition Patient was discharged to SNF Discharge Diagnoses: (1) SCC (squamous cell carcinoma of lung) (2) Cancer determined by lung biopsy (3) Chest pain (4) Encephalopathy (5) PEG (percutaneous endoscopic gastrostomy) status (6) Hypercalcemia of malignancy (7) (HFpEF) heart failure with preserved ejection fraction (8) COPD (chronic obstructive pulmonary disease) (9) Dementia (10) Normocytic anemia (11) Essential hypertension Discharge Instructions Discharge Instructions Services Upon Discharge: hospice Activity: as tolerated Yamil Murphy M.D. Aug 02, 2020 13:32
[2020-08-02] MEDS ORDERED: DECADRON0.25 MG/2. GT (14:23)
--- NOTE | 2020-08-02 14:51 | Surgery Progress Note ---
Surgery Progress Note Subjective Additional Comments ill appearing no acute events Objective Last 24 Hour Vital Signs Date Time Temp Pulse Resp B/P (MAP) Pulse Ox O2 Delivery O2 Flow Rate FiO2 08/02/20 12:00 97.1 79 18 139/82 (101) 97 08/02/20 09:00 Venturi Mask 6.0 Nasal Cannula 3.0 08/02/20 08:20 74 138/78 08/02/20 08:00 98.1 74 17 138/75 (96) 100 08/02/20 07:45 97 Nasal Cannula 3.0 32 08/02/20 04:00 97.3 80 18 117/95 (102) 97 08/02/20 00:00 97.6 79 18 128/73 (91) 99 08/01/20 22:21 97.2 08/01/20 21:52 75 126/72 08/01/20 21:00 Venturi Mask 6.0 Nasal Cannula 3.0 08/01/20 20:00 96.5 78 18 126/72 (90) 95 75 08/01/20 19:05 95 Nasal Cannula 3.0 32 08/01/20 16:00 98.4 71 18 127/59 (81) 99 I&O Intake and Output 08/01/20 08/02/20 19:00 07:00 Intake Total 681.6667 ml 150 ml Balance 681.6667 ml 150 ml Free Water 100 ml IV Total 281.6667 ml Tube Feeding 400 ml 50 ml Dressing: saturated Cardiovascular: RSR Respiratory: decreased breath sounds Abdomen: non-tender, present bowel sounds Extremities: no edema, no tenderness Plan Problems: (1) Abdominal pain Assessment & Plan: resolved tolerating now no complaints likely constipation patient developing breakdown in sacral region noted and care plan initiated (2) Lung mass Assessment & Plan: ct guided biopsy pending path - noted lung CA heme once input noted likely neoplasm Prior imaging studies reviewed. Emergency physician consent was on the chart, improved mild risk management. Procedural timeout performed. Localizing spiral acquisitions obtained through the chest. Intended puncture site was marked, sterilely prepped and draped. Local anesthesia with 1% lidocaine. Under CT visualization, a 17-gauge guide needle was advanced into the periphery of the target lesion. Total 3 needle passes then made using coaxially inserted 18-gauge automated biopsy gun. Specimens placed in formalin, submitted to pathology. Follow-up CT images demonstrated a small amount of air within the target lesion, and a small superficial hematoma at the puncture site. The patient otherwise tolerated the procedure well, without immediate complication. Total dose length product 900 mGycm. CTDIvol(s) 4, 6.7 x 9 mGy. Radiation dose was minimized using automated exposure control Comparison: none Findings: Intraoperative images document successful needle placement into the target lesion. Final images demonstrate small superficial hematoma at the puncture site Impression: Apparently successful right lung mass biopsy, as described. Final pathology pending The pulmonary arteries are well-opacified. No intraluminal filling defects or other findings to suggest acute pulmonary embolus are evident. The main pulmonary artery is dilated, measuring 4.3 cm in diameter, and the right and left pulmonary arteries are also dilated. The ascending thoracic aorta is ectatic although not frankly aneurysmal, measuring up to 4.3 cm in diameter. There is a mass in the right upper lobe. This demonstrates peripheral en hancement, central attenuations just above necrosis. This measures 7 x 6.5 x 7 cm. There is right hilar adenopathy, with multiple nodes in the right hilum, largest measuring 4 cm in diameter, also demonstrating some central low-attenuation. There is also mediastinal lymphadenopathy, the largest precarinal node measuring 3.7 cm long axis dimension. The lymphadenopathy results in mild narrowing of some of the segmental pulmonary arteries. The lungs are hyperinflated. There is centrilobular emphysema and bilateral bullous changes, the latter predominantly in the upper lobes but with also considerable mostly interstitial bullae in the lower lobes. Areas of scarring are demonstrated bilaterally. There is a small left pleural effusion No infiltrates are demonstr ated. The heart size is normal. There is a pericardial effusion mostly anteriorly which measures up to 11 mm in thickness. The included thyroid is unremarkable. There is bilateral gynecomastia. There is diffuse mild edema of the subcutaneous fat. Please refer to report of abdominal pelvic CT performed the same time for findings in the upper abdomen. Impression: Negative for evidence of acute pulmonary embolus or other acute pulmonary pathology. 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 Pericardial effusion Incidental finding of bilateral gynecomastia Evidence of mild anasarca, with diffuse edema of the subcutaneous fat. (3) Chest pain Pedro Burton Aug 02, 2020 14:51
--- NOTE | 2020-08-02 15:22 | NUR ---
*-*DISCHARGE PLANNED*-* PATIENT HAS BEEN ACCEPTED AND WILL BE DISCHARGED TO: [facility] P: [phone] FOR NURSE TO NURSE REPORT ROOM# 240.[facility] TRANSPORTATION SET FOR 5:30PM S/W [facility] [id number]. S/W PATIENTS SISTER ANNA MCBRIDE, WHO IS IN AGREEMENT WITH DISCHARGE PLAN.
[2020-08-02 16:15] VITALS: BP 124/81
--- NOTE | 2020-08-02 16:17 | NUR ---
NURSE NOTES: REPORT GIVEN TO MAIA @ [facility]. CALLED [facility] TO INFORM REGARDING DISCHARGE DISPOSITION. WOUND PHOTO TAKEN AND RECORDED AND TREATMENT. WILL CONT TO MONITOR.
--- NOTE | 2020-08-02 17:53 | NUR ---
NURSE NOTES: [facility] WAS @ BEDSIDE AN HOUR AGO AND MADE INFORMED OF THE DISCHARGE. PATIENT IS BEING TRANSPORTED TO [facility] VIA AMBULANCE. REMOVED HEPLOCK AND CLAMPED GTUBE. NO ACUTE RESP DISTRESS NOTED. IN STABLE CONDITION.
--- NOTE | 2020-08-03 23:15 | Psychiatric Progress Note ---
Psychiatry Progress Note Psychiatry Progress Note Subjective 08/02/20 Neurological/Psychiatric: Denies: no symptoms, anxiety, depressed, emotional problems, headache, numbness, paresthesia, pre-existing deficit, seizure, tingling, tremors, weakness, other Allergies: Coded Allergies: No Known Allergies (Unverified , 07/24/20) Objective Data Height (Feet): 5 Height (Inches): 8.00 Weight (Pounds): 174 General Appearance: no apparent distress Additional Comments: awake, oriented to self only, confused, disoriented. Mood is agitated. Affect is flat. Thought process, there is a paucity of thought content. Thought content, no suicidal or homicidal ideation. Cognition is impaired. Insight and judgment, impaired. Assessment/Plan Collins I: ASSESSMENT: Collins I Dementia with behavior disturbance. Acute toxic encephalopathy. Collins II Deferred. Collins III Emphysema. Collins IV Low. Collins V 20. PLAN: 1. Seroquel 25 mg at bedtime. 2. Discussed with the nurse and primary physician. Status Narrative ASSESSMENT: Collins I Dementia with behavior disturbance. Acute toxic encephalopathy. Collins II Deferred. Collins III Emphysema. Collins IV Low. Collins V 20. PLAN: 1. Seroquel 25 mg at bedtime. 2. Discussed with the nurse and primary physician. Assessment/Plan: ASSESSMENT: Collins I Dementia with behavior disturbance. Acute toxic encephalopathy. Collins II Deferred. Collins III Emphysema. Collins IV Low. Collins V 20. PLAN: 1. Seroquel 25 mg at bedtime. 2. Discussed with the nurse and primary physician. Froilan Lee MD Aug 03, 2020 23:15
== END 2020-08-02 17:55 | DRG 180 ==
LOC: EDBD 10:15 → EMR 10:54 → 2E 11:51 → EDBEDREQ 13:53 → 2E 07-25 12:08 → 4E 07-27 12:45
PROC: 0BBC3ZX Excision of Right Upper Lung Lobe, Percutaneous Approach, Diagnostic (ICD-10-PCS; principal; 2020-07-26)
PROC: 0DH63UZ Insertion of Feeding Device into Stomach, Percutaneous Approach (ICD-10-PCS; 2020-07-31 12:30)
DX: C34.11 Malignant neoplasm of upper lobe, right bronchus or lung (principal); G92 Toxic encephalopathy; C78.1 Secondary malignant neoplasm of mediastinum; I50.32 Chronic diastolic (congestive) heart failure; G93.40 Encephalopathy, unspecified; F02.81 Dementia in other diseases classified elsewhere, unspecified severity, with behavioral disturbance; G31.83 Neurocognitive disorder with Lewy bodies; I11.0 Hypertensive heart disease with heart failure; J43.8 Other emphysema; Z72.0 Tobacco use; E83.52 Hypercalcemia; I48.0 Paroxysmal atrial fibrillation; G20 Parkinson's disease; I27.20 Pulmonary hypertension, unspecified; R13.10 Dysphagia, unspecified; D47.2 Monoclonal gammopathy; D64.9 Anemia, unspecified
CPT/HCPCS: 32405; 36415; 71045; 71275; 74177; 80048; 80053; 81003; 82232; 82306; 82330; 82378; 82607; 82728; 82746; 82784; 82962; 83540; 83550; 83615; 83690; 83735; 83880; 83970; 84100; 84165; 84443; 84484; 85007; 85025; 85610; 85730; 86334; 93005; 93306; 94003; 94150; 94640; 94664; 96374; 96375; 99285; J2405; J2430; J7030; J7620; J8499; U0002